=== PATIENT | female | born 1965 | race African-American/Black ===

== ENCOUNTER 2020-03-23 11:25 | Outpatient (REF) | payer OTHER, SELFPAY | END 2020-03-23 11:26 | disposition home or self-care (01) | LOC: HO.LAB 11:25 | PROVIDERS: Visit Provider Internal Medicine | DX: Z20.822 Contact with and (suspected) exposure to COVID-19 (principal) | CPT/HCPCS: 36415; C9803; U0003; U0005 ==

== ENCOUNTER 2020-05-31 09:22 | Outpatient (REF) | payer OTHER, SELFPAY | END 2020-05-31 09:23 | disposition home or self-care (01) | LOC: HO.LAB 09:22 | PROVIDERS: Visit Provider Internal Medicine | DX: Z20.822 Contact with and (suspected) exposure to COVID-19 (principal) | CPT/HCPCS: C9803; U0003; U0005 ==

== ENCOUNTER 2020-07-26 08:12 | Outpatient (REF) | payer OTHER, SELFPAY ==
--- NOTE | ~2020-07-26 | CT_ITS ---
EXAMINATION: CT ABDOMEN AND PELVIS WITHOUT AND WITH CONTRAST CLINICAL INFORMATION: Right lower quadrant pain COMPARISON: Previous abdominal ultrasound most recent July [address] of the abdomen and pelvis February 2014 TECHNIQUE: Multidetector volumetric imaging was performed of the abdomen and pelvis before and after the IV administration of 85 mL of Omnipaque 350 intravenous contrast. Sagittal and coronal reformatted images were obtained on the technologist's workstation. This CT examination was performed using dose optimization techniques as appropriate, variously including the following: *Automated exposure control *Adjustment of mA and/or kV according to patient size (this includes techniques or standardized protocols for targeted exams where dose is matched to indication/reason for exam; i.e. extremities or head) *Use of iterative reconstruction technique DLP: 2290 mGy-cm FINDINGS: LUNG BASES: The visualized lung bases are unremarkable. LIVER, GALLBLADDER, AND BILIARY TREE: The liver is normal in size, shape, and attenuation. No focal hepatic lesion or biliary ductal dilatation is present. The gallbladder is unremarkable with no evidence of radiopaque gallstones, gallbladder wall thickening, or obvious pericholecystic inflammatory changes. PANCREAS: Unremarkable SPLEEN: Unremarkable ADRENAL GLANDS: Unremarkable KIDNEYS AND URETERS: There is a 1 cm low-attenuation lesion in the upper pole of the right kidney. Difficult to visualize precontrast. Hounsfield units postcontrast measure 4 axial image 23 series 4 suggestive of a simple cyst. This is new from 2015 exam. There is a 2 x 2.6 cm low-attenuation lesion in the anterior left kidney. Hounsfield units precontrast 3 and Hounsfield units postcontrast measure 8 axial image 30 series 3 and 31 series 4 also compatible with a simple cyst. This is increased in size from 2015 exam. The kidneys are otherwise unremarkable. BLADDER: Unremarkable GASTROINTESTINAL TRACT: The small and large bowel are unremarkable. The appendix is unremarkable. ABDOMINAL WALL: There is diastasis of the rectus muscles and small umbilical hernia containing fat. LYMPH NODES: Normal VASCULAR: Unremarkable PELVIC VISCERA: The uterus has been removed. No pelvic mass is seen. OSSEOUS STRUCTURES: There are degenerative changes of the spine. CT/CT abdomen pelvis wo/w con IMPRESSION: Bilateral renal simple cysts. Otherwise unremarkable exam.
[2020-07-26] MEDS: iohexoL 350 MG/ML 100 ML INFUS..BTL IV (12:05)
[2020-07-26] MEDS: Barium Sulfate Oral (Vanilla) 450 ML ORAL.SUSP 900 ML PO (12:06)
== END 2020-07-26 08:13 | disposition home or self-care (01) ==
LOC: HO.CT 08:12
PROVIDERS: PCP Internal Medicine; Visit Provider Internal Medicine
DX: R10.31 Right lower quadrant pain (principal)
CPT/HCPCS: 74178; Q9967

== ENCOUNTER 2020-08-15 10:48 | Emergency (ER) | payer OTHER, SELFPAY ==
--- NOTE | ~2020-08-15 | XR_ITS ---
EXAMINATION: XR CHEST CLINICAL INFORMATION: SOB COMPARISON: None TECHNIQUE: 2 views of the chest were obtained. FINDINGS: No significant abnormality is noted involving the heart, lungs, mediastinum, bony thorax or soft tissues. XR/XR chest 2V IMPRESSION: Unremarkable chest examination.
[2020-08-15 10:57] VITALS: BP 173/100; PULSE 92; RESP 20; TEMP 36.7; O2SAT 95; BMI 43.2
--- NOTE | 2020-08-15 11:24 | ECG_ITS ---
Test Reason : DYSPNEA Blood Pressure : / mmHG Vent. Rate : 093 BPM Atrial Rate : 093 BPM P-R Int : 170 ms QRS Dur : 072 ms QT Int : 346 ms P-R-T Axes : 051 046 038 degrees QTc Int : 430 ms Normal sinus rhythm Normal ECG When compared with ECG of 17-SEP-2018 10:25, Vent. rate has increased BY 32 BPM Referred By: Lianne Whyte Electronically Signed By:Ruddy Avila
[2020-08-15 11:27] VITALS: BP 145/100; PULSE 99; RESP 22
--- NOTE | 2020-08-15 11:38 | ED_ITS ---
HPI - General Adult General Chief complaint: Dyspnea Stated complaint: WEAK SOB Time Seen by Provider: 08/15/20 11:23 Source: patient Mode of arrival: ambulatory Limitations: no limitations History of Present Illness HPI narrative: 55 y/o female with history of fibromyalgia, obesity, chronic abdominal pain who presents to the ER with 2-3 days of body aches, fatigue, sore throat, nasal congestion and dry cough. She states her symptoms started with a sore throat and post nasal drip and then evolved into coughing and body aches. It is now settled in my chest. She is tired and achey. She has had some poor PO intake and reports a generalized headache. No fevers or neck stiffness. No photophobia. No vision changes, focal weakness, numbness or tingling. She is fully vaccinated against COVID-19 but would like to be tested because she has young grandchildren. MD complaint: URI symptoms Onset (ago): day(s) (3) Location: head and chest Radiation: non-radiation Severity: moderate Quality: aching Pain Consistency: constant Relieving factors: rest Exacerbating factors: movement Associated symptoms: cough, headaches, loss of appetite, malaise, shortness of breath and weakness Treatments prior to arrival: none Related Data Previous Rx's Medication Instructions Recorded azithromycin [Zithromax Z-Jagjit] See Rx Instructions .ROUTE 08/15/20 .COMPLEX #6 tab benzonatate [Tessalon Perles] 100 mg PO TID PRN #10 cap 08/15/20 prednisone 40 mg PO DAILY #10 tab 08/15/20 Allergies Allergy/AdvReac Type Severity Reaction Status Date / Time fluticasone [From Flonase] Allergy Mild HIVES Unverified 11/06/19 17:41 acetaminophen [Vicodin] Allergy Unknown Verified 12/04/18 00:00 amoxicillin [AMOXICILLIN] Allergy Unknown HIVES, Unverified 11/06/19 17:41 NAUSEA hydrocodone [Vicodin] Allergy Unknown Verified 12/04/18 00:00 Flonase Allergy Unknown Uncoded 12/04/18 00:00 From VICODIN Allergy Unknown HIVES Uncoded 11/06/19 17:41 Review of Systems Review of Systems: Constitutional: No Fever, No Chills ENT/Mouth: + sore throat, + Rhinorrhea, No Swallowing Difficulty Eyes: No Eye Pain, No Swelling, No Redness Cardiovascular: No Chest Pain, + SOB, No Orthopnea, No Edema Respiratory: + Cough, No Sputum, No Wheezing, + dyspnea Gastrointestinal: + Nausea, No Vomiting, No Diarrhea, No abdominal Pain, No Hematochezia, No Melena Genitourinary: No Dysuria, No Urinary Frequency, No Hematuria Musculoskeletal: No joint pain, No Myalgias Skin: No Skin Lesions, No rash Neuro: No Weakness, No Numbness, No Dizziness, + Headache Psych: No Anxiety/Panic, No Depression Heme/Lymph: No Bruising, No Lymphadenopathy Endocrine: No Polyuria, No Polydipsia [facility] Past Medical History Attestation statement: The following information was validated with the patient. Social History Social History Advance Directives: Yes Advance Directives Information Provided: Yes Advance Directives on File: No Patient : No Physical Exam Vital Signs: Vital Signs: Last Vital Signs Temp 98.5 F 08/15/20 12:27 Pulse 75 08/15/20 12:27 Resp 17 08/15/20 12:27 BP 146/80 H 08/15/20 12:27 Pulse Ox 96 08/15/20 12:27 Body Mass Index 43.2 Appearance: Alert. Oriented X3. No acute distress. Eyes: Pupils equal, round and reactive to light. ENT: Pharynx with mild generalized ertythema. Neck: Normal inspection. Neck supple. CVS: Normal heart rate and rhythm. Pulses normal. Respiratory: No respiratory distress. Breath sounds normal. Abdomen: Soft and nontender. +BS x4 Skin: Skin warm and dry. Normal skin color. Normal skin turgor. No rashes. Extremities: No lower extremity edema. Neuro: Oriented X 3. No motor deficit. No sensory deficit. Course Course Course Narrative: 55 y/o female presenting with URI type symptoms of dry cough, sore throat, body aches x3 days. VS are stable and exam is benign. No hypoxia or tachycardia. Will get CXR, EKG and lab workup. Antitussive and IVF ordered. COVID and Strep swabs sent. Reevaluation(s) Reevaluation #1: Workup is unremarkable. Viral PCR and Strep are negative. Her symptoms are most likely due to viral etiology. SpO2 96% no respiratory distress. Will treat for acute bronchtitis and have her f/u with her PCP this week. Stable for d/c home. Medical Decision Making Lab Data Result diagrams: 08/15/20 12:08 08/15/20 12:08 Labs: Lab Results 08/15/20 08/15/20 08/15/20 Range/Units 12:08 12:08 12:08 WBC 8.5 (4.8-10.8) X10*3/uL RBC 4.86 (4.20-5.50) X10*6/uL Hgb 13.6 (12.0-16.0) g/dl Hct 41.4 (37-47) % MCV 85.2 (80-98) fL MCH 28.0 (27.0-33.0) pg MCHC 32.9 (31.0-35.0) g/dl RDW 13.0 (11.0-16.0) % Plt Count 320 (160-400) X10*3/uL MPV 8.6 L (9.4-12.3) fL Immature Gran % (Auto) 0.2 (0.0-0.4) % Neut % (Auto) 62.7 (45-73) % Lymph % (Auto) 23.1 (20-40) % [place] % (Auto) 10.3 (2-11) % Eos % (Auto) 3.5 (0-4) % Baso % (Auto) 0.2 (0-2) % Lymph # (Auto) 2.0 (1.2-4.9) X10*3/uL [place] # (Auto) 0.9 (0.1-1.2) X10*3/uL Eos # (Auto) 0.3 (0.0-0.4) X10*3/uL Baso # (Auto) 0.0 (0.0-0.2) X10*3/uL Abs Immat Gran (auto) 0.02 (0.00-0.03) X10*3/uL Absolute Neuts (auto) 5.3 (2.0-8.3) X10*3/uL Absolute Nucleated RBC 0.000 (0.0-0.012) X10*3/uL Nucleated RBC % (auto) 0.0 (0.0-0.2) /100WBC Sodium 139 (135-145) mmol/L Potassium 3.8 (3.3-5.1) mmol/L Chloride 106 (96-108) mmol/L Carbon Dioxide 27 (22-29) mmol/L Anion Gap 10 L (12-20) BUN 10 (9-16) mg/dL Creatinine 0.74 (0.5-1.4) mg/dL Estim Creat Clear Calc 109.0 Estimated GFR > 60 Random Glucose 94 (60-115) mg/dL Calcium 9.2 (8.4-10.2) mg/dL Magnesium 2.1 (1.6-2.6) mg/dL Total Bilirubin 0.4 (0.0-1.0) mg/dL Direct Bilirubin < 0.2 (0.0-0.5) mg/dL AST 16 (5-31) U/L ALT 21 (0-31) U/L Alkaline Phosphatase 128 H (39-117) U/L B-Natriuretic Peptide (<100) pg/mL Total Protein 7.8 (6.5-8.0) g/dL Albumin 4.1 (3.5-5.0) g/dL Urine Color Urine Appearance Urine pH (5.0-8.0) Ur Specific [place] (1.005-1.025) Urine Protein (NEG-TRACE) MG/DL Urine Glucose (UA) (NEG) MG/DL Urine Ketones (NEG) MG/DL Urine Blood (NEG) Urine Nitrite (NEG) Ur Leukocyte Esterase (NEG) S. pyogenes GrpA PRINCE (Negative) 08/15/20 08/15/20 08/15/20 Range/Units 12:08 12:08 12:32 WBC (4.8-10.8) X10*3/uL RBC (4.20-5.50) X10*6/uL Hgb (12.0-16.0) g/dl Hct (37-47) % MCV (80-98) fL MCH (27.0-33.0) pg MCHC (31.0-35.0) g/dl RDW (11.0-16.0) % Plt Count (160-400) X10*3/uL MPV (9.4-12.3) fL Immature Gran % (Auto) (0.0-0.4) % Neut % (Auto) (45-73) % Lymph % (Auto) (20-40) % [place] % (Auto) (2-11) % Eos % (Auto) (0-4) % Baso % (Auto) (0-2) % Lymph # (Auto) (1.2-4.9) X10*3/uL [place] # (Auto) (0.1-1.2) X10*3/uL Eos # (Auto) (0.0-0.4) X10*3/uL Baso # (Auto) (0.0-0.2) X10*3/uL Abs Immat Gran (auto) (0.00-0.03) X10*3/uL Absolute Neuts (auto) (2.0-8.3) X10*3/uL Absolute Nucleated RBC (0.0-0.012) X10*3/uL Nucleated RBC % (auto) (0.0-0.2) /100WBC Sodium (135-145) mmol/L Potassium (3.3-5.1) mmol/L Chloride (96-108) mmol/L Carbon Dioxide (22-29) mmol/L Anion Gap (12-20) BUN (9-16) mg/dL Creatinine (0.5-1.4) mg/dL Estim Creat Clear Calc Estimated GFR Random Glucose (60-115) mg/dL Calcium (8.4-10.2) mg/dL Magnesium (1.6-2.6) mg/dL Total Bilirubin (0.0-1.0) mg/dL Direct Bilirubin (0.0-0.5) mg/dL AST (5-31) U/L ALT (0-31) U/L Alkaline Phosphatase (39-117) U/L B-Natriuretic Peptide < 10 (<100) pg/mL Total Protein (6.5-8.0) g/dL Albumin (3.5-5.0) g/dL Urine Color YELLOW Urine Appearance CLEAR Urine pH 6.0 (5.0-8.0) Ur Specific [place] <= 1.005 (1.005-1.025) Urine Protein NEG (NEG-TRACE) MG/DL Urine Glucose (UA) NEG (NEG) MG/DL Urine Ketones NEG (NEG) MG/DL Urine Blood NEG (NEG) Urine Nitrite NEG (NEG) Ur Leukocyte Esterase NEG (NEG) S. pyogenes GrpA PRINCE Negative (Negative) 08/15/20 Range/Units 12:32 WBC (4.8-10.8) X10*3/uL RBC (4.20-5.50) X10*6/uL Hgb (12.0-16.0) g/dl Hct (37-47) % MCV (80-98) fL MCH (27.0-33.0) pg MCHC (31.0-35.0) g/dl RDW (11.0-16.0) % Plt Count (160-400) X10*3/uL MPV (9.4-12.3) fL Immature Gran % (Auto) (0.0-0.4) % Neut % (Auto) (45-73) % Lymph % (Auto) (20-40) % [place] % (Auto) (2-11) % Eos % (Auto) (0-4) % Baso % (Auto) (0-2) % Lymph # (Auto) (1.2-4.9) X10*3/uL [place] # (Auto) (0.1-1.2) X10*3/uL Eos # (Auto) (0.0-0.4) X10*3/uL Baso # (Auto) (0.0-0.2) X10*3/uL Abs Immat Gran (auto) (0.00-0.03) X10*3/uL Absolute Neuts (auto) (2.0-8.3) X10*3/uL Absolute Nucleated RBC (0.0-0.012) X10*3/uL Nucleated RBC % (auto) (0.0-0.2) /100WBC Sodium (135-145) mmol/L Potassium (3.3-5.1) mmol/L Chloride (96-108) mmol/L Carbon Dioxide (22-29) mmol/L Anion Gap (12-20) BUN (9-16) mg/dL Creatinine (0.5-1.4) mg/dL Estim Creat Clear Calc Estimated GFR Random Glucose (60-115) mg/dL Calcium (8.4-10.2) mg/dL Magnesium (1.6-2.6) mg/dL Total Bilirubin (0.0-1.0) mg/dL Direct Bilirubin (0.0-0.5) mg/dL AST (5-31) U/L ALT (0-31) U/L Alkaline Phosphatase (39-117) U/L B-Natriuretic Peptide (<100) pg/mL Total Protein (6.5-8.0) g/dL Albumin (3.5-5.0) g/dL Urine Color Urine Appearance Urine pH (5.0-8.0) Ur Specific [place] (1.005-1.025) Urine Protein (NEG-TRACE) MG/DL Urine Glucose (UA) (NEG) MG/DL Urine Ketones (NEG) MG/DL Urine Blood (NEG) Urine Nitrite (NEG) Ur Leukocyte Esterase (NEG) S. pyogenes GrpA PRINCE Cancelled (Negative) ECG Data Attestation: I personally reviewed and interpreted this ECG as follows: Interpretation: normal sinus rhythm, HR 93 bpm, normal GA interval, normal QTc, no ST segment elevations or depressions. Critical Care Time Critical Care Time Critical Care Time: No Discharge Plan Discharge Clinical Impression: Acute viral syndrome Patient Disposition: Home, Self-Care Instructions: Viral Syndrome (ED) Additional Instructions: You are negative for COVID, Flu and RSV. Your lab workup was unremarkable. Your EKG were normal. Your chest x-ray and oxygen levels were normal. Rest. Drink plenty of fluids. Take over the counter cold/flu medications as needed for your symptoms. Take Tylenol and/or Motrin as needed for fevers and body aches. Follow up with your doctor this week. If you shortness of breath worsens, if you develop difficulty breathing or any other concerning symptom come back to the ER for further evaluation. Prescriptions: New azithromycin [Zithromax Z-Jagjit] 250 mg tablet See Rx Instructions .ROUTE .COMPLEX Qty: 6 RF: 0 prednisone 20 mg tablet 40 mg PO DAILY Qty: 10 RF: 0 benzonatate [Tessalon Perles] 100 mg capsule 100 mg PO TID PRN (Reason: cough) Qty: 10 RF: 0
[2020-08-15] MEDS: 0.9 % Sodium Chloride 1,000 ML 999 ML IVCONT (11:59)
[2020-08-15] MEDS: Ketorolac Tromethamine 30 MG/ML VIAL IVPUSH (11:59)
[2020-08-15 12:15] LABS: Basophils Percent Auto 0.2 % (0-2); Eosinophils Absolute Auto 0.3 X10*3/uL (0.0-0.4); Eosinophils Percent Auto 3.5 % (0-4); Hematocrit 41.4 % (37-47); Hemoglobin 13.6 g/dl (12.0-16.0); Imm Gran Abs Auto 0.02 X10*3/uL (0.00-0.03); Imm Gran Pct Auto 0.2 % (0.0-0.4); Lymphocytes Percent Auto 23.1 % (20-40); MANUAL DIFF FLAG NO; Mean Corpuscular HGB Conc 32.9 g/dl (31.0-35.0); Mean Corpuscular Volume 85.2 fL (80-98); Mean Platelet Volume 8.6 fL (9.4-12.3); Monocytes Absolute Auto 0.9 X10*3/uL (0.1-1.2); Monocytes Percent Auto 10.3 % (2-11); Neutrophils Absolute Auto 5.3 X10*3/uL (2.0-8.3); Neutrophils Percent Auto 62.7 % (45-73); Platelet Count 320 X10*3/uL (160-400); Red Blood Count 4.86 X10*6/uL (4.20-5.50); White Blood Count 8.5 X10*3/uL (4.8-10.8)
[2020-08-15] MEDS: guaiFENesin DM 200/20/10 ML 10 ML SYRUP PO (12:15)
[2020-08-15 12:19] LABS: Glucose Urine UA NEG (NEG); Leukocyte Esterase Urine NEG (NEG); Nitrite Urine NEG (NEG); Specific Gravity - Urine <= 1.005 (1.005-1.025); Urine Blood NEG (NEG); Urine Ketones NEG (NEG); Urine Protein NEG (NEG-TRACE)
[2020-08-15 12:20] LABS: Appearance Urine CLEAR; Color Urine YELLOW
[2020-08-15 12:27] VITALS: BP 146/80; PULSE 75; RESP 17; TEMP 36.9; O2SAT 96
[2020-08-15 12:44] LABS: Magnesium 2.1 mg/dL (1.6-2.6)
[2020-08-15 12:46] LABS: Alanine Aminotransferase 21 U/L (0-31); Albumin Level 4.1 g/dL (3.5-5.0); Alkaline Phosphatase 128 U/L (39-117); Anion Gap 10 (12-20); Aspartate Amino Transferase 16 U/L (5-31); Bilirubin Direct < 0.2 mg/dL (0.0-0.5); Bilirubin Total 0.4 mg/dL (0.0-1.0); Blood Urea Nitrogen 10 mg/dL (9-16); Calcium 9.2 mg/dL (8.4-10.2); Carbon Dioxide 27 mmol/L (22-29); Chloride 106 mmol/L (96-108); Estimated Glomerular Filt Rate > 60; Glucose Random 94 mg/dL (60-115); Potassium 3.8 mmol/L (3.3-5.1); Sodium 139 mmol/L (135-145); Total Protein 7.8 g/dL (6.5-8.0)
[2020-08-15 12:46] LABS: IDNOW Serial# 9DD0AD1C; Strep A Nucleic Acid Negative (Negative)
[2020-08-15 12:48] LABS: B Type Natriuretic Peptide < 10 pg/mL (<100)
[2020-08-15 12:54] LABS: Influenza A PCR NEGATIVE (Negative); Influenza B PCR NEGATIVE (Negative); Resp Syncy Virus RNA Qual PCR NEGATIVE (Negative); SARS COV2 PCR INHOUSE NEGATIVE (Negative)
== END 2020-08-15 15:19 | disposition home or self-care (01) ==
PROVIDERS: Physician Assistant; Emergency Provider Emergency Medicine; PCP Internal Medicine
DX: B34.9 Viral infection, unspecified (principal); R06.02 Shortness of breath; Z20.822 Contact with and (suspected) exposure to COVID-19
CPT/HCPCS: 0241U; 36415; 71046; 80048; 80076; 81003; 83735; 83880; 85025; 87651; 93005; 96361; 96374; 99284; J1885

== ENCOUNTER 2020-09-22 07:58 | Outpatient (REF) | payer OTHER, SELFPAY | END 2020-09-22 07:59 | disposition home or self-care (01) | LOC: HO.LAB 07:58 | PROVIDERS: Visit Provider Internal Medicine | DX: Z20.822 Contact with and (suspected) exposure to COVID-19 (principal) | CPT/HCPCS: C9803; U0003; U0005 ==

== ENCOUNTER 2022-04-27 14:22 | Emergency (ER) | payer OTHER, SELFPAY ==
--- NOTE | ~2022-04-27 | CT_ITS ---
EXAMINATION: CT INNER EAR TEMPORAL BONES CLINICAL INFORMATION: Bilateral acute otitis media. Postauricular pain/tenderness. COMPARISON: Brain MRI from 09/01/2016. TECHNIQUE: Multidetector helical imaging was performed in the axial plane with generation of oblique axial and coronal reformatted projections. This CT examination was performed using dose optimization techniques as appropriate, variously including the following: *Automated exposure control. *Adjustment of mA and/or kV according to patient size (this includes techniques or standardized protocols for targeted exams where dose is matched to indication/reason for exam; i.e. extremities or head). *Use of iterative reconstruction technique. DLP: 255 mGy-cm FINDINGS: Right Temporal Bone: No suspicious periauricular soft tissue edema or collection. The external auditory canal is normal in appearance. The tympanic membrane is normal. The ossicular chain is intact. No soft tissue abnormality within the middle ear. Trace mastoid effusion. Otherwise, the mastoid antrum and remaining mastoid air cells are well aerated. The sigmoid plate is intact. Normal ossification of the bony labyrinth. Normal appearance of the cochlea, vestibule, and semicircular canals. The vestibular aqueduct is normal. Normal appearance of the labyrinthine, geniculate, tympanic, and mastoid segments of the facial nerve. Normal appearance of the internal auditory canal. The cochlear aperture is normal. Normal appearance of the carotid canal and jugular foramen. Left Temporal Bone: No suspicious periauricular soft tissue edema or collection. The external auditory canal is normal in appearance. The tympanic membrane is normal. The ossicular chain is intact. No soft tissue abnormality within the middle ear. The mastoid antrum and additional mastoid air cells remain well aerated. The sigmoid plate is intact. Normal ossification of the bony labyrinth. Normal appearance of the cochlea, vestibule, and semicircular canals. The vestibular aqueduct is normal. Normal appearance of the labyrinthine, geniculate, tympanic, and mastoid segments of the facial nerve. Normal appearance of the internal auditory canal. The cochlear aperture is normal. Normal appearance of the carotid canal and jugular foramen. Other: The temporomandibular joints are normal in appearance bilaterally. No demonstrated intracranial abnormalities of the visualized skull base. No significant abnormalities of the visualized orbits. Mild mucosal thickening of the visualized paranasal sinuses. No abnormal contours of the visualized pharynx. CT/CT mastoid IMPRESSION: Unremarkable examination.
--- NOTE | 2022-04-27 14:56 | ED.EAR ---
HPI - Ear Problem General Chief complaint: Ear Problems <Kelsy Doran CNP - Last Filed: 04/27/22 14:59> Stated complaint: Ear pain sent form walkin <Kelsy Doran CNP - Last Filed: 04/27/22 14:59> Time Seen by Provider: 04/27/22 18:16 <Kelsy Doran CNP - Last Filed: 04/27/22 14:59> Source: patient <REE Hwang - Last Filed: 04/27/22 18:51> Mode of arrival: ambulatory <REE Hwagn - Last Filed: 04/27/22 18:51> Limitations: no limitations <REE Hwang Last Filed: 04/27/22 18:51> History of Present Illness HPI Narrative: This is a 57-year-old female presenting to the emergency department for evaluation of bilateral ear discomfort times a week. Patient tells me she was seen at urgent care today and was told to come in to get a CT scan to make sure she did not have mastoiditis. Patient tells me she is having severe ear pain bilaterally she tells me touching her ears makes it worse. Patient reports that the pain radiates to behind her urine down into her neck. Patient also having a sore throat, body aches, subjective fevers and chills. Denies chest pain, shortness of breath, nausea, vomiting, abdominal pain, headache, vision changes, difficulty swelling, changes in voice, recent dental procedures. 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 <REE Hwang Last Filed: 04/27/22 18:51> Related Data Home medications: Home Medications Medication Instructions Recorded Confirmed bupropion HCl 300 mg 24 hr tablet, 300 mg PO QAM 04/27/22 extended release cholecalciferol (vitamin D3) 50 50 mcg PO DAILY 04/27/22 mcg (2,000 unit) capsule citalopram 20 mg tablet 20 mg PO QAM 04/27/22 divalproex 500 mg tablet,extended 1,000 mg PO 04/27/22 release 24 hr hydrochlorothiazide 25 mg tablet 25 mg PO QAM 04/27/22 losartan 50 mg tablet 50 mg PO DAILY 04/27/22 prazosin 5 mg capsule 5 mg PO BEDTIME 04/27/22 quetiapine 50 mg tablet 50 - 100 mg PO BEDTIME 04/27/22 spironolactone 50 mg tablet 50 mg PO QAM 04/27/22 Previous Rx's Medication Instructions Recorded azithromycin 250 mg tablet See Rx Instructions PO .COMPLEX #6 08/15/20 (Zithromax Z-Jagjit) tabs benzonatate 100 mg capsule 100 mg PO TID PRN cough #10 caps 08/15/20 (Tessalon Perles) prednisone 20 mg tablet 40 mg PO DAILY #10 tabs 08/15/20 Magic Mouthwash 5 ml PO TID #240 mL 04/27/22 Diphen/Lido/Antacid 1:1:1 240 mL suspension ciprofloxacin 0.3 %-dexamethasone 4 drp otic (ears) BID 7 days #7.5 04/27/22 0.1 % ear drops,suspension mL (Ciprodex) doxycycline hyclate 100 mg capsule 100 mg PO BID 10 days #20 caps 04/27/22 prednisone 20 mg tablet 40 mg PO DAILY 5 days #10 tabs 04/27/22 <Kelsy Doran CNP - Last Filed: 04/27/22 14:59> Allergies/adverse reactions: Allergies Allergy/AdvReac Type Severity Reaction Status Date / Time fluticasone [From Flonase] Allergy Mild HIVES Unverified 11/06/19 17:41 amoxicillin [AMOXICILLIN] Allergy Unknown HIVES, Unverified 11/06/19 17:41 NAUSEA hydrocodone [Vicodin] Allergy Unknown Rash Verified 04/27/22 12:58 Flonase Allergy Unknown Hives Uncoded 04/27/22 12:58 From VICODIN Allergy Unknown HIVES Uncoded 11/06/19 17:41 <Kelsy Doran CNP - Last Filed: 04/27/22 14:59> Review of Systems Review of Systems: Constitutional : No Weight loss, + Fever, + Chills, + Fatigue, + Malaise ENT/Mouth : + sore throat, No Rhinorrhea, + ear pain Eyes: No Eye Pain, No Swelling, No Redness Cardiovascular : No Chest Pain, No SOB, No Dyspnea on Exertion, No Orthopnea, No Edema, No Palpitations Respiratory : No Cough, No Sputum, No Wheezing Gastrointestinal : No Nausea, No Vomiting, No Diarrhea, No Constipation, No abdominal Pain, No Hematochezia, No Melena Genitourinary : No Dysuria, No Urinary Frequency, No Hematuria, Musculoskeletal : No joint pain, + Myalgias, No Joint Swelling Skin : No Skin Lesions, No rash Neuro : No Weakness, No Numbness, No Dizziness, No Headache Psych : No Anxiety/Panic, No Depression Heme/Lymph: No Bruising, No Bleeding,No Lymphadenopathy Endocrine : No Polyuria, No Polydipsia All other systems reviewed and are negative <REE Hwang - Last Filed: 04/27/22 18:51> Yes all other systems are reviewed and are negative <REE Hwang - Last Filed: 04/27/22 18:51> [facility]LY [facility] Past Medical History Attestation statement: The following information was validated with the patient. <REE Hwang - Last Filed: 04/27/22 18:51> Source: old records reviewed and nursing notes reviewed <REE Hwang - Last Filed: 04/27/22 18:51> Medical History: Medical History Anxiety Arthralgia De Quervain's tenosynovitis HTN (hypertension) Right calf pain Right upper quadrant abdominal pain Vitamin D deficiency <Kelsy oDran CNP - Last Filed: 04/27/22 14:59> Social History Social History: Social History Smoked in Last 30 Days: No Use of substances other than those prescribed or required for medical reasons: No Advance Directives: No <Kelsy Doran CNP - Last Filed: 04/27/22 14:59> Physical Exam Vital Signs: Vital Signs: Last Vital Signs Temp 97.5 F 04/27/22 14:58 Pulse 75 04/27/22 14:58 Resp 18 04/27/22 14:58 BP 191/93 H 04/27/22 14:58 Pulse Ox 98 04/27/22 14:58 O2 Del Method 04/27/22 14:58 BMI result Body Mass Index 43.7 <Kelsy Doran CNP - Last Filed: 04/27/22 14:59> Vital Signs: Last Vital Signs Temp 97.5 F 04/27/22 14:58 Pulse 75 04/27/22 14:58 Resp 18 04/27/22 14:58 BP 191/93 H 04/27/22 14:58 Pulse Ox 98 04/27/22 14:58 O2 Del Method 04/27/22 14:58 BMI result Body Mass Index 43.7 Vital signs stable, hypertension noted however likely secondary to pain. <REE Hwang - Last Filed: 04/27/22 18:51> Appearance: Alert.? Oriented X3.? No acute distress.? Head: Normocephalic, atraumatic, no step-offs or deformities Eyes: Pupils equal, round and reactive to light.? ENT: Pharynx normal. No signs of abscess. Uvula midline. Controlling secretions well and speaking full sentences. Bilateral tympanic membranes erythematous, ear canal erythematous with edema bilaterally. Pain with manipulation of bilateral external ears. No mastoid tenderness. No signs of ear effusion or hemotympanum ? Neck: Normal inspection.? Neck supple.? CVS: Normal heart rate and rhythm.? Pulses normal.? Respiratory: No respiratory distress.? Breath sounds normal.? Abdomen: Soft and nontender.? Skin: Skin warm and dry.? Normal skin color.? Normal skin turgor.? Extremities: No lower extremity edema.? No calf ttp. 5/5 strength to bilateral upper and lower extremities Neuro: Oriented X 3.? No motor deficit.? No sensory deficit. CN 2-12 intact <REE Hwang - Last Filed: 04/27/22 18:51> Course Course Course Narrative: This is an RME: Additional HPI, ROS, PE not included below will be deferred to primary provider. Patient is a 57-year-old female who presents to emergency department with referral from [facility] walk-in. She was evaluated there today, diagnosed with bilateral acute otitis media and pharyngitis. Upon physical examination had reports of postauricular pain/tenderness bilaterally. Sent to ED to evaluate for mastoiditis. Plan: labs, CT <Kelsy Doran CNP - Last Filed: 04/27/22 14:59> Reevaluation(s) Reevaluation #1: CBC with slight leukocytosis likely secondary to otitis media/externa, chemistry with no acute findings requiring intervention. CT of mastoid region unremarkable. No signs of mastoiditis. Will treat for otitis media, otitis externa. Educated patient on diagnosis and treatment plan, answered all question, patient verbalizes understanding. At this time patient will be discharged home, advised to return with new or worsening symptoms. Educated on worrisome signs and symptoms and when to return. At this time I feel comfortable discharge home. <REE Hwang - Last Filed: 04/27/22 18:51> Time: 18:51 <REE Hwang - Last Filed: 04/27/22 18:51> Medical Decision Making Medical Decision Making [facility] Narrative: 1843 57-year-old female presents for evaluation of bilateral ear pain times a week. Also reporting sore throat, fatigue, malaise, subjective fevers and chills. Multiple sick contacts. Physical exam significant for Pharynx normal. No signs of abscess. Uvula midline. Controlling secretions well and speaking full sentences. Bilateral tympanic membranes erythematous, ear canal erythematous with edema bilaterally. Pain with manipulation of bilateral external ears. No mastoid tenderness. No signs of ear effusion or hemotympanum ? Likely bilateral otitis media and otitis externa. No signs of mastoiditis. No signs of malignant otitis. Sore throat likely viral, I do not suspect strep pharyngitis, epiglottitis, peritonsillar abscess. No signs of airway compromise. Plan at this time basic labs, CT scan ordered from triage. <REE Hwang - Last Filed: 04/27/22 18:51> Differential Diagnosis Differential Diagnoses: The differential diagnosis associated with the presentation includes <REE Hwang Last Filed: 04/27/22 18:51> Likely bilateral otitis media and otitis externa. No signs of mastoiditis. No signs of malignant otitis. Sore throat likely viral, I do not suspect strep pharyngitis, epiglottitis, peritonsillar abscess. No signs of airway compromise. <REE Hwang Last Filed: 04/27/22 18:51> Admission/Observation Consideration of admission/observation: Escalation of care including admission/observation considered <REE Hwang - Last Filed: 04/27/22 18:51> Unlikely <REE Hwang - Last Filed: 04/27/22 18:51> Lab Data MDM Lab Attestation statement: I reviewed the patient's lab results. <REE Hwang - Last Filed: 04/27/22 18:51> Result Diagrams: 04/27/22 16:43 04/27/22 16:43 <Kelsy Doran CNP - Last Filed: 04/27/22 14:59> Labs: Lab Results 04/27/22 04/27/22 Range/Units 16:43 16:43 WBC 11.3 H (4.8-10.8) X10*3/uL RBC 5.01 (4.20-5.50) X10*6/uL Hgb 14.1 (12.0-16.0) g/dl Hct 42.9 (37.0-47.0) % MCV 85.6 (80.0-98.0) fL MCH 28.1 (27.0-33.0) pg MCHC 32.9 (31.0-35.0) g/dl RDW 13.0 (11.0-16.0) % Plt Count 332 (160-400) X10*3/uL MPV 8.7 L (9.4-12.3) fL Immature Gran % (Auto) 0.4 (0.0-0.4) % Neut % (Auto) 76.2 H (45-73) % Lymph % (Auto) 16.3 L (20-40) % Ripley % (Auto) 4.7 (2-11) % Eos % (Auto) 2.1 (0-4) % Baso % (Auto) 0.3 (0-2) % Lymph # (Auto) 1.9 (1.2-4.9) X10*3/uL Ripley # (Auto) 0.5 (0.1-1.2) X10*3/uL Eos # (Auto) 0.2 (0.0-0.4) X10*3/uL Baso # (Auto) 0.0 (0.0-0.2) X10*3/uL Abs Immat Gran (auto) 0.04 H (0.00-0.03) X10*3/uL Absolute Neuts (auto) 8.7 H (2.0-8.3) x10*3/uL Absolute Nucleated RBC 0.000 (0.0-0.012) X10*3/uL Nucleated RBC % (auto) 0.0 (0.0-0.2) /100WBC Sodium 142 (135-145) mmol/L Potassium 4.2 (3.3-5.1) mmol/L Chloride 103 (96-108) mmol/L Carbon Dioxide 29 (22-29) mmol/L Anion Gap 14 (12-20) BUN 9 (9-16) mg/dL Creatinine 0.72 (0.5-1.4) mg/dL Estim Creat Clear Calc 110.2 Estimated GFR > 60 Random Glucose 95 (60-115) mg/dL Calcium 9.6 (8.4-10.2) mg/dL Total Bilirubin 0.4 (0.0-1.0) mg/dL AST 14 (5-31) U/L ALT 15 (0-31) U/L Alkaline Phosphatase 132 H (39-117) U/L Total Protein 7.9 (6.5-8.0) g/dL Albumin 4.1 (3.5-5.0) g/dL <Kelsy Doran, WORK DISTRIBUTOR - Last Filed: 04/27/22 14:59> Lab Results 04/27/22 04/27/22 Range/Units 16:43 16:43 WBC 11.3 H (4.8-10.8) X10*3/uL RBC 5.01 (4.20-5.50) X10*6/uL Hgb 14.1 (12.0-16.0) g/dl Hct 42.9 (37.0-47.0) % MCV 85.6 (80.0-98.0) fL MCH 28.1 (27.0-33.0) pg MCHC 32.9 (31.0-35.0) g/dl RDW 13.0 (11.0-16.0) % Plt Count 332 (160-400) X10*3/uL MPV 8.7 L (9.4-12.3) fL Immature Gran % (Auto) 0.4 (0.0-0.4) % Neut % (Auto) 76.2 H (45-73) % Lymph % (Auto) 16.3 L (20-40) % Ripley % (Auto) 4.7 (2-11) % Eos % (Auto) 2.1 (0-4) % Baso % (Auto) 0.3 (0-2) % Lymph # (Auto) 1.9 (1.2-4.9) X10*3/uL Ripley # (Auto) 0.5 (0.1-1.2) X10*3/uL Eos # (Auto) 0.2 (0.0-0.4) X10*3/uL Baso # (Auto) 0.0 (0.0-0.2) X10*3/uL Abs Immat Gran (auto) 0.04 H (0.00-0.03) X10*3/uL Absolute Neuts (auto) 8.7 H (2.0-8.3) x10*3/uL Absolute Nucleated RBC 0.000 (0.0-0.012) X10*3/uL Nucleated RBC % (auto) 0.0 (0.0-0.2) /100WBC Sodium 142 (135-145) mmol/L Potassium 4.2 (3.3-5.1) mmol/L Chloride 103 (96-108) mmol/L Carbon Dioxide 29 (22-29) mmol/L Anion Gap 14 (12-20) BUN 9 (9-16) mg/dL Creatinine 0.72 (0.5-1.4) mg/dL Estim Creat Clear Calc 110.2 Estimated GFR > 60 Random Glucose 95 (60-115) mg/dL Calcium 9.6 (8.4-10.2) mg/dL Total Bilirubin 0.4 (0.0-1.0) mg/dL AST 14 (5-31) U/L ALT 15 (0-31) U/L Alkaline Phosphatase 132 H (39-117) U/L Total Protein 7.9 (6.5-8.0) g/dL Albumin 4.1 (3.5-5.0) g/dL <Susanita Gutierrez, PA - Last Filed: 04/27/22 18:51> External Record Review External record reviewed: Inpatient record, Office record, Outpatient record, Prior outpatient labs, Prior outpatient radiology, Primary care record and Outside ED record <REE Hwang - Last Filed: 04/27/22 18:51> Core Measures AMI core measures followed: Yes <REE Hwang - Last Filed: 04/27/22 18:51> Measure exclusions: not indicated <REE Hwang - Last Filed: 04/27/22 18:51> Critical Care Time Critical Care Time Critical Care Time: No <REE Hwang - Last Filed: 04/27/22 18:51> Discharge Plan Discharge Clinical Impression: Otitis media, Otitis externa <Kelsy Doran CNP - Last Filed: 04/27/22 14:59> Patient Disposition: Home, Self-Care <Kelsy Doran CNP - Last Filed: 04/27/22 14:59> Instructions: Ear Infection (ED) <Kelsy Doran CNP - Last Filed: 04/27/22 14:59> Additional Instructions: Take your medications as prescribed. If you were prescribed antibiotics today, it is important that you take your medication to their entirety, do not skip any doses, do not finish them early. Follow-up with your primary care provider this week. Return to the emergency department with new or worsening symptoms. Such as fevers, chills, chest pain, shortness of breath, nausea, vomiting, dizziness, headache, vision changes, lethargy In case of emergency call 911 <Kelsy Doran CNP - Last Filed: 04/27/22 14:59> Prescriptions: New doxycycline hyclate 100 mg capsule 100 mg PO BID 10 Days Qty: 20 0RF prednisone 20 mg tablet 40 mg PO DAILY 5 Days Qty: 10 0RF ciprofloxacin-dexamethasone [Ciprodex] 0.3-0.1 % drops,suspension 4 drp otic (ears) BID 7 Days Qty: 7.5 0RF Magic Mouthwash Diphen/Lido/Antacid 1:1:1 240 mL suspension 5 ml PO TID Qty: 240 0RF Rx Instructions: Lidocaine Viscous 2 % 80mL; diphenhydramine 12.5 mg/5 mL 80mL; aluminum-mag hydrox-simeth [id number]/5mL 80mL Swish and spit, do not swallow No Action azithromycin [Zithromax Z-Jagjit] 250 mg tablet See Rx Instructions .ROUTE .COMPLEX Qty: 6 0RF Rx Instructions: take 500 mg today (day 1), then 250 mg for 4 days (days 2-5) prednisone 20 mg tablet 40 mg PO DAILY Qty: 10 0RF benzonatate [Tessalon Perles] 100 mg capsule 100 mg PO TID PRN (Reason: cough) Qty: 10 0RF cholecalciferol (vitamin D3) 50 mcg (2,000 unit) capsule 50 mcg PO DAILY bupropion HCl 300 mg tablet extended release 24 hr 300 mg PO QAM spironolactone 50 mg tablet 50 mg PO QAM hydrochlorothiazide 25 mg tablet 25 mg PO QAM divalproex 500 mg tablet extended release 24 hr 1,000 mg PO citalopram 20 mg tablet 20 mg PO QAM prazosin 5 mg capsule 5 mg PO BEDTIME losartan 50 mg tablet 50 mg PO DAILY quetiapine 50 mg tablet 50 - 100 mg PO BEDTIME <Kelsy Doran CNP - Last Filed: 04/27/22 14:59> Referrals: Fred Lowery MD [Primary Care Provider] - 2 days Heber Chavez [Physician] - 3 days <Kelsy Doran CNP - Last Filed: 04/27/22 14:59>
[2022-04-27 14:58] VITALS: BP 191/93; PULSE 75; RESP 18; TEMP 36.4; O2SAT 98; BMI 43.7
[2022-04-27 16:49] LABS: MANUAL DIFF FLAG NO
[2022-04-27 16:51] LABS: Basophils Percent Auto 0.3 % (0-2); Eosinophils Absolute Auto 0.2 X10*3/uL (0.0-0.4); Eosinophils Percent Auto 2.1 % (0-4); Hematocrit 42.9 % (37.0-47.0); Hemoglobin 14.1 g/dl (12.0-16.0); Imm Gran Abs Auto 0.04 X10*3/uL (0.00-0.03); Imm Gran Pct Auto 0.4 % (0.0-0.4); Lymphocytes Absolute Auto 1.9 X10*3/uL (1.2-4.9); Lymphocytes Percent Auto 16.3 % (20-40); Mean Corpuscular HGB Conc 32.9 g/dl (31.0-35.0); Mean Corpuscular Hemoglobin 28.1 pg (27.0-33.0); Mean Corpuscular Volume 85.6 fL (80.0-98.0); Mean Platelet Volume 8.7 fL (9.4-12.3); Monocytes Absolute Auto 0.5 X10*3/uL (0.1-1.2); Monocytes Percent Auto 4.7 % (2-11); Neutrophils Absolute Auto 8.7 x10*3/uL (2.0-8.3); Neutrophils Percent Auto 76.2 % (45-73); Platelet Count 332 X10*3/uL (160-400); Red Blood Count 5.01 X10*6/uL (4.20-5.50); White Blood Count 11.3 X10*3/uL (4.8-10.8)
[2022-04-27 17:05] LABS: Alanine Aminotransferase 15 U/L (0-31); Albumin Level 4.1 g/dL (3.5-5.0); Alkaline Phosphatase 132 U/L (39-117); Anion Gap 14 (12-20); Aspartate Amino Transferase 14 U/L (5-31); Bilirubin Total 0.4 mg/dL (0.0-1.0); Blood Urea Nitrogen 9 mg/dL (9-16); Calcium 9.6 mg/dL (8.4-10.2); Carbon Dioxide 29 mmol/L (22-29); Chloride 103 mmol/L (96-108); Creatinine Clr Calc Pharmacy 110.2; Estimated Glomerular Filt Rate > 60; Glucose Random 95 mg/dL (60-115); Potassium 4.2 mmol/L (3.3-5.1); Sodium 142 mmol/L (135-145); Total Protein 7.9 g/dL (6.5-8.0)
[2022-04-27] MEDS: Doxycycline Monohydrate 100 MG CAPSULE PO (18:55)
[2022-04-27] MEDS: Lidocaine HCl Viscous 2 % 15 ML SOLUTION MUCOUS MEM (18:55)
== END 2022-04-27 19:00 | disposition home or self-care (01) ==
PROVIDERS: Nurse Practitioner Family; Emergency Provider Internal Medicine; PCP Internal Medicine
DX: H66.93 Otitis media, unspecified, bilateral (principal); H60.93 Unspecified otitis externa, bilateral; M54.2 Cervicalgia; Z79.899 Other long term (current) drug therapy
CPT/HCPCS: 36415; 70481; 80053; 85025; 99284

== ENCOUNTER 2022-05-09 11:00 | Outpatient (REF) | payer OTHER, SELFPAY ==
--- NOTE | ~2022-05-09 | XR_ITS ---
EXAMINATION: XR CHEST CLINICAL INFORMATION: Cough, shortness of breath with exertion. COMPARISON: Chest radiographs 08/15/2020, 09/13/2015 TECHNIQUE: 2 views of the chest were obtained. FINDINGS: The lungs are clear and there is no airspace consolidation or groundglass opacity. The costophrenic sulci are well-defined. No effusion. Heart size normal. Vascularity normal. The hilar and mediastinal contours and bony structures are similar to prior exams. XR/XR chest 2V IMPRESSION: Lungs clear. No acute intrathoracic disease.
== END 2022-05-09 11:01 | disposition home or self-care (01) ==
LOC: HO.XRAY 11:00
PROVIDERS: PCP Internal Medicine; Visit Provider Nurse Practitioner Family
DX: R05.9 Cough, unspecified (principal)
CPT/HCPCS: 71046

== ENCOUNTER 2023-11-20 10:43 | Outpatient (REF) | payer OTHER, SELFPAY ==
[2023-11-20 14:23] LABS: MANUAL DIFF FLAG NO
[2023-11-20 14:30] LABS: Basophils Percent Auto 0.4 % (0-2); Eosinophils Absolute Auto 0.1 X10*3/uL (0.0-0.4); Eosinophils Percent Auto 2.4 % (0-4); Hematocrit 42.4 % (37.0-47.0); Hemoglobin 13.9 g/dl (12.0-16.0); Imm Gran Abs Auto 0.02 X10*3/uL (0.00-0.03); Imm Gran Pct Auto 0.4 % (0.0-0.4); Lymphocytes Absolute Auto 1.4 X10*3/uL (1.2-4.9); Lymphocytes Percent Auto 24.9 % (20-40); Mean Corpuscular HGB Conc 32.8 g/dl (31.0-35.0); Mean Corpuscular Hemoglobin 28.5 pg (27.0-33.0); Mean Corpuscular Volume 87.1 fL (80.0-98.0); Mean Platelet Volume 9.6 fL (9.4-12.3); Monocytes Absolute Auto 0.3 X10*3/uL (0.1-1.2); Monocytes Percent Auto 5.8 % (2-11); Neutrophils Absolute Auto 3.7 x10*3/uL (2.0-8.3); Neutrophils Percent Auto 66.1 % (45-73); Platelet Count 321 X10*3/uL (160-400); Red Blood Count 4.87 X10*6/uL (4.20-5.50); Red Cell Distribution Width 13.6 % (11.0-16.0); White Blood Count 5.5 X10*3/uL (4.8-10.8)
[2023-11-20 14:51] LABS: Alanine Aminotransferase 18 U/L (0-31); Alkaline Phosphatase 123 U/L (39-117); Anion Gap 10 (12-20); Aspartate Amino Transferase 19 U/L (5-31); Bilirubin Total 0.4 mg/dL (0.0-1.0); Blood Urea Nitrogen 10 mg/dL (9-16); Calcium 9.7 mg/dL (8.4-10.2); Carbon Dioxide 27 mmol/L (22-29); Chloride 107 mmol/L (96-108); Estimated Glomerular Filt Rate > 60; Glucose Random 92 mg/dL (60-115); Potassium 4.3 mmol/L (3.3-5.1); Sodium 140 mmol/L (135-145); Total Protein 8.2 g/dL (6.5-8.0)
[2023-11-20 15:06] LABS: Appearance Urine Clear; Color Urine Yellow; Glucose Urine UA Negative (Negative); Leukocyte Esterase Urine Negative (Negative); Nitrite Urine Negative (Negative); PH 7.5 (5.0-9.0); Urine Blood Negative (Negative); Urine Ketones Negative (Negative); Urine Protein Negative (Neg-Trace)
[2023-11-20 15:08] LABS: TSH reflex Free T4 0.76 uIU/mL (0.32-4.0)
[2023-11-20 15:12] LABS: Bacteria Urine Trace (None Seen); Hyaline Casts Urine 0-2 /LPF (0-2); RBC Urine 0-2 /HPF (0-2); Squamous Epithelial Cell Urine 0-2 /HPF (0-2); WBC Urine 0-5 /HPF (0-5)
[2023-11-21 08:34] LABS: HIV Num 1 1.89 S/CO (0.00-0.99); ~HepC Num1 0.21 S/CO (0.00-0.79); ~Hepatitis C Antibody Nonreactive (Nonreactive)
[2023-11-21 10:58] LABS: HIV AB/AG Nonreactive (Nonreactive); HIV Num 2 0.05 S/CO; HIV Num 3 0.05 S/CO
== END 2023-11-20 10:44 | disposition home or self-care (01) ==
LOC: HO.CHCLDS 10:43
PROVIDERS: Visit Provider Internal Medicine
DX: I10 Essential (primary) hypertension (principal); F41.9 Anxiety disorder, unspecified; L65.9 Nonscarring hair loss, unspecified; Z11.3 Encounter for screening for infections with a predominantly sexual mode of transmission
CPT/HCPCS: 36415; 80053; 81001; 84443; 85025; 86803; 87389

== ENCOUNTER 2023-11-30 07:57 | Outpatient (REF) | payer OTHER, SELFPAY ==
--- NOTE | ~2023-11-30 | US_ITS ---
EXAMINATION: US ABDOMEN COMPLETE CLINICAL INFORMATION: Elevated alkaline phosphatase. COMPARISON: CT abdomen 07/26/2020. Ultrasound abdomen 08/18/2017 11/16/2016. TECHNIQUE: Real-time imaging of the abdominal viscera. FINDINGS: PANCREAS: The visualized pancreas appears unremarkable but the pancreatic tail is obscured by bowel gas. ABDOMINAL AORTA: The proximal, mid, and distal segments are normal in caliber. INFERIOR VENA CAVA: Visualized portions are normal. LIVER: The liver is normal in size. The liver contour is normal. There is diffuse increased liver parenchymal echogenicity, consistent with hepatic steatosis. No focal hepatic lesion. There is no intrahepatic biliary duct dilatation seen. GALLBLADDER: The gallbladder is physiologically distended without evidence of stones, sludge, polyps, wall thickening or pericholecystic fluid. Comet tail artifact is seen arising from the gallbladder wall consistent with adenomyomatosis. COMMON BILE DUCT: Normal in caliber measuring 0.2 cm in diameter. RIGHT KIDNEY: No hydronephrosis or renal calculi. The kidney measures 9.6 cm in maximum dimension. A benign right mid renal 1.0 cm Bosniak class I renal cyst is noted which requires no additional imaging or follow up. No solid renal masses are seen. LEFT KIDNEY: No hydronephrosis or renal calculi. The kidney measures 11.1 cm in maximum dimension. A benign left lower pole 3.0 cm Bosniak class I renal cyst is noted which requires no additional imaging or follow up. No solid renal masses are seen. SPLEEN: Normal. The spleen measures 10.4 cm in maximum dimension. FREE FLUID: None. US/US abdomen complete IMPRESSION: 1. Hepatic steatosis. 2. Adenomyomatosis of the gallbladder. Electronically signed by: Kirby Duque MD 12/09/2023 09:35 AM EDT
== END 2023-11-30 07:58 | disposition home or self-care (01) ==
LOC: HO.US 07:57
PROVIDERS: PCP Internal Medicine; Visit Provider Internal Medicine
DX: K76.0 Fatty (change of) liver, not elsewhere classified (principal); D13.5 Benign neoplasm of extrahepatic bile ducts; R74.8 Abnormal levels of other serum enzymes
CPT/HCPCS: 76700

== ENCOUNTER 2023-12-28 11:45 | Outpatient (REF) | payer OTHER, SELFPAY ==
[2023-12-28 15:42] LABS: Cholesterol 180 mg/dL (<200); HDL Cholesterol 49 mg/dL (>40); LDL Cholesterol Calculated 115 mg/dL (<100); Triglycerides 80 mg/dL (<150)
[2023-12-29 03:59] LABS: Hepatitis A Antibody IgM 0.15 Index (0-0.79); ~Hepatitis A Antibody IgM Nonreactive (Nonreactive)
[2023-12-29 04:12] LABS: HBS Num1 82.84 mIU/mL (0-7.99); ~Hepatitis B Surface Antibody REACTIVE (Nonreactive)
== END 2023-12-28 11:46 | disposition home or self-care (01) ==
LOC: HO.CHCLDS 11:45
PROVIDERS: Visit Provider Internal Medicine
DX: K76.0 Fatty (change of) liver, not elsewhere classified (principal)
CPT/HCPCS: 36415; 80061; 86706; 86709

== ENCOUNTER 2024-01-22 11:44 | Outpatient (REF) | payer OTHER, SELFPAY ==
--- NOTE | ~2024-01-22 | XR_ITS ---
EXAMINATION: XR CHEST CLINICAL INFORMATION: Cough. COMPARISON: Chest x-ray 05/09/2022 and multiple prior. TECHNIQUE: 2 views of the chest were obtained. FINDINGS: There is no gross pneumothorax. Heart size within normal limits. Dextroscoliosis of the thoracolumbar spine with multilevel degenerative changes. No significant pleural effusion. No new focal consolidation. XR/XR chest 2V IMPRESSION: No new focal consolidation to suggest pneumonia. This study was presented today January 23, 2024 for interpretation. Stat results provided at this time as requested by referring provider. Electronically signed by: Merna Vogel MD 01/23/2024 08:48 AM [facility]
== END 2024-01-22 11:45 | disposition home or self-care (01) ==
LOC: HO.XRAY 11:44
PROVIDERS: PCP Internal Medicine; Visit Provider Internal Medicine
DX: R05.1 Acute cough (principal)
CPT/HCPCS: 71046

== ENCOUNTER 2024-03-26 11:36 | Emergency (ER) | payer OTHER, SELFPAY ==
--- NOTE | ~2024-03-26 | XR_ITS ---
EXAMINATION: XR LUMBOSACRAL SPINE CLINICAL INFORMATION: right lower back pain COMPARISON: None available. TECHNIQUE: Three views of the lumbosacral spine. FINDINGS: Grade 1 anterolisthesis L3-4. Multilevel marginal osteophyte formation and endplate sclerosis and decreased intervertebral disc height involving the lower thoracic spine and lower lumbar spine. No acute cortical disruption. No lytic or blastic lesions. Metallic coils in a circumferential fashion overlapping the L5-S1 region likely in the umbilical area. XR/XR lumbar spine 2-3V IMPRESSION: Multilevel thoracolumbar spondylosis resulting in grade 1 anterolisthesis L3-4. Electronically signed by: Sd Stephen MD 03/26/2024 12:51 PM JOHN BOWIE
[2024-03-26 11:41] VITALS: BP 186/82; PULSE 71; RESP 20; TEMP 36.2; O2SAT 98; BMI 44.3
--- NOTE | 2024-03-26 11:45 | ED_ITS ---
HPI - Back Pain/Injury General Chief Complaint: Back Pain/Injury Stated Complaint: back sprain Time Seen by Provider: 03/26/24 16:57 Source: patient Mode of arrival: ambulatory Limitations: no limitations History of Present Illness ED Provider: MARY ARAIZA PA-C HPI Narrative: 59 year old female with pmhx significant for HTN presents to the ED today for evaluation of right lower back pain x5 days. She states the pain began after she lost her footing on her back porch and reached out to grab on to something, straining her back. Pain is worse with movement and does not radiate. No abdominal pain. She has been taking OTC pain meds without much improvement. Deneis blunr injuty or trauma. She ambulates with a cane at baseline. Denies IV drug use. Denies fever, chills, neck pain, saddle anesthesia, bowel or bladder incontinence or retention, numbness/tingling/weakness in the lower extremities, dysuria, hematuria. Related Data Home Medications ?Medication ?Instructions ?Recorded ?Confirmed bupropion HCl 300 mg 24 hr tablet, 300 mg PO QAM 04/27/22 extended release cholecalciferol (vitamin D3) 50 50 mcg PO DAILY 04/27/22 mcg (2,000 unit) capsule citalopram 20 mg tablet 20 mg PO QAM 04/27/22 divalproex 500 mg tablet,extended 1,000 mg PO 04/27/22 release 24 hr hydrochlorothiazide 25 mg tablet 25 mg PO QAM 04/27/22 losartan 50 mg tablet 50 mg PO DAILY 04/27/22 prazosin 5 mg capsule 5 mg PO BEDTIME 04/27/22 quetiapine 50 mg tablet 50 - 100 mg PO BEDTIME 04/27/22 spironolactone 50 mg tablet 50 mg PO QAM 04/27/22 Previous Rx's ?Medication ?Instructions ?Recorded azithromycin 250 mg tablet See Rx Instructions PO .COMPLEX #6 08/15/20 (Zithromax Z-Jagjit) tabs benzonatate 100 mg capsule 100 mg PO TID PRN cough #10 caps 08/15/20 (Tessalon Perles) prednisone 20 mg tablet 40 mg (2 x 20 mg) PO DAILY #10 tabs 08/15/20 Magic Mouthwash 5 ml PO TID #240 mL 04/27/22 Diphen/Lido/Antacid 1:1:1 240 mL suspension ciprofloxacin 0.3 %-dexamethasone 4 drp otic (ears) BID 7 days #7.5 04/27/22 0.1 % ear drops,suspension mL (Ciprodex) doxycycline hyclate 100 mg capsule 100 mg PO BID 10 days #20 caps 04/27/22 prednisone 20 mg tablet 40 mg (2 x 20 mg) PO DAILY 5 days 04/27/22 #10 tabs chlorhexidine gluconate 0.12 % 15 ml buccal BID #118 mL 04/28/22 mouthwash (Peridex) cyclobenzaprine 5 mg tablet 5 mg PO Q8H PRN muscle spasm #7 03/26/24 tabs lidocaine 5 % topical patch 1 patch topical DAILY #15 ea 03/26/24 (Lidoderm) Allergies Allergy/AdvReac Type Severity Reaction Status Date / Time fluticasone [From Flonase] Allergy Mild HIVES Verified 03/26/24 11:45 amoxicillin [AMOXICILLIN] Allergy Unknown HIVES, Verified 03/26/24 11:45 NAUSEA hydrocodone [Vicodin] Allergy Unknown Rash Verified 03/26/24 11:45 Flonase Allergy Unknown Hives Uncoded 04/27/22 12:58 From VICODIN Allergy Unknown HIVES Uncoded 11/06/19 17:41 Review of Systems 2 Review of Systems: Constitutional: No fever, chills, fatigue, night sweats, weight changes ENT/Mouth: No ear pain, hearing loss, nasal congestion, sinus pain, rhinorrhea, sore throat Eyes: No eye pain, swelling, redness, vision changes, discharge Cardio: No chest pain, palpitations, PORTER, orthopnea, peripheral edema Pulm: No SOB, cough, sputum, wheezing, dyspnea, hemoptysis GI: No nausea, vomiting, hematemesis, abdominal pain, diarrhea, constipation, hematochezia, melena : No irregular bleeding, dysuria, frequency, urgency, hesitancy, hematuria, flank pain, urinary flow changes, urinary incontinence or retention MSK: +back pain, No neck pain, joint pain, myalgias Skin: No lesions, rashes Neuro: No weakness, numbness, paresthesias, LOC, dizziness, headache All other systems reviewed and are negative. [facility] Past Medical History Attestation statement: The following information was validated with the patient. Source: old records reviewed and nursing notes reviewed Medical History De Quervain's tenosynovitis Arthralgia Right calf pain Right upper quadrant abdominal pain Vitamin D deficiency HTN (hypertension) Anxiety Social History Social History Do you have a plan to hurt others: No Plan Physical Exam 2 Vital Signs: Vital Signs: Last Vital Signs Temp 97.5 F 03/26/24 17:15 Pulse 71 03/26/24 17:15 Resp 20 03/26/24 17:15 BP 153/70 H 03/26/24 17:15 Pulse Ox 96 03/26/24 17:15 O2 Del Method Room Air 03/26/24 17:15 BMI result Body Mass Index 44.3 hypertensive, afebrile General: Well appearing, in no acute distress. Skin: Warm, dry, intact. No rashes or lesions. Head: Normocephalic, atraumatic. EENT: Hearing is intact b/l. Conjunctiva clear. PERRLA. EOM intact. Moist mucous membranes.? Cardiac: Chest wall symmetric. RRR. Lungs: Normal respiratory effort without accessory muscle use. CTA bilaterally. Abdomen: Soft, non-tender, non-distended. No rebound tenderness or guarding. Positive BS x4. no CVAT. Back: No midline spinous or paraspinal tenderness. No step off deformity. Ext: Upper and lower extremities atraumatic, without tenderness, deformity, swelling or erythema Neuro: AOx3. Normal speech. Strength 5/5 intact throughout. No saddle anesthesia. Sensation intact to light touch. NV intact distally. Ambulating with steady gait assisted by cane. Course Course Course Narrative: This is a Rapid Medical Examination (RME) performed by Zhen Araiza PA-C in triage. Full HPI, ROS, assessment and treatment plan per primary provider in the Main ED. 59 yo female here for eval of severe right lower back pain xdays. worse w/ movement, sitting too long. states this may have began after she stepped wrong and attempted to catch herself ?back strain. no red flag sx. Plan: labs, UA, lumbar xr Reevaluation(s) Reevaluation #1: 1700 -- CBC without leukocytosis or left shift. No anemia. H&H stable. Chemistry without acute electrolyte abnormality requiring intervention. No LADONNA. Liver function around baseline. Urine does not demonstrate blood or infection. Lumbar x-ray showing multilevel thoracolumbar spondylosis resulting in grade 1 anterolisthesis at L3-L4. Essentially degenerative changes within the spine. No acute findings. > I discussed all workup results with patient. her physical exam is consistent with lumbar muscle pain. She was treated with Flexeril, Tylenol and lidocaine patch in the ED. These have also been sent to her pharmacy. Patient has remained stable throughout ED visit today. Discussed worrisome signs and symptoms and when to return to the ED. All questions answered at this time. Patient is agreeable with disposition and stable for discharge. Medications Administered Discontinued Medications Generic Name Dose Route Start Last Admin Trade Name Freq PRN Reason Stop Dose Admin Acetaminophen 975 mg 03/26/24 17:00 03/26/24 17:06 Acetaminophen 325 Mg Tablet PO 03/26/24 17:01 975 mg ONCE ONE Administration Cyclobenzaprine HCl 10 mg 03/26/24 17:00 03/26/24 17:07 Cyclobenzaprine Hcl 10 Mg Tablet PO 03/26/24 17:01 10 mg ONCE ONE Administration Lidocaine 1 patch 03/26/24 17:00 03/26/24 17:07 Lidocaine 4 % Patch Adh..Patch TRANSDERMA 03/26/24 17:01 1 patch ONCE ONE Administration Protocol Medical Decision Making Medical Decision Making MDM Narrative: 59 year old female with pmhx significant for HTN presents to the ED today for evaluation of right lower back pain x5 days. Patient is hypertensive, likely secondary to discomfort. Vitals are otherwise WNL. She is nontoxic-appearing and in no acute distress. Ambulating with steady gait assisted by cane. On exam, there is no midline spinous tenderness or step-off deformity. There is reproducible tenderness over right lumbar musculature without palpable mass or fluctuance. No overlying skin changes/warmth. No CVAT bilaterally. Differential diagnosis includes MSK sprain/strain, muscle spasm, fracture, subluxation, disc herniation, sciatica, UTI, renal colic, nephrolithiasis. Unlikely cord compression, cauda equina, Guillain-[place], epidural abscess, pyelonephritis, hydronephrosis. Plan for basic labs, UA, imaging, pain control and re-evaluation. Differential Diagnosis Differential Diagnoses: The differential diagnosis associated with the presentation includes as above Admission/Observation Not indicated. Lab Data MDM Lab Attestation statement: I reviewed the patient's lab results. As above 03/26/24 12:36 03/26/24 12:36 Labs: Lab Results 03/26/24 Range/Units 12:36 WBC 7.5 (4.8-10.8) X10*3/uL RBC 4.79 (4.20-5.50) X10*6/uL Hgb 13.7 (12.0-16.0) g/dl Hct 40.9 (37.0-47.0) % MCV 85.4 (80.0-98.0) fL MCH 28.6 (27.0-33.0) pg MCHC 33.5 (31.0-35.0) g/dl RDW 13.2 (11.0-16.0) % Plt Count 332 (160-400) X10*3/uL MPV 8.9 L (9.4-12.3) fL Immature Gran % (Auto) 0.3 (0.0-0.4) % Neut % (Auto) 72.2 (45-73) % Lymph % (Auto) 21.3 (20-40) % [place] % (Auto) 5.0 (2-11) % Eos % (Auto) 0.9 (0-4) % Baso % (Auto) 0.3 (0-2) % Lymph # (Auto) 1.6 (1.2-4.9) X10*3/uL [place] # (Auto) 0.4 (0.1-1.2) X10*3/uL Eos # (Auto) 0.1 (0.0-0.4) X10*3/uL Baso # (Auto) 0.0 (0.0-0.2) X10*3/uL Abs Immat Gran (auto) 0.02 (0.00-0.03) X10*3/uL Absolute Neuts (auto) 5.4 (2.0-8.3) x10*3/uL Absolute Nucleated RBC 0.000 (0.0-0.012) X10*3/uL Nucleated RBC % (auto) 0.0 (0.0-0.2) /100WBC Sodium 138 (135-145) mmol/L Potassium 4.3 (3.3-5.1) mmol/L Chloride 106 (96-108) mmol/L Carbon Dioxide 27 (22-29) mmol/L Anion Gap 9 L (12-20) BUN 11 (9-16) mg/dL Creatinine 0.77 (0.5-1.4) mg/dL Estim Creat Clear Calc 101.3 Estimated GFR > 60 Random Glucose 98 (60-115) mg/dL Calcium 9.2 (8.4-10.2) mg/dL Total Bilirubin 0.2 (0.0-1.0) mg/dL AST 18 (5-31) U/L ALT 15 (0-31) U/L Alkaline Phosphatase 139 H (39-117) U/L Total Protein 8.7 H (6.5-8.0) g/dL Albumin 4.1 (3.5-5.0) g/dL Urine Color Yellow Urine Appearance Clear Urine pH 7.5 (5.0-9.0) Ur Specific [place] 1.010 (1.005-1.025) Urine Protein Negative (Neg-Trace) mg/dL Urine Glucose (UA) Negative (Negative) mg/dL Urine Ketones Negative (Negative) mg/dL Urine Blood Negative (Negative) Urine Nitrite Negative (Negative) Ur Leukocyte Esterase Negative (Negative) Independent Interpretation I performed an independent interpretation of an: Plain X-Ray Interpretation: Lumbar x-ray without acute fracture Radiology Impression Discussion of test interpretation with radiology: I have reviewed the radiologist's reading. Radiologist Impression: Procedure(s): XR lumbar spine 2-3V Accession Number(s): [id number] cc: Physician,Unknown ; Mary Araiza~ EXAMINATION: XR LUMBOSACRAL SPINE CLINICAL INFORMATION: right lower back pain COMPARISON: None available. TECHNIQUE: Three views of the lumbosacral spine. FINDINGS: Grade 1 anterolisthesis L3-4. Multilevel marginal osteophyte formation and endplate sclerosis and decreased intervertebral disc height involving the lower thoracic spine and lower lumbar spine. No acute cortical disruption. No lytic or blastic lesions. Metallic coils in a circumferential fashion overlapping the L5-S1 region likely in the umbilical area. XR/XR lumbar spine 2-3V IMPRESSION: Multilevel thoracolumbar spondylosis resulting in grade 1 anterolisthesis L3-4. Electronically signed by: Sd Stephen MD 03/26/2024 12:51 PM JOHN BOWIE External Record Review External record reviewed: Inpatient record Prescription Management I considered prescription management with: Other (Flexeril, lidocaine patch, Tylenol) Social Determinants Patient?s care significantly limited by Social Determinants of Health including: Other Social Determinant of Health Critical Care Time Critical Care Time Critical Care Time: No Discharge Plan Discharge Clinical Impression: Strain of lumbar region Patient Disposition: Home, Self-Care Instructions: Low Back Strain (ED), Lower Back Exercises (ED) Additional Instructions: Your blood work today is reassuring. Your urine is negative for infection/ blood. The xray of your lower back shows degenerative changes without acute fracture. I have suspicion that you strained your lumbar muscles. Avoid bending, lifting, or twisting. Use ice several times per day for 20 minutes at a time for the next 48 hours and then change to heat. I recommend you take 600mg ibuprofen every 6 hours or Tylenol 650mg every 6 hours as needed for pain. If needed, you can alternate these medications so that you take one medication every 3 hours. For example, at noon take ibuprofen, then at 3pm take Tylenol, then at 6pm take ibuprofen. Flexeril is a muscle relaxer. Take this at night as it makes you drowsy. Do not drive, drink alcohol, or operate machinery while taking it. Lidoderm patches are numbing patches. Apply to painful areas. Please schedule an appointment for follow-up with your primary care provider this week for further evaluation of your symptoms. Return to the Emergency Department if you experience worsening back pain, difficulty walking, fevers, numbness, tingling, incontinence, or any other concerning symptoms. In the case of an emergency call 911. Prescriptions: New cyclobenzaprine 5 mg tablet 5 mg PO Q8H PRN (Reason: muscle spasm) Qty: 7 0RF lidocaine [Lidoderm] 5 % adhesive patch,medicated 1 patch topical DAILY Qty: 15 0RF Rx Instructions: leave on most painful area for up to 12 hrs No Action azithromycin [Zithromax Z-Jagjit] 250 mg tablet See Rx Instructions .ROUTE .COMPLEX Qty: 6 0RF Rx Instructions: take 500 mg today (day 1), then 250 mg for 4 days (days 2-5) prednisone 20 mg tablet 40 mg PO DAILY Qty: 10 0RF benzonatate [Tessalon Perles] 100 mg capsule 100 mg PO TID PRN (Reason: cough) Qty: 10 0RF doxycycline hyclate 100 mg capsule 100 mg PO BID 10 Days Qty: 20 0RF prednisone 20 mg tablet 40 mg PO DAILY 5 Days Qty: 10 0RF ciprofloxacin-dexamethasone [Ciprodex] 0.3-0.1 % drops,suspension 4 drp otic (ears) BID 7 Days Qty: 7.5 0RF Magic Mouthwash Diphen/Lido/Antacid 1:1:1 240 mL suspension 5 ml PO TID Qty: 240 0RF Rx Instructions: Lidocaine Viscous 2 % 80mL; diphenhydramine 12.5 mg/5 mL 80mL; aluminum-mag hydrox-simeth [id number]/5mL 80mL Swish and spit, do not swallow chlorhexidine gluconate [Peridex] 0.12 % mouthwash 15 ml buccal BID Qty: 118 0RF cholecalciferol (vitamin D3) 50 mcg (2,000 unit) capsule 50 mcg PO DAILY bupropion HCl 300 mg tablet extended release 24 hr 300 mg PO QAM spironolactone 50 mg tablet 50 mg PO QAM hydrochlorothiazide 25 mg tablet 25 mg PO QAM divalproex 500 mg tablet extended release 24 hr 1,000 mg PO citalopram 20 mg tablet 20 mg PO QAM prazosin 5 mg capsule 5 mg PO BEDTIME losartan 50 mg tablet 50 mg PO DAILY quetiapine 50 mg tablet 50 - 100 mg PO BEDTIME Interventions: ED Discharge Assessment Last Done: 03/26/24 17:15 Discharge Date/Time: 03/26/24 17:21 Print Language: Citizen Of [place]
[2024-03-26 12:50] LABS: MANUAL DIFF FLAG NO
[2024-03-26 12:52] LABS: Basophils Percent Auto 0.3 % (0-2); Eosinophils Absolute Auto 0.1 X10*3/uL (0.0-0.4); Eosinophils Percent Auto 0.9 % (0-4); Hematocrit 40.9 % (37.0-47.0); Hemoglobin 13.7 g/dl (12.0-16.0); Imm Gran Abs Auto 0.02 X10*3/uL (0.00-0.03); Imm Gran Pct Auto 0.3 % (0.0-0.4); Lymphocytes Absolute Auto 1.6 X10*3/uL (1.2-4.9); Lymphocytes Percent Auto 21.3 % (20-40); Mean Corpuscular HGB Conc 33.5 g/dl (31.0-35.0); Mean Corpuscular Hemoglobin 28.6 pg (27.0-33.0); Mean Corpuscular Volume 85.4 fL (80.0-98.0); Mean Platelet Volume 8.9 fL (9.4-12.3); Monocytes Absolute Auto 0.4 X10*3/uL (0.1-1.2); Neutrophils Absolute Auto 5.4 x10*3/uL (2.0-8.3); Neutrophils Percent Auto 72.2 % (45-73); Platelet Count 332 X10*3/uL (160-400); Red Blood Count 4.79 X10*6/uL (4.20-5.50); Red Cell Distribution Width 13.2 % (11.0-16.0); White Blood Count 7.5 X10*3/uL (4.8-10.8)
[2024-03-26 12:53] LABS: Appearance Urine Clear; Color Urine Yellow; Glucose Urine UA Negative (Negative); Leukocyte Esterase Urine Negative (Negative); Nitrite Urine Negative (Negative); PH 7.5 (5.0-9.0); Urine Blood Negative (Negative); Urine Ketones Negative (Negative); Urine Protein Negative (Neg-Trace)
[2024-03-26 13:09] LABS: Alanine Aminotransferase 15 U/L (0-31); Albumin Level 4.1 g/dL (3.5-5.0); Alkaline Phosphatase 139 U/L (39-117); Anion Gap 9 (12-20); Aspartate Amino Transferase 18 U/L (5-31); Bilirubin Total 0.2 mg/dL (0.0-1.0); Blood Urea Nitrogen 11 mg/dL (9-16); Calcium 9.2 mg/dL (8.4-10.2); Carbon Dioxide 27 mmol/L (22-29); Chloride 106 mmol/L (96-108); Creatinine Clr Calc Pharmacy 101.3; Estimated Glomerular Filt Rate > 60; Glucose Random 98 mg/dL (60-115); Potassium 4.3 mmol/L (3.3-5.1); Sodium 138 mmol/L (135-145); Total Protein 8.7 g/dL (6.5-8.0)
[2024-03-26 16:58] VITALS: BP 153/70; PULSE 71; RESP 20; TEMP 36.4; O2SAT 96
[2024-03-26] MEDS: Acetaminophen 325 MG TABLET 975 MG PO (17:06)
[2024-03-26] MEDS: Cyclobenzaprine HCl 10 MG TABLET PO (17:07)
[2024-03-26] MEDS: Lidocaine 4 % Patch ADH..PATCH 1 PATCH TRANSDERMA (17:07)
[2024-03-26 17:15] VITALS: BP 153/70; PULSE 71; RESP 20; TEMP 36.4; O2SAT 96
--- OUTSIDE RECORDS SUMMARY | 2024-03-26 17:19 | XMS_ITS | Clinical Summary ---
Author Organization [facility], Address [address] [place] [address] [place] [address] Phone Care Team Providers Care Aquatic Performer Name Role Phone Fred Lowery MD Primary Care Provider Allergies Active Allergy Reactions Criticality Noted Date Comments Acetaminophen 01/01/2020 Amoxicillin Nausea 03/25/2019 Fluticasone Other (see comments),Hives 03/25/19 20 Hydrocodone Hives 07/27/2021 Hydrocodone-Acetaminophen Other (see comments) 03/25/2019 Penicillins Other (see comments),Hives 03/25/19 20 Medications citalopram (CeleXA) 20 MG tablet Take 20 mg by mouth 1 (one) time each day Active divalproex (DEPAKOTE) 500 MG 24 hr tablet Take 1,000 mg by mouth twice a day Active lidocaine (LIDODERM) 5 % patch Apply 1 patch topically 1 (one) time each day Remove & discard patch within 12 hours or as directed by MD. Active prazosin (MINIPRESS) 2 MG capsule Take 5 mg by mouth every night Active OXcarbazepine (TRILEPTAL) 150 MG tablet Take by mouth 2 (two) times a day Active diclofenac (VOLTAREN) 1 % gel Apply 1 application topically 4 times a day Active LORazepam (ATIVAN) 0.5 MG tablet Take 0.5 mg by mouth 2 (two) times a day if needed 0 Active cholecalciferol (VITAMIN D-3) 50 MCG (1999) tablet Take 2,000 Units by mouth daily 0 Active buPROPion XL (WELLBUTRIN XL) 300 MG 24 hr tablet Take 300 mg by mouth every morning 0 Active hydrOXYzine (ATARAX) 50 MG tablet Take 50 mg by mouth in the morning and 50 mg at noon and 50 mg in the evening. 0 Active acetaminophen (TYLENOL) 500 MG tablet Take 1,000 mg by mouth 1 (one) time each day if needed for mild pain Active cyclobenzaprine (FLEXERIL) 10 MG tablet Take 10 mg by mouth 2 (two) times a day if needed for muscle spasms Active loratadine (CLARITIN) 10 MG tablet Take 10 mg by mouth 1 (one) time each day Active propranolol LA (INDERAL LA) 160 MG 24 hr capsule Take 1 capsule (160 mg total) by mouth 1 (one) time each day Do not crush, chew, or split. 30 capsule 11 4 Active Semaglutide,0.2 5 or 0.5MG/DOS, 2 MG/1.5ML solution pen-injector Inject 0.25 mg under the skin every 7 (seven) days 1.5 mL 1 4 08/16/19 25 Active NIFEdipine XL (PROCARDIA XL) 60 MG 24 hr tablet Take 1 tablet (60 mg total) by mouth in the morning and 1 tablet (60 mg total) before bedtime. Do not crush, chew, or split.. 60 tablet 11 4 Active losartan (COZAAR) 50 MG tablet Take 1 tablet (50 mg total) by mouth every morning 90 tablet 3 4 Active spironolactone (ALDACTONE) 50 MG tablet Take 1 tablet (50 mg total) by mouth every morning 60 tablet 3 4 Active hydroCHLOROthia zide 25 MG tablet Take 1 tablet (25 mg total) by mouth every morning 30 tablet 11 5 Active Active Problems Problem Noted Date Diagnosed Date Essential hypertension Cyst of kidney Resolved Problems Problem Noted Date Diagnosed Date Resolved Date Dysuria 03/27/2019 12/14/2020 Vitamin D deficiency 021 Encounters Date Type Department Care Team Description 2024 Refill [facility] [address] [place] [address] Suma Torrez [place] from Last 3 Months Immunizations Name Administration Dates Next Due Hepatitis B 08/21/2006,03/21/2006,02/16/2006 Influenza TIV (IM) 11/09/2009 Moderna SARS-COV-2 08/03/2020,07/06/2020 Family History Medical History Relation Comments Diabetes Mother Heart disease Mother Hypertension Mother Kidney disease Mother Relation Status Comments Mother Social History Tobacco Use Types Packs/Day Years Used Date Smoking Tobacco: Former Cigarettes Comments Unknown Sex and Gender Information Value Date Recorded Sex Assigned at Not on file Legal Sex Female 4:31 PM EST Gender Identity Not on file Sexual Orientation Not on file Last Filed Vital Signs Vital Sign Reading Time Taken Comments Blood Pressure 135/99 03/09/2022 2:16 PM EST Pulse 79 03/09/2022 2:16 PM EST Temperature - - Respiratory Rate - - Oxygen Saturation - - Inhaled Oxygen Concentration - - Weight 119 kg (263 lb) 12/14/2020 3:05 PM EDT Height 162.6 cm (5' 4 ) 03/27/2019 8:43 AM EST Body Mass Index 45.14 03/27/2019 8:43 AM EST Plan of Treatment Upcoming Encounters Date Type Department Care Team (Late st Contact Info) Description 04/08/2024 3:20 PM EST Office Visit [facility], [address] [place] [address] Tucker Jensen MD [address] [place] [id number] Health Maintenance Due Date Last Done Comments Breast Cancer Screening 1965 Pneumococcal Vaccine: Pediat rics (0 to 5 Years) and At-Risk Patients (6 to 64 Years) (1 of 2 - PCV) 1973 Hepatitis B Vaccine (1 of 3 - 19+ 3-dose series) 1986 08/21/2006, 03/21/2006, 02/16/2006 Colorectal Cancer Screening: Annual FOBT 02/26/2016 Colorectal Cancer Screening: Colonoscopy 02/26/2016 Colorectal Cancer Screening: Sigmoidoscopy 02/26/2016 Influenza Vaccine (#1) 2023 11/09/2009 Insurance [employer] DUAL SNP ([id number]) [place] [id number] Care Teams Aquatic Performer Relationship Specialty Start Date End Date Fred Lowery MD [address], [place] [id number] PCP - General Internal Medicine 10/16/23
--- OUTSIDE RECORDS SUMMARY | 2024-03-26 17:19 | XMS_ITS | Encounter Summary ---
Author Organization [employer] Address [address] [place] [address] Care Team Providers Care Trimmer Buffing Wheel Name Role Phone Fred Lowery MD Primary Care Provider [phone] Reason for Visit * Reason Onset Date Comments Med Refill 02/05/2024 Encounter Details Date Type Department Care Team ([facility] st Contact Info) Description 02/05/2024 Refill [facility] [address] [place] [address] Fred Lowery MD [address] [place] [address] Social History Tobacco Use Types Packs/Day Years Used Date Smoking Tobacco: Never Passive Smoke Exposure: Never Smokeless Tobacco: Never Depression Answer Date Recorded Patient Health Questionnaire-9 Score 14 11/20/2023 Patient Health Questionnaire-9 Score 14 11/20/2023 Last PHQ-9: Questionnaire Data Not on file 1 Housing Stability Answer Date Recorded What is your housing situati on today? I have housing 06/20/[address] you li ve. Do you have problems with any of the following? Mold;No or not working smoke detectors 06/20/2023 Food Insecurity Answer Date Recorded Within the past 12 months, y ou worried that your food would run out before you got money to buy more: Never True 06/20/2023 Within the past 12 months,th e food you bought just didn't last and you didn't have enough money to get more: Never True 02/2023 Transportation Answer Date Recorded In the past 12 months, has l ack of transportation kept you from medical appts, meetings, work or from getting things needed for daily living? No 06/20/2023 Utilities Answer Date Recorded In the past 12 months, has t he electric, gas, oil or water company threatened to shut off services in your home? No 06/20/2023 Depression Answer Date Recorded Patient Health Questionnaire-2 Score 2 11/20/2023 Comments Unknown Sex and Gender Information Value Date Recorded Sex Assigned at Female 12/19/2021 10:14 AM EDT Legal Sex Female 10:14 AM EDT Gender Identity Female 12/19/2021 10:14 AM EDT Sexual Orientation Straight 12/19/2021 10 :14 AM EDT documented as of this encounter Plan of Treatment Not on file documented as of this encounter Visit Diagnoses Not on filedocumented in this encounter Additional Health Concerns Assessment Noted Time PHQ-9 Depression Total Score: 14 024 9:41 AM EDT documented as of this encounter Care Teams Trimmer Buffing Wheel Relationship Specialty Start Date End Date Fred Lowery MD [address] [place] [id number] PCP - General Internal Medicine 03/20/13 documented as of this encounter
--- OUTSIDE RECORDS SUMMARY | 2024-03-26 17:19 | XMS_ITS | Encounter Summary ---
Author Organization [employer] Address [address] [facility] 7t [place] [address] Care Team Providers Care Solid Waste Facility Supervisor Name Role Phone Fred Lowery MD Primary Care Provider [phone]- [phone] Reason for Visit * Reason Onset Date Comments Medication Question 11/29/2023 Encounter Details Date Type Department Care Team ([facility] st Contact Info) Description 11/29/2023 Telephone [facility] [address] [place] [address] Fred Lowery MD [address] [place], [place] [phone] Medication Question Social History Tobacco Use Types Packs/Day Years [...] AM EDT documented as of this encounter Miscellaneous Notes * Telephone Encounter - Fred Lowery MD - 11/29/2023 4:51 PM EDT Ms Ambika Sweeney was started on 0.25 mg once a week. Here is the recommended scheduled : Week 1 through week 4 : 0.25 mg once weekly. Week 5 through week 8: 0.5 mg once weekly. Week 9 through week 12: 1 mg once weekly. Week 13 through week 16: 1.7 mg once weekly. Week 17 and thereafter (maintenance dosage): 2.4 mg once weekly (preferred regimen); if not tolerated, may use an alternative maintenance dosage of 1.7 mg once weekly. Ms Ambika Sweeney should be on 0.5 mg once a week for the next 4 weeks. * Telephone Encounter - Yumiko Brambila LPN - 11/29/2023 4:01 PM EDT Please review and advise. * Telephone Encounter - Arvind Polk - 11/29/2023 3:54 PM EDT Tc from pt requesting status on increase for ozempic, pt stated it should have been increased to 2mg however per pharmacy pt was on 0.25 should be increase to 1 mg. Please contact for clarification at [phone] documented in this encounter Plan of Treatment Not on file documented as of this encounter Visit Diagnoses Not on filedocumented in this encounter Additional Health Concerns Assessment Noted Time PHQ-9 Depression Total Score: 14 024 9:41 AM EDT documented as of this encounter Care Teams Solid Waste Facility Supervisor Relationship Specialty Start Date End Date Fred Lowery MD [address] [place] [address] PCP - General Internal Medicine 03/20/13 documented as of this encounter
--- OUTSIDE RECORDS SUMMARY | 2024-03-26 17:19 | XMS_ITS | Encounter Summary ---
Author Organization [facility] Address [address] [place] [address] Phone Care Team Providers Care Shot Polisher And Inspector Name Role Phone Fred Lowery MD Primary Care Provider [phone]- [phone] Reason for Visit * Reason Onset Date Comments Med Refill 2024 Encounter Details Date Type Department Care Team (Late st Contact Info) Description 2024 Refill [facility] [address] [place] [address] [place] [address] [place] [phone] Social History Tobacco Use Types Packs/Day Years Used Date Smoking Tobacco: Former Cigarettes Comments Unknown Sex and Gender Information Value Date Recorded Sex Assigned at Not on file Legal Sex Female 4:31 PM EST Gender Identity Not on file Sexual Orientation Not on file documented as of this encounter Plan of Treatment Upcoming Encounters Date Type Department Care Team (Late st Contact Info) Description 04/08/2024 3:20 PM EST Office Visit [facility] [address] [place] [address] Tucker Jensen MD [address] [place] [address] [place] [address] documented as of this encounter Visit Diagnoses Not on filedocumented in this encounter Care Teams Shot Polisher And Inspector Relationship Specialty Start Date End Date Fred Lowery MD [address] [place] [address] PCP - General Internal Medicine 10/16/23 documented as of this encounter
--- OUTSIDE RECORDS SUMMARY | 2024-03-26 17:19 | XMS_ITS | Encounter Summary ---
Author Organization [employer] Address [address] [place] [address] [address] [place] [address] Care Team Providers Care Home Care Liaison Name Role Phone Fred Lowery MD Primary Care Provider [phone]- [phone] Reason for Visit * Reason Onset Date Comments Referral 08/30/2022 Encounter Details Date Type Department Care Team ([facility] st Contact Info) Description 08/30/2022 Telephone [facility] MED & PEDS [address] [place] [address] Fred Lowery MD [address] [place] [address] Referral Social History Tobacco Use Types Packs/Day Years Used Date Smoking Tobacco: Never Passive Smoke Exposure: Never Smokeless Tobacco: Never Comments Unknown Sex and Gender Information Value Date Recorded Sex Assigned at Female 12/19/2021 10:14 AM EDT Legal Sex Female 10:14 AM EDT Gender Identity Female 12/19/2021 10:14 AM EDT Sexual Orientation Straight 12/19/2021 10 :14 AM EDT documented as of this encounter Miscellaneous Notes * Telephone Encounter - Jacinda Clements - 08/30/2022 11:35 AM EDT Tc from pt requesting a referral to [facility] neurology on with Dr. Aburto. States the audiology evaluation advised her that her left ear is declining and not symmetrical to the right. They recommended her to go see a neurologist. documented in this encounter Plan of Treatment Not on file documented as of this encounter Visit Diagnoses Diagnosis Decreased hearing, left- Primary documented in this encounter Care Teams Home Care Liaison Relationship Specialty Start Date End Date Fred Lowery MD [address] [place] [address] PCP - General Internal Medicine 03/20/13 documented as of this encounter
--- OUTSIDE RECORDS SUMMARY | 2024-03-26 17:19 | XMS_ITS | Encounter Summary ---
Author Organization [employer] Address [address] [facility] 7t [place] [address] Care Team Providers Care Aircraft Inspector Name Role Phone Fred Lowery MD Primary Care Provider [phone]- [phone] Reason for Visit * Reason Onset Date Comments recall appt 03/07/2024 Encounter Details Date Type Department Care Team ([facility] st Contact Info) Description 03/07/2024 Telephone [facility] CHC MED & PEDS [address] [place], [place] [phone] Fred Lowery MD [address] [place] [address] recall appt Social History Tobacco Use Types Packs/Day Years [...] encounter Miscellaneous Notes * Telephone Encounter - Edyta Clemente MA - 03/07/2024 11:05 AM EST Called pt to schedule apptwith madeleine f/u documented in this encounter Plan of Treatment Not on file documented as of this encounter Visit Diagnoses Not on filedocumented in this encounter Additional Health Concerns Assessment Noted Time PHQ-9 Depression Total Score: 14 024 9:41 AM EDT documented as of this encounter Care Teams Aircraft Inspector Relationship Specialty Start Date End Date Fred Lowery MD [address] [place] [address] PCP - General Internal Medicine 03/20/13 documented as of this encounter
--- OUTSIDE RECORDS SUMMARY | 2024-03-26 17:19 | XMS_ITS | Encounter Summary ---
Author Organization [employer] Address [address] [facility] 7t [place] [address] Care Team Providers Care Sales Professional Name Role Phone Fred Lowery MD Primary Care Provider [phone] Encounter Details Date Type Department Care Team ([facility] st Contact Info) Description 02/06/2024 Orders Only [facility] MED & PEDS [address] [place], [place] [phone] Fred Lowery MD [address] [place], [place] [phone] Severe obesity (CMS/HCC) (Primary Dx) Social History Tobacco Use Types Packs/Day Years [...] as of this encounter Visit Diagnoses Diagnosis Severe obesity (CMS/HCC)- Primary Morbid obesity documented in this encounter Additional Health Concerns Assessment Noted Time PHQ-9 Depression Total Score: 14 024 9:41 AM EDT documented as of this encounter Care Teams Sales Professional Relationship Specialty Start Date End Date Fred Lowery MD [address] [place] [address] PCP - General Internal Medicine 03/20/13 documented as of this encounter
--- OUTSIDE RECORDS SUMMARY | 2024-03-26 17:19 | XMS_ITS | Encounter Summary ---
Author Organization [facility] Address [address] [place] [address] Phone Care Team Providers Care Video Tape Editor Name Role Phone Fred Lowery MD Primary Care Provider [phone]- [phone] Encounter Details Date Type Department Care Team (Late st Contact Info) Description 01/03/2022 Documentation Only [facility] [address] [place] [phone] Yumiko Daniels PA Social History Tobacco Use Types Packs/Day Years [...] Visit [facility] [address] [place] [address] Tucker Jensen MD [address] [place] [address] [place] [phone] documented as of this encounter Visit Diagnoses Not on filedocumented in this encounter Care Teams Video Tape Editor Relationship Specialty Start Date End Date Fred Lowery MD [address] [place] [address] PCP - General Internal Medicine 10/16/23 documented as of this encounter
--- OUTSIDE RECORDS SUMMARY | 2024-03-26 17:19 | XMS_ITS | Encounter Summary ---
Author Organization [facility] Address [address] [place] [address] Phone Care Team Providers Care Human Services Worker Name Role Phone Fred Lowery MD Primary Care Provider [phone]- [phone] Encounter Details Date Type Department Care Team (Late st Contact Info) Description 07/21/2021 Documentation Only [facility] [address] [place] [phone] Yumiko Daniels PA Social History Tobacco Use [...] Visit [facility] [address] [place] [address] Tucker Jensen MD [address] [place] [address] [place] [phone] documented as of this encounter Visit Diagnoses Not on filedocumented in this encounter Care Teams Human Services Worker Relationship Specialty Start Date End Date Fred Lowery MD [address] [place] [address] PCP - General Internal Medicine 10/16/23 documented as of this encounter
--- OUTSIDE RECORDS SUMMARY | 2024-03-26 17:19 | XMS_ITS | Encounter Summary ---
Author Organization [facility] Address [address] [place] [address] Care Team Providers Care Plumber'S Helper Name Role Phone Fred Lowery MD Primary Care Provider [phone] Reason for Referral * Consultation (Routine) - Canceled Specialty Diagnoses / Procedures Referred By Alonso burdick Referred To Contact General Surgery Diagnoses Abdominal wall pain Fred Lowery MD [address] [place] [address] Phone: tel: fax: Referral ID Status Reason Start Date Expiration Date Visits Requested Visits Authorized [id number] Canceled Specialty Services Required 11/22/2023 11/21/2024 1 1 * Imaging (Routine) - Closed Specialty Diagnoses / Procedures Referred By Alonso burdick Referred To Contact Radiology Diagnoses Elevated alkaline phosphatase level Procedures US Abdomen Complete Fred Lowery MD [address] [place] [address] Phone: tel: fax: [address] Phone: tel: fax: Referral ID Status Reason Start Date Expiration Date Visits Re quested Visits Authorized [id number] Closed 11/21/2023 11/20/2024 1 1 Encounter Details Date Type Department Care Team (Late st Contact Info) Description 11/21/2023 Orders Only [facility] MED & [facility]S [address] [facility] [place] [address] Fred Lowery MD [address] [facility] [place] [address] Elevated alkaline phosphatase level (Primary Dx); Abdominal wall pain Social History Tobacco Use Types Packs/Day Years [...] as of this encounter Miscellaneous Notes * Result Encounter Note - Fred Lowery MD - 11/21/2023 8:39 AM EDT Please call. The US was reviewed and shows fatty liver w/ adenomyomatosis of the gall bladder ( abnormality of the wall ) which is benign in general. Please advise pt to continue w/ her efforts to loose weight. We will repeat the US in 6 to 8 months. documented in this encounter Plan of Treatment Not on file documented as of this encounter Procedures Procedure Name Priority Date/Time Associated Diagnosis Comments AMB REFERRAL TO GENERAL SURGERY Routine 01/24/2024 Abdominal wall pain US ABDOMEN COMPLETE Routine 11/30/2023 8 :12 AM EDT Elevated alkaline phosphatase level documented in this encounter Results * Referral to General Surgery (01/24/2024) us Fred Lowery MD OUTPATIENT REFERRAL ORDERAB LES Final Result * US Abdomen Complete (11/30/2023 8:12 AM EDT) Anatomical Region Laterality Modality Abdomen Ultrasound 11/30/2023 8:12 AM EDT Narrative 12/09/2023 9:38 AM EDT ? [facility] ?[address] ?[place] [address] ? Ultrasound Report ? Signed ? Patient: Ambika Sweeney ?MR#: [id number] ? : 1965 ?Acct:[id number] ? Age/Sex: 58 / F ?ADM Date: 11/30/23 ? Loc: HO.US ? Attending Dr: Fred Lowery MD ? Ordering Physician: Fred Lowery MD ?? Date of Service: 11/30/23 ?? Procedure(s): US abdomen complete ?? Accession Number(s): [id number] ? cc: Fred Loweyr MD ? EXAMINATION: ?? US ABDOMEN COMPLETE ? CLINICAL INFORMATION: ?? Elevated alkaline phosphatase. ? COMPARISON: ?? CT abdomen 07/26/2020. Ultrasound abdomen 08/18/2017 11/16/2016. ? TECHNIQUE: ?? Real-time imaging of the abdominal viscera. ? FINDINGS: ? PANCREAS: The visualized pancreas appears unremarkable but the ?? pancreatic tail is obscured by bowel gas. ? ABDOMINAL AORTA: The proximal, mid, and distal segments are normal in ?? caliber. ? INFERIOR VENA CAVA: Visualized portions are normal. ? LIVER: The liver is normal in size. The liver contour is normal. There ?? is diffuse increased liver parenchymal echogenicity, consistent with ?? hepatic steatosis. ??No focal hepatic lesion. There is no intrahepatic ?? biliary duct dilatation seen. ? GALLBLADDER: The gallbladder is physiologically distended without ?? evidence of stones, sludge, polyps, wall thickening or pericholecystic ?? fluid. Comet tail artifact is seen arising from the gallbladder wall ?? consistent with adenomyomatosis. ? COMMON BILE DUCT: Normal in caliber measuring 0.2 cm in diameter. ? RIGHT KIDNEY: No hydronephrosis or renal calculi. The kidney measures ?? 9.6 cm in maximum dimension. A benign right mid renal 1.0 cm Bosniak ?? class I renal cyst is noted which requires no additional imaging or ?? follow up. No solid renal masses are seen. ? LEFT KIDNEY: No hydronephrosis or renal calculi. The kidney measures ?? 11.1 cm in maximum dimension. A benign left lower pole 3.0 cm Bosniak ?? class I renal cyst is noted which requires no additional imaging or ?? follow up. No solid renal masses are seen. ? SPLEEN: Normal. The spleen measures 10.4 cm in maximum dimension. ? FREE FLUID: None. ? US/US abdomen complete ?? IMPRESSION: ?? 1. ??Hepatic steatosis. ?? 2. ??Adenomyomatosis of the gallbladder. ? Electronically signed by: ??Kirby Duque MD ??12/09/2023 09:35 AM EDT ?? RP ? Dictated By: ?Kirby Duque MD ? Signed By: ?<Electronically signed by Kirby Duque MD in OV> ? 12/09/23 0935 ? DD/ 0812 ? TD/TT: 11/30/23 0859 ? Central Sterilization Technician: SS ? Procedure Note Eliane, Evan - 12/09/[address] [address] Ultrasound Report Signed Patient: Nicci Sweeney#: [id number] : 1965Acct:[id number] Age/Sex: 58 / FADM Date: 11/30/23 Loc: .US Attending Dr: Fred Lowery MD Ordering Physician: Fred Lowery MD Date of Service: 11/30/23 Procedure(s): US abdomen complete Accession Number(s): [id number] cc: Fred Lowery MD EXAMINATION: US ABDOMEN COMPLETE CLINICAL INFORMATION: Elevated alkaline phosphatase. COMPARISON: CT abdomen 07/26/2020. Ultrasound abdomen 08/18/2017 11/16/2016. TECHNIQUE: Real-time imaging of the abdominal viscera. FINDINGS: PANCREAS: The visualized pancreas appears unremarkable but the pancreatic tail is obscured by bowel gas. ABDOMINAL AORTA: The proximal, mid, and distal segments are normal in caliber. INFERIOR VENA CAVA: Visualized portions are normal. LIVER: The liver is normal in size. The liver contour is normal. There is diffuse increased liver parenchymal echogenicity, consistent with hepatic steatosis. No focal hepatic lesion. There is no intrahepatic biliary duct dilatation seen. GALLBLADDER: The gallbladder is physiologically distended without evidence of stones, sludge, polyps, wall thickening or pericholecystic fluid. Comet tail artifact is seen arising from the gallbladder wall consistent with adenomyomatosis. COMMON BILE DUCT: Normal in caliber measuring 0.2 cm in diameter. RIGHT KIDNEY: No hydronephrosis or renal calculi. The kidney measures 9.6 cm in maximum dimension. A benign right mid renal 1.0 cm Bosniak class I renal cyst is noted which requires no additional imaging or follow up. No solid renal masses are seen. LEFT KIDNEY: No hydronephrosis or renal calculi. The kidney measures 11.1 cm in maximum dimension. A benign left lower pole 3.0 cm Bosniak class I renal cyst is noted which requires no additional imaging or follow up. No solid renal masses are seen. SPLEEN: Normal. The spleen measures 10.4 cm in maximum dimension. FREE FLUID: None. US/US abdomen complete IMPRESSION: 1. Hepatic steatosis. 2. Adenomyomatosis of the gallbladder. Electronically signed by: Kirby Duque MD 12/09/2023 09:35 AM EDT RP Dictated By: Kirby Duque MD Signed By: <Electronically signed by Kirby Duque MD in OV> 12/09/2335 DD/ 1 TD/TT: 11/30/2359 Central Sterilization Technician: SS us Fred Lowery MD IMG US PROCEDURES Final Res ult documented in this encounter Visit Diagnoses Diagnosis Elevated alkaline phosphatase level- Primary Abdominal wall pain Abdominal pain, unspecified site documented in this encounter Additional Health Concerns Assessment Noted Time PHQ-9 Depression Total Score: 14 024 9:41 AM EDT documented as of this encounter Care Teams Plumber'S Helper Relationship Specialty Start Date End Date Fred Lowery MD [address] [place] [address] PCP - General Internal Medicine 03/20/13 documented as of this encounter
--- OUTSIDE RECORDS SUMMARY | 2024-03-26 17:20 | XMS_ITS | Encounter Summary ---
Author Organization [employer] Address [address] [facility] 7t [place] [address] Care Team Providers Care Casing Blower Name Role Phone Fred Lowery MD Primary Care Provider [phone]- [phone] Reason for Visit * Reason Onset Date Comments Results 01/02/2024 Encounter Details Date Type Department Care Team ([facility] st Contact Info) Description 01/02/2024 Telephone [facility] MEDICINE [address] [place] [address] Fred Lowery MD [address] [place], [place] [phone] Results Social History Tobacco Use Types Packs/Day Years [...] encounter Miscellaneous Notes * Telephone Encounter - Alvaro Bobby RN - 01/02/2024 4:41 PM EST Pt report that the vaishali needs a PA. * Telephone Encounter - Alvaro Bobby RN - 01/02/2024 4:[address] Lowery: Please call. Labs reviewed: 1) Mild elevation of pt's LDL. The 10-year ASCVD risk score (Lauren DK, et al., 2019) is: 4.5% Values used to calculate the score: Age: 58 years Sex: Female Is Non- : No Diabetic: No Tobacco smoker: No Systolic Blood Pressure: 158 mmHg Is BP treated: Yes HDL Cholesterol: 49 mg/dL Total Cholesterol: 180 mg/dL Ms Ambika Sweeney needs to continue w/ a low chol diet. 2) Hep B surface antibody reactive meaning that pt is protected. TC placed, spoke with pt, inform of message above from PCP. Pt verbalized understanding and agreed to plan. * Telephone Encounter - Alvaro Bobby RN - 01/02/2024 11:00 AM EST Patient requesting lab results. Please review lab results from 12/28/23 and advise nurse's of result/plan. Thanks. * Telephone Encounter - Arvind Polk - 01/02/2024 9:56 AM EST Tc from pt requesting lab results. Please contact at [phone] documented in this encounter Plan of Treatment Not on file documented as of this encounter Visit Diagnoses Not on filedocumented in this encounter Additional Health Concerns Assessment Noted Time PHQ-9 Depression Total Score: 14 024 9:41 AM EDT documented as of this encounter Care Teams Casing Blower Relationship Specialty Start Date End Date Fred Lowery MD [address] [place] [address] PCP - General Internal Medicine 03/20/13 documented as of this encounter
--- OUTSIDE RECORDS SUMMARY | 2024-03-26 17:20 | XMS_ITS | Encounter Summary ---
Author Organization [employer] Address [address] [facility] 7[address] [place] [address] Care Team Providers Care Information Systems Professor Name Role Phone Fred Lowery MD Primary Care Provider [phone] Encounter Details Date Type Department Care Team ([facility] st Contact Info) Description 11/14/2022 Orders Only [facility] MED & PEDS [address] [place], [place] [phone] Fred Lowery MD [address] [place], [place] [phone] Encounter for screening colonoscopy Social History Tobacco Use Types Packs/Day Years [...] Procedure Name Priority Date/Time Associated Diagnosis Comments LAB COLOGUARD?? COLON CANCER SCREEN Routine 02/09/2023 8:34 AM EST Encounter for screening colonoscopy documented in this encounter Results * Cologuard?? colon cancer screening (02/09/2023 8:34 AM EST) Cologuard Result Negative Negative 02/17/20 12:58 AM EST [facility] (CLIA #:[id number]) Comment: NEGATIVE TEST RESULT. A negative Cologuard result indicates a low likelihood that a colorectal cancer (CRC) or advanced adenoma (adenomatous polyps with more advanced pre-malignant features) ??is present. The chance that a person with a negative Cologuard test has a colorectal cancer is less than 1 in 1500 (negative predictive value >99.9%) or has an ??advanced adenoma is less than ??5.3% (negative predictive value 94.7%). These data are based on a prospective cross-sectional study of 10,000 individuals at average risk for colorectal cancer who were screened with both Cologuard and colonoscopy. (Aki Oviedo et al, N Engl J Med 2014;370(14):1286- 1297) The normal value (reference range) for this assay is negative. COLOGUARD RE-SCREENING RECOMMENDATION: Periodic colorectal cancer screening is an important part of preventive healthcare for asymptomatic individuals at average risk for colorectal cancer. ??Following a negative Cologuard result, the [place] [employer] Society and U.S. Multi-Society Task Force screening guidelines recommend a Cologuard re-screening interval of 3 years. References: [employer] Guideline for Colorectal Cancer Screening: https://www.cancer.org/cancer/uvfya-yrmeki-worrrn/bmavrqouu-dbavfzshj-btprjdb/ac s-rec ommendations.html.; Zoltan SAVAGE, Katharine HARRIS, Tuyet GrayK, Colorectal Cancer Screening: Recommendations for Physicians and Patients from the U.S. Multi-Society Task Force on Colorectal Cancer Screening , Am J Gastroenterology 2017; 112:9376-4824. TEST DESCRIPTION: Composite algorithmic analysis of stool DNA-biomarkers with hemoglobin immunoassay. ?? Quantitative values of individual biomarkers are not reportable and are not associated with individual biomarker result reference ranges. Cologuard is intended for colorectal cancer screening of adults of either sex, 45 years or older, who are at average-risk for colorectal cancer (CRC). Cologuard has been approved for use by the U.S. FDA. The performance of Cologuard was established in a cross sectional study of average-risk adults aged 50-84. Cologuard performance in patients ages 45 to 49 years was estimated by sub-group analysis of near-age groups. Colonoscopies performed for a positive result may find as the most clinically significant lesion: colorectal cancer [4.0%], advanced adenoma (including sessile serrated polyps greater than or equal to 1cm diameter) [20%] or non- advanced adenoma [31%]; or no colorectal neoplasia [45%]. These estimates are derived from a prospective cross-sectional screening study of 10,000 individuals at average risk for colorectal cancer who were screened with both Cologuard and colonoscopy. (Aki Oviedo et al, N Engl J Med 2014;370(14):8174-9497.) Cologuard may produce a false negative or false positive result (no colorectal cancer or precancerous polyp present at colonoscopy follow up). A negative Cologuard test result does not guarantee the absence of CRC or advanced adenoma (pre-cancer). The current Cologuard screening interval is every 3 years. ([employer] [employer] and U.S. Multi-Society Task Force). Cologuard performance data in a 10,000 patient pivotal study using colonoscopy as the reference method can be accessed at the following location: www.[employer]/results. Additional description of the Cologuard test process, warnings and precautions can be found at www.[employer].com. Stool specimen (specimen) 02/09/2023 8:34 AM EST 02/10/2023 12:38 PM EST Fred Lowery MD LAB MOLECULAR DIAGNOSTICS O RDERABLES Final Result [facility] (CLIA #:[id number]) [address] [place] [address], documented in this encounter Visit Diagnoses Diagnosis Encounter for screening colonoscopy documented in this encounter Care Teams Information Systems Professor Relationship Specialty Start Date End Date Fred Lowery MD [address] [place] [id number] PCP - General Internal Medicine 03/20/13 documented as of this encounter
--- OUTSIDE RECORDS SUMMARY | 2024-03-26 17:20 | XMS_ITS | Encounter Summary ---
Author Organization [employer] Address [address] [facility] 7 [place] [address] Care Team Providers Care Retail Field Merchandiser Name Role Phone Fred Lowery MD Primary Care Provider [phone]- [phone] Reason for Visit * Reason Onset Date Comments Med Refill 03/16/2024 Encounter Details Date Type Department Care Team ([facility] st Contact Info) Description 03/16/2024 Refill [facility] MED & PEDS [address] [place] [address] Fred Lowery MD [address] [place] [address] Pain of left calf; Androgenetic alopecia; Severe obesity (CMS/HCC) Social History Tobacco Use Types Packs/Day Years [...] as of this encounter Visit Diagnoses Diagnosis Pain of left calf Androgenetic alopecia Severe obesity (CMS/HCC) Morbid obesity documented in this encounter Additional Health Concerns Assessment Noted Time PHQ-9 Depression Total Score: 14 024 9:41 AM EDT documented as of this encounter Care Teams Retail Field Merchandiser Relationship Specialty Start Date End Date Fred Lowery MD [address] [place] [id number] PCP - General Internal Medicine 03/20/13 documented as of this encounter
--- OUTSIDE RECORDS SUMMARY | 2024-03-26 17:20 | XMS_ITS | Encounter Summary ---
Author Organization [employer] Address [address] [facility] [address] [place] [address] Care Team Providers Care Cover Inspector Name Role Phone Fred Lowery MD Primary Care Provider [phone] Reason for Visit * Reason Onset Date Comments triage 06/07/2022 Encounter Details Date Type Department Care Team ([facility] st Contact Info) Description 06/07/2022 Telephone [facility] [address] [place] [address] Fred Lowery MD [address] [place], [place] [phone] triage Social History Tobacco Use Types Packs/Day Years Used Date Smoking Tobacco: Never Passive Smoke Exposure: Never Smokeless Tobacco: Never Comments Unknown Sex and Gender Information Value Date Recorded Sex Assigned at Female 12/19/2021 10:14 AM EDT Legal Sex Female 10:14 AM EDT Gender Identity Female 12/19/2021 10:14 AM EDT Sexual Orientation Straight 12/19/2021 10 :14 AM EDT COVID-19 Exposure Response Date Recorded In the last 10 days, have yo u been in contact with someone who was confirmed or suspected to have Coronavirus/COVID-19? No / Unsure 06/07/2022 3:41 PM EDT documented as of this encounter Miscellaneous Notes * Telephone Encounter - Cathie Mcmillan RN - 06/07/2022 2:49 PM EDT Triage call Pt reports a month now of sinusitis, Pt has taken antibiotics as prescribed. Pt will get better for a few days and then has difficulty breathing again. Pt gets SOB with climbing [address] to apartment. Pt reports some mildew and mold in closet near where Pt sits. Pt is using inhaler 3x/day and has a continual cough which feels like there is something in there . Pt reports feels like has some wheezing at times. Neg for fever but, gets chills on occasion. apt at [facility] [place] [facility] @ 340pm Protocol Used: Breathing Difficulty (Adult) Protocol-Based Disposition: Go to Office or Video Visit Now Video visit offer not recorded Positive Triage Questions: * Mild difficulty breathing (e.g., minimal/no SOB at rest, SOB with walking, pulse < 100) of new-onset or worse than normal * Continuous (nonstop) coughing * Patient wants to be seen * All higher-acuity triage questions were negative Care Advice Discussed: * General Care Advice for Breathing Difficulty * Fever Medicines * Reasons To Call Back - Severe difficulty breathing occurs - Fever more than 100.4 F (38.0 C) - You become worse * Telephone Encounter - Tomi Yap - 06/07/2022 2:33 PM EDT Symptoms: Wheezing, Breathing Trouble Outcome: Schedule an urgent appointment (within 1 hour) or talk to a nurse or provider soon Reason: No high acuity concerns reported by caller The caller accepted this outcome documented in this encounter Plan of Treatment Not on file documented as of this encounter Visit Diagnoses Not on filedocumented in this encounter Care Teams Cover Inspector Relationship Specialty Start Date End Date Fred Lowery MD [address] [place] [phone] PCP - General Internal Medicine 03/20/13 documented as of this encounter
--- OUTSIDE RECORDS SUMMARY | 2024-03-26 17:20 | XMS_ITS | Encounter Summary ---
Author Organization [employer] Address [address] [facility] 7t [place] [address] Care Team Providers Care Stenotypist Name Role Phone Fred Lowery MD Primary Care Provider [phone] Reason for Visit * Reason Comments Med Refill Encounter Details Date Type Department Care Team ([facility] st Contact Info) Description 03/17/2024 Refill [facility] MED & PEDS [address] [place], [place] [phone] Fred Lowery MD [address] [place] [address] Social History Tobacco Use Types Packs/Day Years [...] documented as of this encounter Care Teams Stenotypist Relationship Specialty Start Date End Date Fred Lowery MD [address] [place] [phone] PCP - General Internal Medicine 03/20/13 documented as of this encounter
--- OUTSIDE RECORDS SUMMARY | 2024-03-26 17:20 | XMS_ITS | Encounter Summary ---
Author Organization [employer] Address [address] [place] [address] [address] [place] [address] Care Team Providers Care Java Application Engineer Name Role Phone Fred Lowery MD Primary Care Provider [phone] Encounter Details Date Type Department Care Team ([facility] st Contact Info) Description 06/15/2022 Orders Only [facility] CHC MED & PEDS [address] [place], [place] [phone] Alla Monroe LPN Social History Tobacco Use Types Packs/Day Years [...] PM EDT documented as of this encounter Plan of Treatment Not on file documented as of this encounter Visit Diagnoses Not on filedocumented in this encounter Care Teams Java Application Engineer Relationship Specialty Start Date End Date Fred Lowery MD [address] [place] [address] PCP - General Internal Medicine 03/20/13 documented as of this encounter
--- OUTSIDE RECORDS SUMMARY | 2024-03-26 17:20 | XMS_ITS | Clinical Summary ---
Author Organization [employer] Address [address] [place] [address] [address] [place] [address] Care Team Providers Care Fibreglass Gun Hand Name Role Phone Fred Lowery MD Primary Care Provider [phone] Allergies Active Allergy Reactions Criticality Noted Date Comments Fluticasone Hives,Rash Low 04/13/2010 Hydrocodone Hallucinations,Hives 04/13/2010 Hydrocodone-Acetaminophen Rash Low 03/25/2019 Penicillins Hives,Nausea Only,Rash Low 12/22/2011 Medications * This document contains information received from the source organization and may not represent a complete record from that organization. buPROPion XL (Wellbutrin XL) 300 MG 24 hr tablet Take 1 tablet by mouth. 12/14/19 18 Active citalopram (CeleXA) 20 MG tablet Take 20 mg by mouth. 12/14/19 18 Active cyclobenzaprin e (Flexeril) 10 MG tablet Take 10 mg by mouth if needed in the morning and at bedtime. Active docusate sodium (Colace) 100 MG capsule Take 1 capsule by mouth at bed time. 09/11/19 21 Active hydroCHLOROthi azide (HYDRODiuril) 25 MG tablet Take 25 mg by mouth in the morning. 03/24/19 23 Active lidocaine (Lidoderm) 5 % patch Apply 1 patch topically. Active loratadine (Claritin) 10 MG tablet Take 10 mg by mouth in the morning. 07/15/19 22 Active LORazepam (Ativan) 0.5 MG tablet take 1 tablet by oral route twice daily PRN 11/06/19 20 Active losartan (Cozaar) 50 MG tablet Take 50 mg by mouth in the morning. 12/14/19 22 Active NIFEdipine CC (Adalat CC) 60 MG 24 hr tablet Take 1 tablet by mouth every 12 (twelve) hours. Active OXcarbazepine (Trileptal) 150 MG tablet TAKE ONE TABLET TWICE DAILY IN THE MORNING AND AT BEDTIME WITH 300mg TABLET 03/21/19 23 Active prazosin (Minipress) 2 MG capsule Take 5 mg by mouth. Active propranolol LA (Inderal LA) 160 MG 24 hr capsule Take 160 mg by mouth. 11/20/19 18 Active spironolactone (Aldactone) 50 MG tablet Take 50 mg by mouth in the morning. 12/07/19 19 Active Spacer/Aero-Ho lding Chambers (AeroChamber MV) inhalerIndicat ions:Cough, unspecified type Use as instructed 1 each 05/09/19 23 Active sodium chloride (Somervell) 0.65 % nasal spray Administer 2 sprays into each nostril 3 times daily. 60 mL 1 06/08/19 23 Active lidocaine-pril ocaine (Emla) 2.5-2.5 % cream APPLY TO THE AFFECTED AREA(S) TWICE DAILY NEEDED 05/05/19 23 Active fluticasone (Flonase) 50 MCG/ACT nasal spray INHALE 1 - 2 SPRAYS IN EACH NOSTRIL ONCE DAILY NEEDED 16 g 5 11/25/19 23 Active Ventolin HFA 108 (90 Base) MCG/ACT inhalerIndicat ions:Cough, unspecified type INHALE TWO PUFFS EVERY 4 HOURS NEEDED FOR WHEEZING 18 g 2 12/30/19 23 Active cholecalcifero l 50 MCG (2000 UT) capsule TAKE ONE CAPSULE EVERY MORNING 30 capsule 5 05/07/19 24 Active Semaglutide-We ight Management (Wegovy) 0.25 MG/0.5ML solution auto-injector 0.25 mg once a day 2 mL 1 12/27/19 24 Active azithromycin (Zithromax) 250 MG tabletIndicati ons:Acute cough 500 mg on day 1, 250 mg day 2 through 5 6 tablet 01/21/20 24 Active Minoxidil 5 % foamIndication s:Androgenetic alopecia To apply to the scalp once a day. 60 g 11 02/05/20 24 Active acetaminophen (Arthritis Pain Relief) 650 MG ER tabletIndicati ons:Pain of left calf Take 1 tablet (650 mg) by mouth every 8 (eight) hours if needed for mild pain. Do not crush, chew, or split. 90 tablet 3 03/17/19 25 Active ketoconazole (NIZOral) 2 % shampooIndicat ions:Androgene tic alopecia Apply topically 2 (two) times a week. 120 mL 3 03/17/19 25 Active Tirzepatide-We ight Management (Zepbound) 2.5 MG/0.5ML solution auto-injectorI ndications:Sev ere obesity (CMS/HCC) Inject 0.5 mL (2.5 mg) under the skin 1 (one) time per week. 2 mL 1 03/17/19 25 Active lidocaine-pril ocaine (Emla) 2.5-2.5 % cream APPLY TO THE AFFECTED AREA(S) TWICE DAILY NEEDED 30 g 03/17/19 25 Active lidocaine-pril ocaine (Emla) 2.5-2.5 % cream APPLY TO THE AFFECTED AREA(S) TWICE DAILY NEEDED 30 g 3 11/14/19 23 025 Discontinued Arthritis Pain Relief 650 MG ER tabletIndicati ons:Pain of left calf TAKE ONE TABLET BY MOUTH EVERY EIGHT HOURS NEEDED FOR PAIN FOR UP TO 10 DAYS, DO NOT BREAK, CRUSH, DISSOLVE OR CHEW 30 tablet 3 06/29/19 025 Discontinued(Re order (will not trigger notification to Pharmacy)) ketoconazole (NIZOral) 2 % shampooIndicat ions:Androgene tic alopecia Apply topically 2 (two) times a week. 120 mL 3 02/07/20 24 025 Discontinued(Re order (will not trigger notification to Pharmacy)) Tirzepatide-We ight Management (Zepbound) 2.5 MG/0.5ML solution auto-injectorI ndications:Sev ere obesity (CMS/HCC) Inject 0.5 mL (2.5 mg) under the skin 1 (one) time per week. 2 mL 1 02/06/20 24 025 Discontinued(Re order (will not trigger notification to Pharmacy)) lidocaine-pril ocaine (Emla) 2.5-2.5 % cream Apply topically 1 (one) time if needed for mild pain for up to 1 dose. 30 g 3 03/17/19 25 025 Active Problems Problem Noted Date Diagnosed Date Cyst of kidney, acquired 11/20/2023 Family history of breast cancer 11/20/2023 Essential hypertension 11/20/2023 Hypertension 11/20/2023 Depression 11/20/2023 Obesity 11/20/2023 Mild intermittent asthma without complication Depressive disorder 04/03/2022 Headache 04/03/2022 Severe obesity 04/03/2022 Sleep apnea 01/03/2022 Radial styloid tenosynovitis 08/01/2018 Joint pain 08/03/2017 Right upper quadrant pain 07/19/2017 Right calf pain 02/11/2016 Allergic rhinitis 12/22/2011 Anxiety 12/22/2011 Benign hypertension 12/22/2011 Vitamin D deficiency 12/22/2011 Encounters Date Type Department Care Team Description 03/17/2024 Refill [facility] P[facility]S [address] [place] [address] Fred Joseph MD 03/16/2024 Refill [facility] MED & PEDS [address] [place] [address] Fred Galdamez MD Pain of left calf; Androgenetic alopecia; Severe obesity (CMS/HCC) 03/07/2024 Telephone [facility] MED & PEDS [address] [place] [address] Fred Galdamez MD 03/07/2024 Telephone [facility] MED & PEDS [address] [place] [address] Fred Galdamez MD recall appt 02/08/2024 Telephone [facility] MED & PEDS [address] [place] [address] Fred Galdamez MD Prior Authorization 02/06/2024 Orders Only [facility] [address] [place] [address] Fred Galdamez MD Severe obesity (CMS/HCC) (Primary Dx) 02/05/2024 11:15 AM EST Office Visit [facility] [address] [place] [address] Fred Lowery MD Androgenetic alopecia (Primary Dx) 02/05/2024 Refill [facility] MED [facility] PED[facility] [address] [place] [address] Fred Lowery MD 02/05/2024 Travel 01/29/2024 Travel 01/21/2024 2:40 PM EST Office Visit [facility] P[facility] [address] [place] [address] Fred Lowery MD Acute cough (Primary Dx); Benign hypertension 01/21/2024 Travel 01/21/2024 Telephone [facility] MED [facility] PEDS [address] [place] [address] Fred Lowery MD Nurse Triage 01/03/2024 Telephone [facility] P[facility] [address] [place] [address] Fred Lowery MD appt 01/02/2024 Telephone [facility] MEDICINE [address] [place] [phone] Fred Lowery MD Results 01/02/2024 Telephone [facility] MEDICINE [address] [place] [address] Fred Lowery MD Prior Authorization 12/27/2023 9:00 AM EST Telemedicine [facility] MED & PEDS [address] [place] [address] Fred Lowery MD Hepatic steatosis (Primary Dx); Severe obesity (CMS/HCC) 12/27/2023 Travel 12/26/2023 Travel from Last 3 Months Immunizations Name Administration Dates Next Due Hep B, Unspecified 08/14/2016,03/21/2006 Hep B, adult 08/21/2006,03/21/2006,02/16/2006 Influenza injectable quadriv alent IIV4 with preservative 12/18/2017 Influenza injectable quadriv alent preservative free 11/14/2018 Influenza, IIV3, injectable 02/02/2014, 0,03/03/2009 Influenza, intradermal, quad rivalent, preservative free 11/09/2009 MMR 08/14/2016 Pneumococcal Polysaccharide PPSV23 03/03/2009 TD (adult), 2 Lf tetanus tox oid, preservative free, adsorbed 11/02/2004 Td (adult), unspecified 11/02/2004 Tdap 12/18/2017 Social History Tobacco Use Types Packs/Day Years Used Date Smoking Tobacco: Never Passive Smoke Exposure: Never Smokeless Tobacco: Never Tobacco Cessation:Counseling Given: Not Answered Depression Answer Date Recorded Patient Health Questionnaire-9 [...] Orientation Straight 12/19/2021 10 :14 AM EDT Last Filed Vital Signs Vital Sign Reading Time Taken Comments Blood Pressure 152/108 02/05/2024 11:20 AM EST Pulse 78 02/05/2024 11:15 AM EST Temperature 37 ??C (98.6 ??F) 02/05/2024 11:15 AM EST Respiratory Rate 20 02/05/2024 11:15 AM EST Oxygen Saturation 97% 02/05/2024 11:15 AM EST Inhaled Oxygen Concentration - - Weight 114 kg (252 lb) 02/05/2024 11:15 AM EST Height 160 cm (5' 3 ) 02/05/2024 11:15 AM EST Body Mass Index 44.64 02/05/2024 11:15 AM EST Plan of Treatment Health Maintenance Due Date Last Done Comments CT Colonography 1967 Colonoscopy 1967 FIT 1967 FOBT 1965 Sigmoidoscopy 1967 Alcohol/Substance Use Screening 1979 Hepatitis A Vaccines (1 of 2 - Risk 2-dose series) 1986 Pap Smear 02/26/1988 Cervical Cancer Screening 1997 HPV/Cotest 1997 Pneumococcal Vaccine: 50+ Years (2 of 2 - PCV) 03/03/2010 03/03/2009 COVID-19 Vaccine ( season) 2023 12/24/2021, 08/03/2020, 07/06/2020 Depression Monitoring (PHQ-9) 05/20/2024 11/20/2023, 11/20/2023 SDOH Screening 06/19/2024 06/20/2023 Influenza Vaccine (#1) 2024 9, 12/18/2017, 02/02/2014, Additional history exists Postponed from 10/21/2023 (Patient Refused) Depression Screening 11/19/2024 11/20/2023, 11/20/19 24 Pneumococcal Vaccine: Pediatrics (0 to 5 Years) and At-Risk Patients (6 to 49) Years) (2 of 2 - PCV) 11/19/2024 03/03/2009 Postponed from 03/03/2010 (Patient Refused) Zoster Vaccines (1 of 2) 11/19/2024 Pos tponed from 2017 (Patient Refused) Tobacco Screening 02/04/2025 02/05/2024 Mammogram 05/09/2025 05/10/2023 Colorectal Cancer Screening 02/09/2026 FIT DNA/Cologuard 02/09/2026 02/09/2023 DTaP/Tdap/Td Vaccines (2 - Td or Tdap) 12/19/2027 12/18/2017, 11/02/2004, 11/02/2004 Lipid Panel 12/27/2028 12/28/2023, 04/0 06/2021, 01/14/2020 RSV Patients and Patients Aged 60 years or older (1 - 1-dose 75+ series) 2042 Hepatitis B Vaccines Completed 08/14/2016, 08/21/2006, 03/21/2006, Additional history exists HIV Screening Completed 11/20/2023 Hepatitis C Screening Completed 11/20/2023 HIB Vaccines Aged Out No longer eligi ble based on patient's age to complete this topic HPV Vaccines Aged Out No longer eligi ble based on patient's age to complete this topic IPV Vaccines Aged Out No longer eligi ble based on patient's age to complete this topic Meningococcal Vaccine Aged Out No harini roxanne eligible based on patient's age to complete this topic RSV under 20 months Aged Out No longe r eligible based on patient's age to complete this topic Rotavirus Vaccines Aged Out No longer eligible based on patient's age to complete this topic Procedures Procedure Name Priority Date/Time Associated Diagnosis Comments AMB REFERRAL TO GENERAL SURGERY Routine 01/24/2024 Abdominal wall pain XR CHEST 2 VIEWS Routine 01/22/2024 11:4 9 AM EST Acute cough POCT RAPID COVID ANTIGEN Routine 01/21/2024 3:09 PM EST Acute cough POCT INFLUENZA B (ID NOW RAPID MOLECULAR) Routine 01/21/2024 3:08 PM EST Acute cough POCT INFLUENZA A (ID NOW RAPID MOLECULAR) Routine 01/21/2024 3:07 PM EST Acute cough LIPID PANEL, STANDARD Routine 12/28/2023 11:47 AM EST Hepatic steatosis HEPATITIS A IGM ANTIBODY Routine 12/28/2023 11:47 AM EST Hepatic steatosis HEPATITIS B SURFACE ANTIBODY, QUALITATIVE Routine 12/28/2023 11:47 AM EST Hepatic steatosis HEPATITIS C AB W/REFL TO HCV RNA, QN, PCR Routine 11/20/2023 10:43 AM EDT Benign hypertension Anxiety Screen for STD (sexually transmitted disease) HIV 1/2 ANTIGEN/ANTIBODY, FOURTH GENERATION W/RFL Routine 11/20/2023 10:43 AM EDT Benign hypertension Anxiety Screen for STD (sexually transmitted disease) LAB COLOGUARD?? COLON CANCER SCREEN Routine 02/09/2023 8:34 AM EST Encounter for screening colonoscopy from Last 3 Months or Most Recently Relevant to Health Maintenance Results * Referral to General Surgery (01/24/2024) us Fred Lowery MD OUTPATIENT REFERRAL ORDERAB LES Final Result * XR Chest 2 Views (01/22/2024 11:49 AM EST) Anatomical Region Laterality Modality Chest Radiographic Bibiana ging 01/22/2024 11:4 9 AM EST Narrative 01/23/2024 8:51 AM EST ? [facility] ?[address] ?[place] [address] ?XRay Report ? Signed ? Patient: Ambika Sweeney ?MR#: [id number] ? : 1965 ?Acct:[id number] ? Age/Sex: 58 / F ?ADM Date: 01/22/24 ? Loc: HO.XRAY ? Attending Dr: Fred Lowery MD ? Ordering Physician: Fred Lowery MD ?? Date of Service: 01/22/24 ?? Procedure(s): XR chest 2V ?? Accession Number(s): [id number] ? cc: Fred Lowery MD ? EXAMINATION: ?? XR CHEST ? CLINICAL INFORMATION: ?? Cough. ? COMPARISON: ?? Chest x-ray 05/09/2022 and multiple prior. ? TECHNIQUE: ?? 2 views of the chest were obtained. ? FINDINGS: ?? There is no gross pneumothorax. Heart size within normal limits. ? Dextroscoliosis of the thoracolumbar spine with multilevel degenerative ?? changes. ? No significant pleural effusion. No new focal consolidation. ? XR/XR chest 2V ?? IMPRESSION: ?? No new focal consolidation to suggest pneumonia. ? This study was presented today January 23, 2024 for interpretation. ?? Stat results provided at this time as requested by referring provider. ? Electronically signed by: ??Merna Vogel MD ??01/23/2024 08:48 AM EST ?? RP ? Dictated By: ?Merna Vogel MD ? Signed By: ?<Electronically signed by Merna Vogel MD in OV> ? 01/23/24 0848 ? DD/ 1149 ? TD/TT: 01/22/24 1214 ? Passenger Locomotive Engineer: ? Procedure Note [place], Image - 01/23/2024 [place] [address] XRay Report Signed Patient: Nicci Sweeney#: [id number] : 1965Acct:[id number] Age/Sex: 58 / FADM Date: 01/22/24 Loc: HO.XRAY Attending Dr: Fred Lowery MD Ordering Physician: Fred Lowery MD Date of Service: 01/22/24 Procedure(s): XR chest 2V Accession Number(s): [id number] cc: Fred Lowery MD EXAMINATION: XR CHEST CLINICAL INFORMATION: Cough. COMPARISON: Chest x-ray 05/09/2022 and multiple prior. TECHNIQUE: 2 views of the chest were obtained. FINDINGS: There is no gross pneumothorax. Heart size within normal limits. Dextroscoliosis of the thoracolumbar spine with multilevel degenerative changes. No significant pleural effusion. No new focal consolidation. XR/XR chest 2V IMPRESSION: No new focal consolidation to suggest pneumonia. This study was presented today January 23, 2024 for interpretation. Stat results provided at this time as requested by referring provider. Electronically signed by: Merna Vogel MD 01/23/2024 08:48 AM EST Dictated By: Merna Vogel MD Signed By: <Electronically signed by Merna Vogel MD in OV> 01/23/24 0848 DD/ 1149 TD/TT: 01/22/24 1214 Passenger Locomotive Engineer: us Fred Lowery MD IMG XR PROCEDURES Edited Re sult - Final * POCT Rapid COVID Ag (01/21/2024 3:09 PM EST) Rapid COVID Ag Negative QC Media Lot # Comment:[id number] Lot# Expiration Date Comment:05/06/2025 Swab 01/21/2024 3:09 PM EST us Fred Lowery MD POINT OF CARE TEST ENTER/ED IT ORDERABLES Final Result * Influenza B (ID NOW Rapid Molecular) (01/21/2024 3:08 PM EST) Influenza B Negative Negative, Indeterminate [facility] QC Media Lot # [facility] Comment:[id number] Lot# Expiration Date [facility] Comment:06/18/2024 Swab 01/21/2024 3:08 PM EST us Fred Lowery MD POINT OF CARE TEST ENTER/ED IT ORDERABLES Final Result Performing Organization Address [facility] Co de Phone Number [facility] [address] [place] [address] [phone] * Influenza A (ID NOW Rapid Molecular) (01/21/2024 3:07 PM EST) Influenza A Negative Negative, Indeterminate [facility] QC Media Lot # [facility] Comment:[id number] Lot# Expiration Date [facility] Comment:06/18/2024 Swab 01/21/2024 3:07 PM EST us Fred Lowery MD POINT OF CARE TEST ENTER/ED IT ORDERABLES Edited Result - Final [facility] [address] [place] [address] [phone] * Hepatitis A IgM (12/28/2023 11:47 AM EST) [facility] Hepatitis A IgM Nonreactive Nonreactive [facility] Comment:IgM antibodies to AVALOS V not detected; does not exclude earlyacute or recovered HAV infection. Blood Venous blood specimen / Unknown 12/28/2023 11:47 AM EST 12/28/2023 2:05 PM EST us Fred Lowery MD LAB BLOOD ORDERABLES Final Result Performing Organization Address [facility] Co de Phone Number [facility] [address] [place] [phone] * Hepatitis B Surface Antibody, Qualitative (12/28/2023 11:47 AM EST) [facility] ~Hepatitis B Surface Antibody REACTIVE Nonreactive [facility] Comment:REACTIVE: > 11.99 mI U/mL Blood Venous blood specimen / Unknown 12/28/2023 11:47 AM EST 12/28/2023 2:05 PM EST us Fred Lowery MD LAB BLOOD ORDERABLES Final Result Performing Organization Address [facility] Co de Phone Number [facility] [address] [place] [phone] * (ABNORMAL) Lipid Panel, Standard (12/28/2023 11:47 AM EST) [facility] Triglycerides 80 <150 mg/dL [facility] Comment:Desirable Triglyceri de: less than 150 mg/dLBorderline High Triglyceride 150-199 mg/dLHigh Triglyceride: 200-499 mg/dLVery High Triglyceride: greater than or equal to 5OO mg/dL Cholesterol 180 <200 mg/dL [facility] Comment:Desirable Cholestero l: less than 200 mg/dLBorderline High Cholesterol: 200-239 mg/dLHigh Cholesterol: greater than 239 mg/dL LDL Cholesterol Calculated 115(H) <100 mg/dL [facility] Comment:Desirable LDL: less than 100 mg/dLNear Optimal/Above Optimal LDL: 110- 129 mg/dLBorderline High LDL: 130-159 mg/dLHigh LDL: 160-189 mg/dLVery High LDL: greater than or equal to 190 mg/dL HDL Cholesterol 49 >40 mg/dL [facility] Comment:Desirable HDL: great er than 40 mg/dL Note: This HDL assay may give artificially low results in patients with liver disease. Blood Venous blood specimen / Unknown 12/28/2023 11:47 AM EST 12/28/2023 2:05 PM EST Fred Lowery MD LAB BLOOD ORDERABLES Final Result Performing Organization Address [facility] Co de Phone Number [facility] [address] [place] [phone] * Hepatitis C Antibody with Reflex to HCV, RNA, Quantitative, Real-Time PCR (11/20/2023 10:43 AM EDT) Hepatitis C Antibody Nonreactive Nonreactive [facility] Comment:Antibodies to HCV no t detected; does not exclude early acuteHCV infection. Blood Venous blood specimen / Unknown 11/20/2023 10:43 AM EDT 11/20/2023 2:13 PM EDT us Fred Lowery MD LAB BLOOD ORDERABLES Final Result Performing Organization Address [facility] Co de Phone Number [facility] [address] [place] [phone] * HIV-1/2 Antigen and Antibodies, Fourth Generation, with Reflexes (11/20/2023 10:43 AM EDT) HIV AB/AG Nonreactive Nonreactive [facility] Comment:HIV-1 p24 Ag and/or HIV-1/HIV-2 Ab not detected.A test result that is nonreactive does not exclude thepossibility of exposure to or infection with HIV-1 and/orHIV-2. Nonreactive results in this assay for individualswith prior exposure to HIV-1 and/or HIV-2 may be due toantigen and antibody levels that are below the limit ofdetection of this assay.The [employer] HIV Ag/Ab Combo assay result andsupplemental assay results should be interpreted inconjunction with the patient's clinical presentation,history and other laboratory results. If the results areinconsistent with clinical evidence, additional testing issuggested to confirm the result. Blood Venous blood specimen / Unknown 11/20/2023 10:43 AM EDT 11/20/2023 2:13 PM EDT us Fred Lowery MD LAB BLOOD ORDERABLES Final Result [facility] [address] [place] [address] [phone] * Cologuard?? colon cancer screening (02/09/2023 8:34 AM EST) Pathologist [facility] Cologuard Result Negative Negative 02/17/20 12:58 AM EST [employer] (CLIA #:[id number]) Comment: NEGATIVE TEST RESULT. A negative Cologuard [...] screened with both Cologuard and colonoscopy. (Aki Kuo al, N Engl J Med 2014;370(14):1286- 1297) The normal value (reference range) for this assay is negative. COLOGUARD RE-SCREENING RECOMMENDATION: Periodic colorectal cancer screening is an important part of preventive healthcare for asymptomatic individuals at average risk for colorectal cancer. ??Following a negative Cologuard result, the [place] Cancer Society and U.S. Multi-Society Task Force screening guidelines recommend a Cologuard re-screening interval of 3 years. References: [place] Cancer Society Guideline for Colorectal Cancer Screening: https://www.cancer.org/cancer/ttalj-xvrzfr-jlppry/rabrflweo-dbciaiump-honxgsx/ac s-rec ommendations.html.; Zoltan DK, Katharine HARRIS, Tuyet GrayK, Colorectal Cancer Screening: Recommendations for Physicians and Patients from the U.S. Multi-Society Task Force on Colorectal Cancer Screening , Am J Gastroenterology 2017; 112:4716-9752. TEST DESCRIPTION: Composite algorithmic analysis of stool [...] Oviedo et al, N Engl J Med 2014;370(14):9157-0177.) Cologuard may produce a false negative or false positive result (no colorectal cancer or precancerous polyp present at colonoscopy follow up). A negative Cologuard test result does not guarantee the absence of CRC or advanced adenoma (pre-cancer). The current Cologuard screening interval is every 3 years. ([place] Cancer Society and U.S. Multi-Society Task Force). Cologuard performance data in a 10,000 patient pivotal study using colonoscopy as the reference method can be accessed at the following location: www.[employer]/results. Additional description of the Cologuard test process, warnings and precautions can be found at www.cologuard.com. Stool specimen (specimen) 02/09/2023 8:34 AM EST 02/10/2023 12:38 PM EST us Fred Lowery MD LAB MOLECULAR DIAGNOSTICS O RDERABLES Final Result [facility] (CLIA #:[id number]) [address] [place] [address], from Last 3 Months or Most Recently Relevant to Health Maintenance Insurance [facility] Care Teams Fibreglass Gun Hand Relationship Specialty Start Date End Date Fred Lowery MD [address] [place] [phone] PCP - General Internal Medicine 03/20/13
--- OUTSIDE RECORDS SUMMARY | 2024-03-26 17:20 | XMS_ITS | Encounter Summary ---
Author Organization [email or web address] Address [address] [facility] [address] [place] [address] Care Team Providers Care Skelp Processor Name Role Phone Fred Lowery MD Primary Care Provider [phone] Encounter Details Date Type Department Care Team ([facility] st Contact Info) Description 03/07/2024 Telephone [facility] MED [facility]S [address] [place], [place] [phone] Fred Lowery MD [address] [place], [place] [phone] Social History Tobacco Use Types Packs/Day Years [...] documented as of this encounter Care Teams Skelp Processor Relationship Specialty Start Date End Date Fred Lowery MD [address] [place] [phone] PCP - General Internal Medicine 03/20/13 documented as of this encounter
--- OUTSIDE RECORDS SUMMARY | 2024-03-26 17:20 | XMS_ITS | Encounter Summary ---
Author Organization [employer] Address [address] [facility] 7 [place] [address] Care Team Providers Care Full Stack Engineer Name Role Phone Fred Lowery MD Primary Care Provider [phone] Reason for Visit * Reason Onset Date Comments Nurse Triage 08/30/2022 Encounter Details Date Type Department Care Team ([facility] st Contact Info) Description 08/30/2022 Telephone [facility] CHC MED & PEDS [address] [place] [address] Fred Lowery MD [address] [place] [address] Nurse Triage Social History Tobacco Use Types Packs/Day Years [...] Telephone Encounter - Cathie Mcmillan RN - 08/30/2022 11:57 AM EDT Triage call Pt reports living on third floor. Pt was going down the stairs 08/25/22 and left foot slipped which caused some pain in the left knee area. Pt reports slipped enough to lose balance. Since that time Pt has had pain in the left knee especially in the back of the knee. Pt already has problems with right knee and gets gel injections from [facility] and feels that relys on the strength of the left leg. Pt has tried ice/ heat/rest/tylenol. Pt reports heat was effective and also tried elastic bandage which gave support needed. Pt is requesting provider to look at left knee . apt [facility] 240pm 08/31. Insurance is verified as active prior to booking. Protocol Used: Leg Injury (Adult) Protocol-Based Disposition: See in Office or Video Visit within 3 Days Video visit not offered Positive Triage Question: * Injury and pain has not improved after 3 days * All higher-acuity triage questions were negative Care Advice Discussed: * Reassurance and Education - Bending or Twisting Injury (Strain, Sprain) * Use a Cold Pack for Pain, Swelling, or Bruising * Use Heat on Area After 48 Hours * Wrap With an Elastic Bandage * Elevate the Leg * Rest vs. Movement * Expected Course * Reasons To Call Back - Pain becomes severe - Pain does not improve after 3 days - Pain or swelling lasts more than 2 weeks - You become worse * Pain Medicines * Pain Medicines - Extra Notes and Warnings * Telephone Encounter - Jacinda Clements - 08/30/2022 11:33 AM EDT Symptom: Leg Pain - Not From Injury Outcome: Schedule an urgent appointment (within 1 hour) or talk to a nurse or provider soon Reason: Trouble walking The caller accepted this outcome Please contact pt at [phone] documented in this encounter Plan of Treatment Not on file documented as of this encounter Visit Diagnoses Not on filedocumented in this encounter Care Teams Full Stack Engineer Relationship Specialty Start Date End Date Fred Lowery MD [address] [place] [id number] PCP - General Internal Medicine 03/20/13 documented as of this encounter
--- OUTSIDE RECORDS SUMMARY | 2024-03-26 17:20 | XMS_ITS | Encounter Summary ---
Author Organization [employer] Address [address] [place] [address] 7 [place] [address] Care Team Providers Care Major League Baseball Player Name Role Phone Fred Lowery MD Primary Care Provider [phone] Reason for Visit * Reason Onset Date Comments Nurse Triage 02/21/2023 Encounter Details Date Type Department Care Team ([facility] st Contact Info) Description 02/21/2023 Telephone [facility] CHC MED & PEDS [address] [place], [place] [phone] Fred Lowery MD [address] [place] [address] Nurse Triage Social History Tobacco Use Types [...] Telephone Encounter - Cathie Mcmillan RN - 02/21/2023 2:15 PM EST Triage call Pt reports tested positive for Covid 02/19/23 with home test. Pt symptoms are mild with bodyaches, headaches, cough , fever of 101. Pt is advised if fever of 103 or >, chest pain/pressure with difficulty breathing should go to Ed for evaluation and assist. Other leonard if symptoms are mild treat as if has the flu. Increase liquids 6-8 glasses daily especially warm broth, decaf tea, tylenol/motrin for headaches , bodyaches. Honey 1-2 tsp for cough, sore throat, may use OTC cough suppressant syrups as well. Cough drops, hard candy for sore throat. Humidifier for cough as well. Explained isolation time of 5 days. Pt had questions regarding mp, Apt with Dr. Mcgowan tele visit 02/22/23 @ 100pm obtained and Pt will talk to MD regarding this . Pt agreed with home care disposition and advice. Protocol Used: COVID-19 - Diagnosed or Suspected (Adult) Protocol-Based Disposition: Home Care Positive Triage Question: * COVID-19 diagnosed by positive lab test (e.g., PCR, rapid self-test kit) and mild symptoms (e.g.,cough, fever, others) and no complications or SOB * All higher-acuity triage questions were negative Care Advice Discussed: * Reassurance and Education - Positive COVID-19 Lab Test and Mild Symptoms * General Care Advice for COVID-19 Symptoms * Cough Medicines * Cough Syrup With Dextromethorphan * Humidifier * Coughing Spells * Pain and Fever Medicines * Reasons To Call Back - Fever over 103 F (39.4 C) - Fever lasts over 3 days - Fever returns after being gone for 24 hours - Chest pain or difficulty breathing occurs - You become worse * COVID-19 - How to Protect Others - When You Are Sick With COVID-19 * Clean Your Hands Often * Clean High Touch Surfaces Every Day * Telephone Encounter - Adilene Calderon - 02/21/2023 1:49 PM EST Symptom: COVID-19 Suspected Outcome: Schedule a same-day appointment or talk to a nurse or provider today Reason: Caller denied all higher acuity questions The caller accepted this outcome Please contact Pt @ [phone] documented in this encounter Plan of Treatment Not on file documented as of this encounter Visit Diagnoses Not on filedocumented in this encounter Care Teams Major League Baseball Player Relationship Specialty Start Date End Date Fred Lowery MD [address] [place] [id number] PCP - General Internal Medicine 03/20/13 documented as of this encounter
== END 2024-03-26 17:21 | disposition home or self-care (01) ==
LOC: HO.ED 17:17
PROVIDERS: Physician Assistant Medical; Emergency Provider Emergency Medicine
DX: S39.012A Strain of muscle, fascia and tendon of lower back, initial encounter (principal); X58.XXXA Exposure to other specified factors, initial encounter; Y93.89 Activity, other specified; Y92.89 Other specified places as the place of occurrence of the external cause; Y99.9 Unspecified external cause status; I10 Essential (primary) hypertension
CPT/HCPCS: 36415; 72100; 80053; 81003; 85025; 99283

== ENCOUNTER → 2024-03-26 11:45 | Outpatient (BNV) | payer OTHER, SELFPAY | PROVIDERS: Visit Provider Radiology Diagnostic Radiology | DX: M47.895 Other spondylosis, thoracolumbar region (principal); M43.16 Spondylolisthesis, lumbar region | CPT/HCPCS: 72100 ==

== ENCOUNTER 2024-09-05 10:49 | Outpatient (AMB) | payer OTHER, SELFPAY ==
--- NOTE | 2024-09-05 11:04 | MHC.OFFVIS ---
Vital Signs 09/05/24 11:05 Height 5 ft 4 in Weight 249 lb BMI 42.7 BP 138/82 Blood Pressure Location Lt radial Position Sitting Respiration 16 Pulse 80 Pulse Source Pulse Oximeter Pulse Oximetry (%) 96 Oxygen Delivery Method Room Air Intake Visit Reasons: Low back pain Arc Trimmer Required: No Allergies fluticasone (From Flonase) Allergy (Mild, Verified 09/05/24 11:07) HIVES amoxicillin (AMOXICILLIN) Allergy (Unknown, Verified 09/05/24 11:07) HIVES, NAUSEA hydrocodone (Vicodin) Allergy (Unknown, Verified 09/05/24 11:07) Rash From VICODIN Allergy (Unknown, Uncoded 09/05/24 11:07) HIVES Medication List - Last Reconciled 09/05/24 by Nesha Denton LPN bupropion HCl XL 300 mg PO QAM chlorhexidine gluconate 0.12% (Peridex) 15 mL buccal BID cholecalciferol (vitamin D3) 50 mcg PO DAILY citalopram 20 mg PO QAM divalproex ER 1,000 mg PO hydrochlorothiazide 25 mg PO QAM lidocaine 5% (Lidoderm) 1 patch topical DAILY lorazepam 0.5 mg PO BID PRN losartan 50 mg PO DAILY nifedipine ER 60 mg PO prazosin 5 mg PO BEDTIME quetiapine 50 - 100 mg PO BEDTIME spironolactone 50 mg PO QAM tirzepatide (weight loss) (Zepbound) 7.5 mg subcut QWEEK HPI HPI Low back pain: Details: History of Present Illness The patient is a 59-year-old female presenting with right neck, shoulder blade, and lower back pain. The pain has persisted for six months, primarily affecting the right side, and began after a fall on her front porch. She describes the pain as burning with a pins and needles sensation, worsened by movement, with intensity ranging from 5 to 8 out of 10. Numbness is noted in the hips and legs, more on the right. Current management includes acetaminophen and lidocaine patches, with limited relief. Physical therapy was attended for two months, providing some benefit. Lumbar spine x-ray revealed lumbar spondylosis at L3-L4. An MRI has been ordered for further assessment. Pain Description - Onset: 6 months ago after a fall - Quality: Burning sensation with pins and needles - Location: Right neck, shoulder blade, and lower back - Radiation: Numbness into hips and legs, right more than left - Exacerbating factors: Movement - Relieving factors: Acetaminophen and lidocaine patches (limited relief) - Interference: Affects sleep and daily activities Physical Exam - Appears afebrile. - Alert and oriented. - Mood and affect appropriate. - Follows and participates in conversation appropriately. - Respiratory effort is unlabored. - Able to transition from sit to stand unassisted. - Ambulates with bilaterally normal heel strike and toe off. - Able to stand and walk on toes and heels. - Forward flexion reproduces pain. Results - X-ray: Grade 1 spondylolisthesis at L3-L4 Pain Management - Affect: Pain impacts sleep and daily activities - Analgesia: Current medications include acetaminophen and lidocaine patches; pain levels range from 5 to 8 out of 10 - Adverse Effects: None reported - Activities of Daily Living: Pain interferes with sleep and movement - Aberrant Drug Related Behaviors: None reported [facility] Medical History (Updated 09/05/24 @ 11:27 by Nile Carballo MD) Mild intermittent asthma Severe obesity Headache Depressive disorder Sleep apnea Benign hypertension Allergic rhinitis De Quervain's tenosynovitis Arthralgia Right calf pain Right upper quadrant abdominal pain Vitamin D deficiency HTN (hypertension) Anxiety Physical Exam Vital Signs: Last Vital Signs Pulse 80 09/05/24 11:05 Resp 16 09/05/24 11:05 BP 138/82 09/05/24 11:05 Pulse Ox 96 09/05/24 11:05 Oxygen Delivery Method Room Air 09/05/24 11:05 BMI result Body Mass Index 42.7 Assessment & Plan Assessment & Plan (1) Lumbago with sciatica, left side: Code(s): M54.42 - Lumbago with sciatica, left side Category: Medical Plan Plan - Order MRI of the lumbar spine for further evaluation of LBP not responsive to formal PT for 2 months - Continue home exercises from physical therapy, emphasizing beneficial stretches - Schedule follow-up appointment post-MRI to review findings and plan management Patient was informed and verbally consented to the use of an ambient scribe for clinic note documentation during this visit. Discussion Notes I discussed with the patient the need for an MRI to further assess her lumbar spine condition. We talked about continuing her physical therapy exercises at home, particularly those that have been beneficial. I advised her to follow up after the MRI is completed to review the results and discuss further management options. Patient Instructions - Schedule and complete the MRI as soon as possible. - Continue performing the physical therapy exercises at home, focusing on stretches that help. - Return for a follow-up appointment after the MRI to discuss the results and next steps. Orders: Orders MR lumbar spine wo con 07/03/24 M54.41 - Lumbago with sciatica, right side Coding Level of Care Code New Pt Level 4 (03478) Diagnoses Lumbago with sciatica, left side M54.42
[2024-09-05 11:05] VITALS: BP 138/82; PULSE 80; RESP 16; O2SAT 96; BMI 42.7
--- OUTSIDE RECORDS SUMMARY | 2024-09-05 11:21 | XMS_ITS | Encounter Summary ---
Author Organization [employer] Address [address] [facility] 7t [place] [address] Care Team Providers Care Miller Head Wet Process Name Role Phone Fred Lowery MD Primary Care Provider [phone] Encounter Details Date Type Department Care Team ([facility] Contact Info) Description 02/06/2024 Orders Only [facility] CHC MED & PEDS [address] [place], [place] [phone] Fred Lowery MD [address] [place], [place] [phone] Severe obesity (CMS/HCC) (Primary Dx) Social History [...] Care Team (Late st Contact Info) Description 09/16/2024 2:00 PM EDT Office Visit [facility] MED & PEDS [address] [place] [address] Fred Lowery MD [address] [place] [address] documented as of this encounter Visit Diagnoses Diagnosis Severe obesity (CMS/HCC)- Primary Morbid obesity documented in this encounter Additional Health Concerns Assessment Noted Time PHQ-9 Depression Total Score: 14 024 9:41 AM EDT documented as of this encounter Care Teams Miller Head Wet Process Relationship Specialty Start Date End Date Fred Lowery MD [address] [place] [address] PCP - General Internal Medicine 03/20/13 documented as of this encounter
--- OUTSIDE RECORDS SUMMARY | 2024-09-05 11:21 | XMS_ITS | Encounter Summary ---
Author Organization [facility] [employer] Address [address] [place] [address] Phone Care Team Providers Care Chronic Specialist Name Role Phone Fred Lowery MD Primary Care Provider [phone] Encounter Details Date Type Department Care Team (Late Contact Info) Description 12/13/2023 Documentation Only [facility] [address] [place] [address] Tucker Jensen MD [address] [place] [address] [place] [phone] Social History Tobacco Use Types Packs/Day Years [...] Care Team (Late st Contact Info) Description 10/22/2024 4:10 PM EDT Office Visit [facility] [address] [place] [address] Tucker Jensen MD [address] [place] [address] [place] [address] documented as of this encounter Visit Diagnoses Not on filedocumented in this encounter Care Teams Chronic Specialist Relationship Specialty Start Date End Date Fred Lowery MD [address] [place] [id number] PCP - General Internal Medicine 10/16/23 documented as of this encounter
== END 2024-09-05 11:25 | disposition home or self-care (01) ==
LOC: HO.PMC 10:49
PROVIDERS: PCP Internal Medicine; Visit Provider Internal Medicine
DX: M54.42 Lumbago with sciatica, left side (principal)
CPT/HCPCS: 99204

== ENCOUNTER → 2024-09-05 10:49 | Outpatient (BNVA) | payer OTHER, SELFPAY | PROVIDERS: PCP Internal Medicine; Visit Provider Internal Medicine | DX: M54.41 Lumbago with sciatica, right side (principal) | CPT/HCPCS: 99202 ==

== ENCOUNTER 2024-10-12 10:20 | Outpatient (REF) | payer OTHER, SELFPAY ==
--- NOTE | ~2024-10-12 | MR_ITS ---
CLINICAL HISTORY: Low back pain radiating to the right lower limb MR lumbar spine without gadolinium Comparison: CR/MS/SR - XR LUMBAR SPINE 2-3 VIEWS - 03/26/24 12:18 EST Findings: 5 lumbar type vertebral bodies are present by plain film. 2 mm of retrolisthesis of T11 on T12 and L1 on L2. 8 mm of anterolisthesis of L3 on L4. 3 mm of retrolisthesis of L4 on L5. No acute fracture or pathologic bone lesion. Mild reactive signal throughout the endplates of the lumbar and lower thoracic spine. L2 hemangioma. Cauda equina and conus medullaris within normal limits. Paraspinous musculature intact. No paraspinous masses L1-L2: Mild facet and ligamentum flavum hypertrophy. Mild epidural lipomatosis. Mild canal stenosis. Mild bilateral foraminal stenosis. L2-L3:Mild disc desiccation. Mild facet and ligamentum flavum hypertrophy. Mild epidural lipomatosis. Mild canal stenosis. Mild bilateral foraminal stenosis. L3-L4:Mild disc height loss and desiccation. Mild diffuse disc bulge. Moderate facet and ligamentum flavum hypertrophy. Mild epidural lipomatosis. Moderate canal stenosis. Mild bilateral foraminal stenosis. L4-L5: Mild disc desiccation and diffuse disc bulge. Moderate facet and ligamentum flavum hypertrophy. Mild epidural lipomatosis. Mild canal stenosis. Severe left and moderate right foraminal stenosis. Left L4 nerve root compression. L5-S1:Mild bilateral facet hypertrophy. Moderate epidural lipomatosis. Mild canal stenosis. Mild bilateral foraminal stenosis. IMPRESSION: 1. Multilevel degenerative disc and facet disease, as well as ligamentum flavum hypertrophy. 2. Multilevel canal stenoses, worst at L3-L4 where there is moderate canal stenosis. 3. Multilevel foraminal stenoses, worst at L4-L5 where there is associated intraforaminal nerve root compression. Correlation with clinical symptoms is recommended to assess relevance of this finding. This document has been electronically signed by: Alejandro Ritter MD on 10/13/2024 15:59:53
--- OUTSIDE RECORDS SUMMARY | 2024-10-12 10:28 | XMS_ITS | Encounter Summary ---
Author Organization [employer] Address [address] [facility] 7t [place] [address] Care Team Providers Care Ranch Hand Supervisor Name Role Phone Fred Lowery MD Primary Care Provider [phone] Encounter Details Date Type Department Care Team ([facility] Contact Info) Description 02/06/2024 Orders Only [facility] CHC MED & PEDS [address] [place], [place] [phone] Fred Lowery MD [address] [place], [place] [phone] Severe obesity (CMS/HCC) (Primary Dx) Social History [...] documented as of this encounter Care Teams Ranch Hand Supervisor Relationship Specialty Start Date End Date Fred Lowery MD [address] [place] [id number] PCP - General Internal Medicine 03/20/13 documented as of this encounter
== END 2024-10-12 10:21 | disposition home or self-care (01) ==
LOC: HO.MRI 10:20
PROVIDERS: PCP Internal Medicine; Visit Provider Internal Medicine
DX: M54.41 Lumbago with sciatica, right side (principal)
CPT/HCPCS: 72148

== ENCOUNTER → 2024-10-12 10:20 | Outpatient (BNV) | payer OTHER, SELFPAY | PROVIDERS: PCP Internal Medicine; Visit Provider Radiology Diagnostic Radiology | DX: M54.41 Lumbago with sciatica, right side (principal) | CPT/HCPCS: 72148 ==

== ENCOUNTER 2024-11-21 09:40 | Outpatient (AMB) | payer OTHER, SELFPAY ==
--- NOTE | 2024-11-21 09:44 | MHC.OFFVIS ---
Vital Signs 11/21/24 09:45 Height 5 ft 4 in Weight 241 lb BMI 41.4 BP 130/88 Blood Pressure Location Lt radial Position Sitting Respiration 16 Pulse 66 Pulse Source Pulse Oximeter Pulse Oximetry (%) 98 Oxygen Delivery Method Room Air Intake Visit Reasons: Discuss Injection Dietary Aide Teacher Required: No Allergies fluticasone (From Flonase) Allergy (Mild, Verified 11/21/24 09:47) HIVES amoxicillin (AMOXICILLIN) Allergy (Unknown, Verified 11/21/24 09:47) HIVES, NAUSEA hydrocodone (Vicodin) Allergy (Unknown, Verified 11/21/24 09:47) Rash Medication List - Last Reconciled 11/21/24 by Nesha Denton LPN bupropion HCl XL 300 mg PO QAM cholecalciferol (vitamin D3) 50 mcg PO DAILY citalopram 20 mg PO QAM divalproex ER 1,000 mg PO hydrochlorothiazide 25 mg PO QAM lidocaine 5% (Lidoderm) 1 patch topical DAILY lorazepam 0.5 mg PO BID PRN losartan 50 mg PO DAILY nifedipine ER 60 mg PO oxcarbazepine 300 mg PO BID prazosin 5 mg PO BEDTIME propranolol ER 160 mg PO DAILY quetiapine 50 - 100 mg PO BEDTIME spironolactone 50 mg PO QAM tirzepatide (weight loss) (Zepbound) 7.5 mg subcut QWEEK HPI HPI Discuss Injection: Details: History of Present Illness The patient is a 59-year-old female presenting with low back pain. The pain radiates down both legs, with the right leg being more bothersome. She experiences numbness from her hips down to her legs, and the pain worsens with prolonged standing or sitting. The patient has tried physical therapy, which provided temporary relief but sometimes worsened her symptoms. She continues with a home exercise program to manage her symptoms. The MRI of the lumbar spine showed spondylolisthesis at L3 and L4, causing nerve tugging and numbness. There is no current need for surgery unless dynamic instability develops. The patient has a history of hypertension, which is controlled with medication. Pain Description - Onset: Chronic, with episodes of exacerbation - Quality: Radiating pain with numbness - Location: Low back, radiating to both legs, more severe on the right - Exacerbating factors: Prolonged standing or sitting - Relieving factors: Extension of the back Physical Exam - Musculoskeletal: Pain on forward flexion, relief on extension, pain on lateral bending of the lumbar spine - Neurological: Stretching sensation in the right leg during straight leg raise Results - MRI: Vertebral slippage at L3 and L4 with mild nerve tugging Pain Management - Affect: Pain impacts daily activities and mood - Analgesia: Considering cortisone injections for pain relief - Adverse Effects: Potential side effects of cortisone discussed, including temporary increase in blood pressure and weight gain - Activities of Daily Living: Pain limits prolonged standing or sitting - Aberrant Drug Related Behaviors: None reported [facility] Medical History (Updated 09/05/24 @ 11:27 by Nile Carballo MD) Mild intermittent asthma Severe obesity Headache Depressive disorder Sleep apnea Benign hypertension Allergic rhinitis De Quervain's tenosynovitis Arthralgia Right calf pain Right upper quadrant abdominal pain Vitamin D deficiency HTN (hypertension) Anxiety Physical Exam Vital Signs: Last Vital Signs Pulse 66 11/21/24 09:45 Resp 16 11/21/24 09:45 BP 130/88 11/21/24 09:45 Pulse Ox 98 11/21/24 09:45 Oxygen Delivery Method Room Air 11/21/24 09:45 BMI result Body Mass Index 41.4 Assessment & Plan Assessment & Plan (1) Lumbago with sciatica, left side: Code(s): M54.42 - Lumbago with sciatica, left side Category: Medical Plan Plan Patient was informed and verbally consented to the use of an ambient scribe for clinic note documentation during this visit. 1. Low Back Pain - Plan to administer a right parasagittal interlaminar L3-4 epidural steroid injection (MAYKEL) to manage current pain. - Continue home exercise program and consider future ablation of the basal vertebral nerve if pain persists. 2. Bilateral Lumbar Radiculopathy - MRI findings indicate nerve tugging due to vertebral slippage at L3 and L4. - No immediate surgical intervention required unless dynamic instability develops. 3. Hypertension - Blood pressure is controlled with current medication regimen. - Monitor blood pressure due to potential increase from cortisone injections. Discussion Notes I discussed with the patient the MRI findings, which showed vertebral slippage at L3 and L4 causing nerve tugging and numbness. We talked about the potential benefits and risks of cortisone injections, including temporary increases in blood pressure and weight gain. I provided a brochure on the ablation of the basal vertebral nerve for future consideration if pain persists. Patient Instructions - Continue with home exercise program to manage symptoms. - Monitor blood pressure regularly, especially after receiving cortisone injections. - Review the brochure on basal vertebral nerve ablation and consider it if pain persists. Coding Level of Care Code Est Pt Level 4 (31572) Diagnoses Lumbago with sciatica, left side M54.42
[2024-11-21 09:45] VITALS: BP 130/88; PULSE 66; RESP 16; O2SAT 98; BMI 41.4
--- OUTSIDE RECORDS SUMMARY | 2024-11-21 10:15 | XMS_ITS | Encounter Summary ---
Author Organization [employer] Address [address] [place] [address] [address] [address] Care Team Providers Care Car Trimmer Name Role Phone Fred Lowery MD Primary Care Provider [phone] Reason for Referral * Consultation (Routine) - Closed Specialty Diagnoses / Procedures Referred By Contac t Referred To Contact Pain Medicine Diagnoses Foraminal stenosis of lumbar region Low back pain, unspecified back pain laterality, unspecified chronicity, unspecified whether sciatica present Fred Lowery MD [address] [place] [address] Phone: tel: fax: [facility], [address] [place], [place] Phone: tel: fax: Referral ID Status Reason Start Date Expiration Date V isits Requested Visits Authorized [id number] Closed Specialty Services Required 07/30/2024 07/30/2025 1 1 Encounter Details Date Type Department Care Team (Late st Contact Info) Description 07/30/2024 Orders Only [facility] PEDS [address] [place] [address] Fred Lowery MD [address] [place] [id number] Foraminal stenosis of lumbar region (Primary Dx); Low back pain, unspecified back pain laterality, unspecified chronicity, unspecified whether sciatica present Social History Tobacco Use Types Packs/Day Years Used Date Smoking Tobacco: Never Passive Smoke Exposure: Never Smokeless Tobacco: Never Depression Answer Date Recorded Patient Health Questionnaire-9 Score 14 11/20/2023 Patient Health Questionnaire-9 Score 14 11/20/2023 Last PHQ-9: Questionnaire Data Not on file 1 Housing Stability Answer Date Recorded What is your housing situation today? I have housing today, but I am worried about losing housing in the future 05/30/[address] you li ve. Do you have problems with any of the following? Mold 05/30/2024 Food Insecurity Answer Date Recorded Within the past 12 months, y ou worried that your food would run out before you got money to buy more: Sometimes True 2024 Within the past 12 months,th e food you bought just didn't last and you didn't have enough money to get more: Sometimes True 05/30/2024 Transportation Answer Date Recorded In the past [...] Recorded Patient Health Questionnaire-2 Score 2 11/20/2023 Internet Access Answer Date Recorded Internet Access Q1 Yes 05/30/2024 Internet Access Q2 Not on file 05/30/2024 Comments Unknown Sex and Gender Information Value Date Recorded Sex Assigned at Female 12/19/2021 10:14 AM EDT Legal Sex Female 10:14 AM EDT Gender Identity Female 12/19/2021 10:14 AM EDT Sexual Orientation Straight 12/19/2021 10 :14 AM EDT documented as of this encounter Plan of Treatment Scheduled Referrals Name Type Priority Associated Diagnoses Orde r Schedule Referral to Pain Medicine Outpatient Referral Routine Foraminal stenosis of lumbar region Low back pain, unspecified back pain laterality, unspecified chronicity, unspecified whether sciatica present Expected: 07/30/2024 (Approximate), Expires: 07/30/2025 documented as of this encounter Visit Diagnoses Diagnosis Foraminal stenosis of lumbar region- Primary Low back pain, unspecified back pain laterality, unspecified chronicity, unspecified whether sciatica present documented in this encounter Additional Health Concerns Assessment Noted Time PHQ-9 Depression Total Score: 14 024 9:41 AM EDT documented as of this encounter Care Teams Car Trimmer Relationship Specialty Start Date End Date Fred Lowery MD [address] [place] [id number] PCP - General Internal Medicine 03/20/13 documented as of this encounter
--- OUTSIDE RECORDS SUMMARY | 2024-11-21 10:15 | XMS_ITS | Encounter Summary ---
Author Organization [employer] Address [address] [facility] [address] [place] [address] Care Team Providers Care Heading Machine Operator Name Role Phone Fred Lowery MD Primary Care Provider [phone] Encounter Details Date Type Department Care Team ([facility] Contact Info) Description 06/06/2024 Orders Only [facility] MED & PEDS [address] [place], [place] [phone] Fred Loweyr MD [address] [place], [place] [phone] Social History Tobacco Use Types Packs/Day Years [...] documented as of this encounter Care Teams Heading Machine Operator Relationship Specialty Start Date End Date Fred Lowery MD [address] [place] [phone] PCP - General Internal Medicine 03/20/13 documented as of this encounter
--- OUTSIDE RECORDS SUMMARY | 2024-11-21 10:15 | XMS_ITS | Encounter Summary ---
Author Organization [employer] Address [address] [facility] [address] [place] [address] Care Team Providers Care Audio Operator Name Role Phone Fred Lowery MD Primary Care Provider [phone] Encounter Details Date Type Department Care Team ([facility] Contact Info) Description 02/06/2024 Orders Only [facility] MED & PEDS [address] [place], [place] [phone] Fred Lowery MD [address] [place], [place] [phone] Severe obesity (CMS/HCC) (Primary Dx) Social History [...] this encounter Visit Diagnoses Diagnosis Severe obesity (CMS/HCC) (HCC)- Primary Morbid obesity documented in this encounter Additional Health Concerns Assessment Noted Time PHQ-9 Depression Total Score: 14 024 9:41 AM EDT documented as of this encounter Care Teams Audio Operator Relationship Specialty Start Date End Date Fred Lowery MD [address] [place] [phone] PCP - General Internal Medicine 03/20/13 documented as of this encounter
--- OUTSIDE RECORDS SUMMARY | 2024-11-21 10:15 | XMS_ITS | Encounter Summary ---
Author Organization [employer] Address [address] [facility] [address] [place] [address] Care Team Providers Care Freight Rate Specialist Name Role Phone Fred Lowery MD Primary Care Provider [phone] Reason for Visit * Reason Onset Date Comments Nurse Triage 02/21/2023 Encounter Details Date Type Department Care Team ([facility] st Contact Info) Description 02/21/2023 Telephone [facility] MED & PEDS [address] [place], [place] [phone] Fred Lowery MD [address] [place], [place] [phone] Nurse Triage Social History Tobacco Use Types [...] accepted this outcome Please contact Pt @ [phone] documented in this encounter Plan of Treatment Not on file documented as of this encounter Visit Diagnoses Not on filedocumented in this encounter Care Teams Freight Rate Specialist Relationship Specialty Start Date End Date Fred Lowery MD [address] [place] [id number] PCP - General Internal Medicine 03/20/13 documented as of this encounter
--- OUTSIDE RECORDS SUMMARY | 2024-11-21 10:15 | XMS_ITS | Clinical Summary ---
Author Organization [employer] Address [address] [facility] 7[address] [place] [address] Care Team Providers Care Video Game Animator Name Role Phone Fred Lowery MD Primary Care Provider [phone] Allergies Active Allergy Reactions Criticality Noted Date Comments Fluticasone Hives,Rash Low 04/13/2010 Hydrocodone Hallucinations,Hives 04/13/2010 Hydrocodone-Acetaminophen Rash Low 03/25/2019 Penicillins Hives,Nausea Only,Rash Low 12/22/2011 Medications * This document contains information received from the source organization and may not represent a complete record from that organization. buPROPion XL (Wellbutrin XL) 300 MG 24 hr tablet Take 1 tablet by mouth. Active citalopram (CeleXA) 20 MG tablet Take 20 mg by mouth. Active cyclobenzaprin e (Flexeril) 10 MG tablet Take 10 mg by mouth if needed in the morning and at bedtime. Active docusate sodium (Colace) 100 MG capsule Take 1 capsule by mouth at bed time. Active hydroCHLOROthi azide (HYDRODiuril) 25 MG tablet Take 25 mg by mouth in the morning. Active lidocaine (Lidoderm) 5 % patch Apply 1 patch topically. Active loratadine (Claritin) 10 MG tablet Take 10 mg by mouth in the morning. Active LORazepam (Ativan) 0.5 MG tablet take 1 tablet by oral route twice daily PRN Active losartan (Cozaar) 50 MG tablet Take 50 mg by mouth in the morning. Active NIFEdipine CC (Adalat CC) 60 MG 24 hr tablet Take 1 tablet by mouth every 12 (twelve) hours. Active OXcarbazepine (Trileptal) 150 MG tablet TAKE ONE TABLET TWICE DAILY IN THE MORNING AND AT BEDTIME WITH 300mg TABLET Active prazosin (Minipress) 2 MG capsule Take 5 mg by mouth. Active propranolol LA (Inderal LA) 160 MG 24 hr capsule Take 160 mg by mouth. 018 Active spironolactone (Aldactone) 50 MG tablet Take 50 mg by mouth in the morning. 019 Active Spacer/Aero-Ho lding Chambers (AeroChamber MV) inhalerIndicat ions:Cough, unspecified type Use as instructed 1 each 023 Active sodium chloride (Grayson) 0.65 % nasal spray Administer 2 sprays into each nostril 3 times daily. 60 mL 1 023 Active lidocaine-pril ocaine (Emla) 2.5-2.5 % cream APPLY TO THE AFFECTED AREA(S) TWICE DAILY NEEDED 023 Active fluticasone (Flonase) 50 MCG/ACT nasal spray INHALE 1 - 2 SPRAYS IN EACH NOSTRIL ONCE DAILY NEEDED 16 g 5 023 Active Ventolin HFA 108 (90 Base) MCG/ACT inhalerIndicat ions:Cough, unspecified type INHALE TWO PUFFS EVERY 4 HOURS NEEDED FOR WHEEZING 18 g 2 023 Active cholecalcifero l 50 MCG (2000 UT) capsule TAKE ONE CAPSULE EVERY MORNING 30 capsule 5 024 Active Semaglutide-We ight Management (Wegovy) 0.25 MG/0.5ML solution auto-injector 0.25 mg once a day 2 mL 1 024 Active azithromycin (Zithromax) 250 MG tabletIndicati ons:Acute cough 500 mg on day 1, 250 mg day 2 through 5 6 tablet 024 Active Minoxidil 5 % foamIndication s:Androgenetic alopecia To apply to the scalp once a day. 60 g 11 024 Active ketoconazole (NIZOral) 2 % shampooIndicat ions:Androgene tic alopecia Apply topically 2 (two) times a week. 120 mL 3 025 Active lidocaine-pril ocaine (Emla) 2.5-2.5 % cream APPLY TO THE AFFECTED AREA(S) TWICE DAILY NEEDED 30 g 3 025 Active cyclobenzaprin e (Flexeril) 10 MG tabletIndicati ons:Low back pain, unspecified back pain laterality, unspecified chronicity, unspecified whether sciatica present Take 1 tablet (10 mg) by mouth if needed in the morning, at noon, and at bedtime for muscle spasms. 30 tablet 2 025 Active acetaminophen (Arthritis Pain Relief) 650 MG ER tabletIndicati ons:Low back pain, unspecified back pain laterality, unspecified chronicity, unspecified whether sciatica present Take 1 tablet (650 mg) by mouth every 8 (eight) hours if needed for mild pain. Do not crush, chew, or split. 90 tablet 3 025 Active Zepbound 7.5 MG/0.5ML solution auto-injector INJECT 7.5MG'S (0.5ML'S) SUBCUTANEOUSLY ONCE PER WEEK 2 mL 1 025 Active Tirzepatide-We ight Management (Zepbound) 7.5 MG/0.5ML solution auto-injectorI ndications:Sev ere obesity (CMS/HCC) (HCC),Obstruct tammy sleep apnea syndrome Inject 0.5 mL (7.5 mg) under the skin 1 (one) time per week. 2 mL 2 025 Active lidocaine (LMX 4) 4 % creamIndicatio ns:Low back pain, unspecified back pain laterality, unspecified chronicity, unspecified whether sciatica present Apply topically if needed in the morning, at noon, in the evening, and at bedtime for mild pain. 60 g 025 2025 Active lidocaine (LMX 4) 4 % creamIndicatio ns:Low back pain, unspecified back pain laterality, unspecified chronicity, unspecified whether sciatica present Apply topically if needed in the morning, at noon, in the evening, and at bedtime for mild pain. 60 g 025 2024 Discontinued(R eorder (will not trigger notification to Pharmacy)) Active Problems Problem Noted Date Diagnosed Date Cyst of kidney, acquired 11/20/2023 Family history of breast cancer 11/20/2023 Essential hypertension 11/20/2023 Hypertension 11/20/2023 Depression 11/20/2023 Obesity 11/20/2023 Mild intermittent asthma without complication Depressive disorder 04/03/2022 Headache 04/03/2022 Severe obesity (CMS/HCC) 04/03/2022 Sleep apnea 01/03/2022 Radial styloid tenosynovitis 08/01/2018 Joint pain 08/03/2017 Right upper quadrant pain 07/19/2017 Right calf pain 02/11/2016 Allergic rhinitis 12/22/2011 Anxiety 12/22/2011 Benign hypertension 12/22/2011 Vitamin D deficiency 12/22/2011 Encounters Date Type Department Care Team Description 10/30/2024 Refill [facility] [address] [place] [address] Fred Lowery MD Low back pain, unspecified back pain laterality, unspecified chronicity, unspecified whether sciatica present; Severe obesity (CMS/HCC); Obstructive sleep apnea syndrome 10/14/2024 Results Follow-Up [facility] [address] [place] [address] Elma Portillo RN MR Lumbar Spine w/o Contrast 10/13/2024 Orders Only [facility] [address] [place] [address] Fred Loweyr MD Lumbar nerve root compression (Primary Dx) 10/12/2024 Orders Only [facility] External Provider, [facility] 09/16/2024 2:00 PM EDT Office Visit [facility] [address] [place] [address] Fred Lowery MD Severe obesity (CMS/HCC) (Primary Dx); Obstructive sleep apnea syndrome; Benign hypertension; Low back pain, unspecified back pain laterality, unspecified chronicity, unspecified whether sciatica present 09/16/2024 Travel 09/11/2024 Refill [facility] [address] [place] [address] Fred Lowery MD from Last 3 Months Immunizations Immunization Administration Dates Next Due Hep A, Adult 03/31/2024 Hep B, Unspecified 08/14/2016,03/21/2006 Hep B, adult [...] Sign Reading Time Taken Comments Blood Pressure 147/97 09/16/2024 2:03 PM EDT Pulse 85 09/16/2024 2:03 PM EDT Temperature 36.8 C (98.2 F) 09/16/2024 2:03 PM EDT Respiratory Rate 20 09/16/2024 2:03 PM EDT Oxygen Saturation 97% 09/16/2024 2:03 PM EDT Inhaled Oxygen Concentration - - Weight 113 kg (249 lb) 09/16/2024 2:03 PM EDT Height 160 cm (5' 3 ) 09/16/2024 2:03 PM EDT Body Mass Index 44.11 09/16/2024 2:03 PM EDT Plan of Treatment Health Maintenance Due Date Last Done Comments CT Colonography 1967 Colonoscopy 1967 FIT 1967 Sigmoidoscopy 1965 Disability Screening 1967 Pap Smear 02/26/1988 Cervical Cancer Screening 1997 HPV/Cotest 1997 FOBT 02/10/2024 02/09/2023 Depression Monitoring 05/20/2024 11/20/2023, 024 Hepatitis A Vaccines (2 of 2 - Risk 2-dose series) 09/28/2024 03/31/2024 COVID-19 Vaccine ( season) 2024 12/24/2021, 08/03/2020, 07/06/2020 Influenza Vaccine (#1) 2024 9, 12/18/2017, 02/02/2014, Additional history exists Zoster Vaccines (1 of 2) 11/19/2024 Pos tponed from 2017 (Patient Refused) Alcohol/Substance Use Screening 03/31/2025 03/31/2024 Pneumococcal Vaccine: 50+ Years (2 of 2 - PCV) 03/31/2025 03/03/2009 Postponed from 03/03/2010 (Patient Refused) SDOH Screening 05/30/2025 05/30/2024 Tobacco Screening 09/16/2025 09/16/2024 Colorectal Cancer Screening 02/09/2026 FIT DNA/Cologuard 02/09/2026 02/09/2023 Mammogram 05/13/2026 05/13/2024, 05/10/2023 DTaP/Tdap/Td Vaccines (2 - Td or Tdap) [...] patient's age to complete this topic Meningococcal B Vaccine Aged Out No l onger eligible based on patient's age to complete [...] Procedure Name Priority Date/Time Associated Diagnosis Comments MR LUMBAR SPINE WO CONTRAST Routine 10/13/2024 3:59 PM EDT HM MAMMOGRAPHY Routine 05/13/2024 1:10 PM EDT LIPID PANEL, STANDARD Routine 12/28/2023 11:47 AM EST Hepatic steatosis HEPATITIS C AB W/REFL TO HCV RNA, QN, PCR Routine 11/20/2023 10:43 AM EDT Benign hypertension Anxiety Screen for STD (sexually transmitted disease) HIV 1/2 ANTIGEN/ANTIBODY, FOURTH GENERATION W/RFL Routine 11/20/2023 10:43 AM EDT Benign hypertension Anxiety Screen for STD (sexually transmitted disease) LAB COLOGUARD COLON CANCER SCREEN Routine 02/09/2023 8:34 AM EST Encounter for screening colonoscopy from Last 3 Months or Most Recently Relevant to Health Maintenance Results * MR Lumbar Spine w/o Contrast (10/13/2024 3:59 PM EDT) Anatomical Region Laterality Modality Spine, L-spine Magnetic Resonan ce 10/13/2024 3:59 PM EDT Narrative 10/13/2024 4:00 PM EDT [place] [address] Magnetic Resonance Report Signed Patient: Ambika Sweeney MR#: [id number] : 1965 Acct:[id number] Age/Sex: 59 / F ADM Date: 10/12/24 Loc: HO.MRI Attending Dr: Nile Carballo MD Ordering Physician: Nile Carballo MD Date of Service: 10/12/24 Procedure(s): MR lumbar spine wo con Accession Number(s): [id number] cc: Fred Lowery MD; Nile Carballo MD CLINICAL HISTORY: Low back pain radiating to the right lower limb MR lumbar spine without gadolinium Comparison: CR/MS/SR - XR LUMBAR SPINE 2-3 VIEWS - 03/26/24 12:18 EST Findings: 5 lumbar type vertebral bodies are present by plain film. 2 mm of retrolisthesis of T11 on T12 and L1 on L2. 8 mm of anterolisthesis of L3 on L4. 3 mm of retrolisthesis of L4 on L5. No acute fracture or pathologic bone lesion. Mild reactive signal throughout the endplates of the lumbar and lower thoracic spine. L2 hemangioma. Cauda equina and conus medullaris within normal limits. Paraspinous musculature intact. No paraspinous masses L1-L2: Mild facet and ligamentum flavum hypertrophy. Mild epidural lipomatosis. Mild canal stenosis. Mild bilateral foraminal stenosis. L2-L3:Mild disc desiccation. Mild facet and ligamentum flavum hypertrophy. Mild epidural lipomatosis. Mild canal stenosis. Mild bilateral foraminal stenosis. L3-L4:Mild disc height loss and desiccation. Mild diffuse disc bulge. Moderate facet and ligamentum flavum hypertrophy. Mild epidural lipomatosis. Moderate canal stenosis. Mild bilateral foraminal stenosis. L4-L5: Mild disc desiccation and diffuse disc bulge. Moderate facet and ligamentum flavum hypertrophy. Mild epidural lipomatosis. Mild canal stenosis. Severe left and moderate right foraminal stenosis. Left L4 nerve root compression. L5-S1:Mild bilateral facet hypertrophy. Moderate epidural lipomatosis. Mild canal stenosis. Mild bilateral foraminal stenosis. IMPRESSION: 1. Multilevel degenerative disc and facet disease, as well as ligamentum flavum hypertrophy. 2. Multilevel canal stenoses, worst at L3-L4 where there is moderate canal stenosis. 3. Multilevel foraminal stenoses, worst at L4-L5 where there is associated intraforaminal nerve root compression. Correlation with clinical symptoms is recommended to assess relevance of this finding. This document has been electronically signed by: Alejandro Ritter MD on 10/13/2024 15:59:53 Dictated By: Alejandro Ritter MD Signed By: <Electronically signed by Alejandro Ritter MD in OV> 10/13/24 1600 DD/ 1559 TD/TT: 10/13/24 1559 Transitional Kindergarten Teacher: Procedure Note Donotuseinterpreter, Image - 10/13/[address] [address] Magnetic Resonance Report Signed Patient: Nicci Sweeney#: [id number] : 1965Acct:[id number] Age/Sex: 59 / FADM Date: 10/12/24 Loc: HO.MRI Attending Dr: Nile Carballo MD Ordering Physician: Nile Carballo MD Date of Service: 10/12/24 Procedure(s): MR lumbar spine wo con Accession Number(s): [id number] cc: Fred Lowery MD; Nile Carballo MD CLINICAL HISTORY: Low back pain radiating to the right lower limb MR lumbar spine without gadolinium Comparison: CR/MS/SR - XR LUMBAR SPINE 2-3 VIEWS - 03/26/24 12:18 EST Findings: 5 lumbar type vertebral bodies are present by plain film. 2 mm of retrolisthesis of T11 on T12 and L1 on L2. 8 mm of anterolisthesis of L3 on L4. 3 mm of retrolisthesis of L4 on L5. No acute fracture or pathologic bone lesion. Mild reactive signal throughout the endplates of the lumbar and lower thoracic spine. L2 hemangioma. Cauda equina and conus medullaris within normal limits. Paraspinous musculature intact. No paraspinous masses L1-L2: Mild facet and ligamentum flavum hypertrophy. Mild epidural lipomatosis. Mild canal stenosis. Mild bilateral foraminal stenosis. L2-L3:Mild disc desiccation. Mild facet and ligamentum flavum hypertrophy. Mild epidural lipomatosis. Mild canal stenosis. Mild bilateral foraminal stenosis. L3-L4:Mild disc height loss and desiccation. Mild diffuse disc bulge. Moderate facet and ligamentum flavum hypertrophy. Mild epidural lipomatosis. Moderate canal stenosis. Mild bilateral foraminal stenosis. L4-L5: Mild disc desiccation and diffuse disc bulge. Moderate facet and ligamentum flavum hypertrophy. Mild epidural lipomatosis. Mild canal stenosis. Severe left and moderate right foraminal stenosis. Left L4 nerve root compression. L5-S1:Mild bilateral facet hypertrophy. Moderate epidural lipomatosis. Mild canal stenosis. Mild bilateral foraminal stenosis. IMPRESSION: 1. Multilevel degenerative disc and facet disease, as well as ligamentum flavum hypertrophy. 2. Multilevel canal stenoses, worst at L3-L4 where there is moderate canal stenosis. 3. Multilevel foraminal stenoses, worst at L4-L5 where there is associated intraforaminal nerve root compression. Correlation with clinical symptoms is recommended to assess relevance of this finding. This document has been electronically signed by: Alejandro Ritter MD on 10/13/2024 15:59:53 Dictated By: Alejandro Ritter MD Signed By: <Electronically signed by Alejandro Ritter MD in OV> 10/13/24 1600 DD/ 1559 TD/TT: 10/13/24 155 Transitional Kindergarten Teacher: [facility] External Provider IMG MRI PROCEDURES Final Result * Hm Mammography (05/13/2024 1:10 PM EDT) Anatomical Region Laterality Modality Other Historical Provider HEALTH MAINTENANCE Final Result * (ABNORMAL) Lipid Panel, Standard (12/28/2023 11:47 AM EST) Triglycerides 80 <150 mg/dL [facility] Comment:Desirable Triglyceri de: less than 150 mg/dLBorderline High Triglyceride 150-199 mg/dLHigh Triglyceride: 200-499 mg/dLVery High Triglyceride: greater than or equal to 5OO mg/dL Cholesterol 180 <200 mg/dL [facility] Comment:Desirable Cholestero l: less than 200 mg/dLBorderline High Cholesterol: 200-239 mg/dLHigh Cholesterol: greater than 239 mg/dL LDL Cholesterol Calculated 115(H) <100 mg/dL [facility] Comment:Desirable LDL: less than 100 mg/dLNear Optimal/Above Optimal LDL: 110- 129 mg/dLBorderline High LDL: 130-159 mg/dLHigh LDL: 160-189 mg/dLVery High LDL: greater than or equal to 190 mg/dL HDL Cholesterol 49 >40 mg/dL [facility] Comment:Desirable HDL: great er than 40 mg/dL Note: This HDL assay may give artificially low results in patients with liver disease. Blood Venous blood specimen / Unknown 12/28/2023 11:47 AM EST 12/28/2023 2:05 PM EST Fred Lowery MD LAB BLOOD ORDERABLES Final Result [facility] [address] [place] [address] [phone] * Hepatitis C Antibody with Reflex to HCV, RNA, Quantitative, Real-Time PCR (11/20/2023 10:43 AM EDT) Hepatitis C Antibody Nonreactive Nonreactive [facility] Comment:Antibodies to HCV no t detected; does not exclude early acuteHCV infection. Blood Venous blood specimen / Unknown 11/20/2023 10:43 AM EDT 11/20/2023 2:13 PM EDT us Fred Lowery MD LAB BLOOD ORDERABLES Final Result [facility] [address] [place] [address] [phone] * HIV-1/2 Antigen and Antibodies, Fourth Generation, with Reflexes (11/20/2023 10:43 AM EDT) HIV AB/AG Nonreactive Nonreactive [facility] Comment:HIV-1 p24 Ag and/or HIV-1/HIV-2 Ab not detected.A test result that is nonreactive does not exclude thepossibility of exposure to or infection with HIV-1 and/orHIV-2. Nonreactive results in this assay for individualswith prior exposure to HIV-1 and/or HIV-2 may be due toantigen and antibody levels that are below the limit ofdetection of this assay.The TaykeyniSeahorse HIV Ag/Ab Combo assay result andsupplemental assay results should be interpreted inconjunction with the patient's clinical presentation,history and other laboratory results. If the results areinconsistent with clinical evidence, additional testing issuggested to confirm the result. Blood Venous blood specimen / Unknown 11/20/2023 10:43 AM EDT 11/20/2023 2:13 PM EDT us Fred Lowery MD LAB BLOOD ORDERABLES Final Result Performing Organization Address City/[facility]/ZIP Co de Phone Number [facility] [address] [place] [address] [phone] * Cologuard?? colon cancer screening (02/09/2023 8:34 AM EST) Cologuard Result Negative Negative 02/17/20 12:58 AM EST [facility] (CLIA #:[id number]) Comment: NEGATIVE TEST RESULT. A negative Cologuard result indicates a low likelihood that a colorectal cancer (CRC) or advanced adenoma (adenomatous polyps with more advanced pre-malignant features) is present. The chance that a person with a negative Cologuard test has a colorectal cancer is less than 1 in 1500 (negative predictive value >99.9%) or has an advanced adenoma is less than 5.3% (negative predictive value 94.7%). These data are based on a prospective cross-sectional study of 10,000 individuals at average risk for colorectal cancer who were screened with both Cologuard and colonoscopy. (Aki Kuo al, N Engl J Med 2014;370(14):3563-4735) The normal value (reference range) for this assay is negative. COLOGUARD RE-SCREENING RECOMMENDATION: Periodic colorectal cancer screening is an important part of preventive healthcare for asymptomatic individuals at average risk for colorectal cancer. Following a negative Cologuard result, the [place] [employer] and U.S. Multi-Society Task Force screening guidelines recommend a Cologuard re-screening interval of 3 years. References: [place] [employer] Guideline for Colorectal Cancer Screening: https://www.cancer.org/cancer/ppwdi-dwkvoc-eayubi/rbqrhsuom-jyjlfdllw-zkddaql/ac s-rec ommendations.html.; Zoltan DK, Katharine CR, Tuyet GrayK, Colorectal Cancer Screening: Recommendations for Physicians and Patients from the U.S. Multi-Society Task Force on Colorectal Cancer Screening , Am J Gastroenterology 2017; 112:8483-0379. TEST DESCRIPTION: Composite algorithmic analysis of stool DNA-biomarkers with hemoglobin immunoassay. Quantitative values of individual biomarkers are not [...] Oviedo et al, N Engl J Med 2014;370(14):2383-8287.) Cologuard may produce a false negative or false positive result (no colorectal cancer or precancerous polyp present at colonoscopy follow up). A negative Cologuard test result does not guarantee the absence of CRC or advanced adenoma (pre-cancer). The current Cologuard screening interval is every 3 years. ([place] [employer] and U.S. Multi-Society Task Force). Cologuard performance data in a 10,000 patient pivotal study using colonoscopy as the reference method can be accessed at the following location: www.[employer]/results. Additional description of the Cologuard test process, warnings and precautions can be found at www.[employer] I.D.rd.com. Stool specimen (specimen) 02/09/2023 8:34 AM EST 02/10/2023 12:38 PM EST Fred Lowery MD LAB MOLECULAR DIAGNOSTICS O RDERABLES Final Result [facility] (CLIA #:[id number]) [address] [place] [address], from Last 3 Months or Most Recently Relevant to Health Maintenance Insurance [facility] < [address] [id number] [place] [address] IZAIAH MCNAMARA [id number] [place] [address] Care Teams Video Game Animator Relationship Specialty Start Date End Date Fred Lowery MD [address] [place] [address] IZAIAH Mcnamara13 PCP - General Internal Medicine 03/20/13
--- OUTSIDE RECORDS SUMMARY | 2024-11-21 10:15 | XMS_ITS | Encounter Summary ---
Author Organization [employer] Address [address] [place] [address] [address] [place] [address] Care Team Providers Care Slitting And Shipping Supervisor Name Role Phone Fred Lowery MD Primary Care Provider [phone] Encounter Details Date Type Department Care Team ([facility] st Contact Info) Description 06/15/2022 Orders Only [facility] [address] [place], [place] [phone] Alla Monroe LPN Social History Tobacco Use [...] on filedocumented in this encounter Care Teams Slitting And Shipping Supervisor Relationship Specialty Start Date End Date Fred Lowery MD [address] [place] [address] PCP - General Internal Medicine 03/20/13 documented as of this encounter
--- OUTSIDE RECORDS SUMMARY | 2024-11-21 10:15 | XMS_ITS | Encounter Summary ---
Author Organization [employer] Address [address] [facility] 7t [place] [address] Care Team Providers Care Counseling Department Chair Name Role Phone Fred Lowery MD Primary Care Provider [phone] Reason for Visit * Reason Onset Date Comments Med Refill 02/05/2024 Encounter Details Date Type Department Care Team ([facility] st Contact Info) Description 02/05/2024 Refill [facility] [address] [place], [place] [phone] Fred Lowery MD [address] [place] [address] Social History Tobacco Use Types Packs/Day Years [...] documented as of this encounter Care Teams Counseling Department Chair Relationship Specialty Start Date End Date Fred Lowery MD [address] [place] [phone] PCP - General Internal Medicine 03/20/13 documented as of this encounter
--- OUTSIDE RECORDS SUMMARY | 2024-11-21 10:15 | XMS_ITS | Encounter Summary ---
Author Organization [employer] Address [address] [facility] 7 [place] [address] Care Team Providers Care Well Cleaner Name Role Phone Fred Lowery MD Primary Care Provider [phone] Reason for Visit * Reason Onset Date Comments Nurse Triage 08/30/2022 Encounter Details Date Type Department Care Team ([facility] st Contact Info) Description 08/30/2022 Telephone [facility] [address] [place] [address] Fred Lowery MD [address] [place] [address] Nurse Triage Social History Tobacco Use Types [...] to look at left knee . apt [facility] 240pm 08/31. Insurance is verified as active [...] accepted this outcome Please contact pt at [phone] documented in this encounter Plan of Treatment Not on file documented as of this encounter Visit Diagnoses Not on filedocumented in this encounter Care Teams Well Cleaner Relationship Specialty Start Date End Date Fred Lowery MD [address] [place] [phone] PCP - General Internal Medicine 03/20/13 documented as of this encounter
--- OUTSIDE RECORDS SUMMARY | 2024-11-21 10:15 | XMS_ITS | Encounter Summary ---
Author Organization [employer] [facility] Address [address] [place] [address] [address] [address] Care Team Providers Care Terminal Gauger Name Role Phone Fred Lowery MD Primary Care Provider [phone] Reason for Referral * Consultation (Routine) - Canceled Specialty Diagnoses / Procedures Referred By Alonso burdick Referred To Contact General Surgery Diagnoses Abdominal wall pain Fred Lowery MD [address] [place] [address] Phone: tel: fax: Referral ID Status Reason Start Date Expiration Date Visits Requested Visits Authorized [id number] Canceled Specialty Services Required 11/22/2023 11/21/2024 1 1 * Imaging (Routine) - Closed Specialty Diagnoses / Procedures Referred By Alonso burdick Referred To Contact Radiology Diagnoses Elevated alkaline phosphatase level Procedures US Abdomen Complete Fred Lowery MD [address] [place] [address] Phone: tel: fax: [address] Phone: tel: fax: Referral ID Status Reason Start Date Expiration Date Visits Re quested Visits Authorized [id number] Closed 11/21/2023 11/20/2024 1 1 Encounter Details Date Type Department Care Team (Late st Contact Info) Description 11/21/2023 Orders Only [facility] MED & PEDS [address] [place] [address] Fred Lowery MD [address] [facility] [place] [address] Elevated alkaline phosphatase level (Primary Dx); Abdominal [...] AM EDT Narrative 12/09/2023 9:38 AM EDT [place] [address] Ultrasound Report Signed Patient: Ambika Sweeney MR#: [id number] : 1965 Acct:[id number] Age/Sex: 58 / F ADM Date: 11/30/23 Loc: HO.US Attending Dr: Fred Lowery MD Ordering Physician: Fred Lowery MD Date of Service: 11/30/23 Procedure(s): US abdomen complete Accession Number(s): [id number] cc: Fred Lowery MD EXAMINATION: US ABDOMEN [...] Kirby Duque MD 12/09/2023 09:35 AM EDT Dictated By: Kirby Duque MD Signed By: <Electronically signed by Kirby Duque MD in OV> 12/09/23 0935 DD/ 0812 TD/TT: 11/30/23 0859 Transcribing Machine Operator: SS Procedure Note Donotuseinterpreter, Image - 12/09/[address] [address] Ultrasound Report Signed Patient: Nicci Sweeney#: [id number] : 1965Acct:[id number] Age/Sex: 58 / FADM Date: 11/30/23 Loc: HO.US Attending Dr: Fred Lowery MD Ordering Physician: Fred Lowery MD Date of Service: 11/30/23 Procedure(s): US abdomen complete Accession Number(s): [id number] cc: Fred Lowery MD EXAMINATION: US ABDOMEN [...] Kirby Duque MD 12/09/2023 09:35 AM EDT Dictated By: Kirby Duque MD Signed By: <Electronically signed by Kirby Duque MD in OV> 12/09/23 0935 DD/ TD/TT: 11/30/2359 Transcribing Machine Operator: SS us Thevenin Beauzile MD IMG US PROCEDURES Final Res ult documented in this encounter Visit Diagnoses Diagnosis Elevated alkaline phosphatase level- Primary Abdominal wall pain Abdominal pain, unspecified site documented in this encounter Additional Health Concerns Assessment Noted Time PHQ-9 Depression Total Score: 14 024 9:41 AM EDT documented as of this encounter Care Teams Terminal Gauger Relationship Specialty Start Date End Date Fred Lowery MD [address] [place] [address] PCP - General Internal Medicine 03/20/13 documented as of this encounter
--- OUTSIDE RECORDS SUMMARY | 2024-11-21 10:15 | XMS_ITS | Encounter Summary ---
Author Organization [employer] Address [address] [place] [address] 7 [place] [address] Care Team Providers Care Lung Gun Operator Name Role Phone Fred Lowery MD Primary Care Provider [phone] Reason for Referral * Consultation (Routine) - Closed Specialty Diagnoses / Procedures Referred By Alonso burdick Referred To Contact Pain Medicine Diagnoses Lumbar nerve root compression Fred Lowery MD [address] [place] [address] Phone: tel: fax: Referral ID Status Reason Start Date Expiration Date V isits Requested Visits Authorized [id number] Closed Specialty Services Required 10/13/2024 10/13/2025 1 1 Encounter Details Date Type Department Care Team ([facility] st Contact Info) Description 10/13/2024 Orders Only [facility] CHC MED & PEDS [address] [place] [address] Fred Lowery MD [address] [place] [address] Lumbar nerve root compression (Primary Dx) Social History Tobacco Use Types [...] Referral to Pain Medicine Outpatient Referral Routine Lumbar nerve root compression Expected: 10/13/2024 (Approximate), Expires: 10/13/2025 documented as of this encounter Visit Diagnoses Diagnosis Lumbar nerve root compression- Primary documented in this encounter Additional Health Concerns Assessment Noted Time PHQ-9 Depression Total Score: 14 024 9:41 AM EDT documented as of this encounter Care Teams Lung Gun Operator Relationship Specialty Start Date End Date Fred Lowery MD [address] [place] [address] PCP - General Internal Medicine 03/20/13 documented as of this encounter
--- OUTSIDE RECORDS SUMMARY | 2024-11-21 10:15 | XMS_ITS | Encounter Summary ---
Author Organization [employer] Address [address] [place] [address] [address] [address] Care Team Providers Care Harness And Bag Inspector Name Role Phone Fred Lowery MD Primary Care Provider [phone] Reason for Referral * Imaging (Routine) - Pending Review Specialty Diagnoses / Procedures Referred By Contac t Referred To Contact Radiology Diagnoses Acute midline low back pain with right-sided sciatica Procedures MR Lumbar Spine w/o Contrast Fred Lowery MD [address] [place] [address] Phone: tel: fax: [facility], [address] [address] Phone: tel: fax: Referral ID Status Reason Start Date Expiration Date V isits Requested Visits Authorized [id number] Pending Review 07/03/2024 07/03/2025 1 1 Encounter Details Date Type Department Care Team ([facility] st Contact Info) Description 07/03/2024 Orders Only [facility] CHC MED & PEDS [address] [place], [place] [phone] Fred Lowery MD [address] [place] [address] Acute midline low back pain with right-sided sciatica (Primary Dx) Social History Tobacco Use Types [...] Comments MR LUMBAR SPINE WO CONTRAST Routine 07/22/2024 Acute midline low back pain with right-sided sciatica documented in this encounter Results * MR Lumbar Spine w/o Contrast (07/22/2024) Anatomical Region Laterality Modality Spine, L-spine Magnetic Resonan ce us Fred Lowery MD IMG MRI PROCEDURES Final Re sult documented in this encounter Visit Diagnoses Diagnosis Acute midline low back pain with right-sided sciatica- Primary documented in this encounter Additional Health Concerns Assessment Noted Time PHQ-9 Depression Total Score: 14 024 9:41 AM EDT documented as of this encounter Care Teams Harness And Bag Inspector Relationship Specialty Start Date End Date Fred Lowery MD [address] [place] [address] PCP - General Internal Medicine 03/20/13 documented as of this encounter
--- OUTSIDE RECORDS SUMMARY | 2024-11-21 10:15 | XMS_ITS | Encounter Summary ---
Author Organization [employer] Address [address] [place] [address] 7 [place] [address] Care Team Providers Care Plc Controls Engineer Name Role Phone Fred Lowery MD Primary Care Provider [phone] Reason for Visit * Reason Onset Date Comments Referral 08/30/2022 Encounter Details Date Type Department Care Team ([facility] st Contact Info) Description 08/30/2022 Telephone [facility] CHC MED & PEDS [address] [place], [place] [phone] Fred Lowery MD [address] [place] [address] Referral Social History Tobacco Use Types Packs/Day [...] Tc from pt requesting a referral to [facility] neurology on with Dr. Aburto. States the audiology evaluation advised her that her left ear is declining and not symmetrical to the right. They recommended her to go see a neurologist. documented in this encounter Plan of Treatment Not on file documented as of this encounter Visit Diagnoses Diagnosis Decreased hearing, left- Primary documented in this encounter Care Teams Plc Controls Engineer Relationship Specialty Start Date End Date Fred Lowery MD [address] [place] [address] PCP - General Internal Medicine 03/20/13 documented as of this encounter
--- OUTSIDE RECORDS SUMMARY | 2024-11-21 10:15 | XMS_ITS | Encounter Summary ---
Author Organization [employer] Address [address] [facility] 7t [place] [address] Care Team Providers Care Pickle Maker Name Role Phone Fred Lowery MD Primary Care Provider [phone] Encounter Details Date Type Department Care Team ([facility] Contact Info) Description 05/14/2024 Orders Only [facility] [address] [place], [place] [address] Provider, MD Blair Social History Tobacco Use Types Packs/Day Years [...] Procedure Name Priority Date/Time Associated Diagnosis Comments HM MAMMOGRAPHY Routine 05/13/2024 1:10 PM EDT documented in this encounter Results * Hm Mammography (05/13/2024 1:10 PM EDT) Anatomical Region Laterality Modality Other us Historical Provider HEALTH MAINTENANCE Final Result documented in this encounter Visit Diagnoses Not on filedocumented in this encounter Additional Health Concerns Assessment Noted Time PHQ-9 Depression Total Score: 14 024 9:41 AM EDT documented as of this encounter Care Teams Pickle Maker Relationship Specialty Start Date End Date Fred Lowery MD [address] [place] [address] PCP - General Internal Medicine 03/20/13 documented as of this encounter
--- OUTSIDE RECORDS SUMMARY | 2024-11-21 10:15 | XMS_ITS | Encounter Summary ---
Author Organization [employer] Address [address] [facility] [address]t [place] [address] Care Team Providers Care Dentist Private Practice Name Role Phone Fred Lowery MD Primary Care Provider [phone]- [phone] Reason for Visit * Reason Onset Date Comments triage 06/07/2022 Encounter Details Date Type Department Care Team ([facility] st Contact Info) Description 06/07/2022 Telephone [facility] MEDICINE [address] [place] [address] Fred Lowery MD [address] [place], [place] [phone] triage Social History Tobacco Use Types Packs/Day [...] but, gets chills on occasion. apt at [facility] @ 340pm Protocol Used: Breathing Difficulty [...] on filedocumented in this encounter Care Teams Dentist Private Practice Relationship Specialty Start Date End Date Fred Lowery MD [address] [place] [address] PCP - General Internal Medicine 03/20/13 documented as of this encounter
--- OUTSIDE RECORDS SUMMARY | 2024-11-21 10:15 | XMS_ITS | Encounter Summary ---
Author Organization [facility] Address [address] [place] [address] Phone Care Team Providers Care Ux Design Manager Name Role Phone Fred Lowery MD Primary Care Provider [phone] Encounter Details Date Type Department Care Team (Late st Contact Info) Description 07/21/2021 Documentation Only [facility] [address] [place] [address] Yumiko Daniels PA Social History Tobacco Use [...] Care Team (Late st Contact Info) Description 04/28/2025 9:20 AM EDT Office Visit [facility] [address] [place] [address] Tucker Jensen MD [address] [place] [address] [place] [phone] documented as of this encounter Visit Diagnoses Not on filedocumented in this encounter Care Teams Ux Design Manager Relationship Specialty Start Date End Date Fred Lowery MD [address] [place] [address] PCP - General Internal Medicine 10/16/23 documented as of this encounter
--- OUTSIDE RECORDS SUMMARY | 2024-11-21 10:15 | XMS_ITS | Encounter Summary ---
Author Organization [facility] Address [address] [place] [address] Phone Care Team Providers Care Manager Speech Name Role Phone Fred Lowery MD Primary Care Provider [phone] Encounter Details Date Type Department Care Team (Late Contact Info) Description 12/13/2023 Documentation Only [facility] [address] [place] [address] Tucker Jensen MD [address] [place] [address] [place] [phone] Social History Tobacco Use Types Packs/Day Years [...] Visit [facility] [address] [place] [address] Tucker Jensen MD [address] [place] [address] [place] [address] documented as of this encounter Visit Diagnoses Not on filedocumented in this encounter Care Teams Manager Speech Relationship Specialty Start Date End Date Fred Lowery MD [address] [place] [address] PCP - General Internal Medicine 10/16/23 documented as of this encounter
--- OUTSIDE RECORDS SUMMARY | 2024-11-21 10:15 | XMS_ITS | Encounter Summary ---
Author Organization [employer] Address [address] [facility] 7t [place] [address] Care Team Providers Care Assembly Line Worker Name Role Phone Fred Lowery MD Primary Care Provider [phone]- [phone] Encounter Details Date Type Department Care Team ([facility] st Contact Info) Description 11/14/2022 Orders Only [facility] CHC MED & PEDS [address] [place], [place] [phone] Fred Lowery MD [address] [place], [place] [phone] Encounter for screening colonoscopy Social History Tobacco [...] Name Priority Date/Time Associated Diagnosis Comments LAB COLOGUARD COLON CANCER SCREEN Routine 02/09/2023 8:34 AM EST Encounter for screening colonoscopy documented in this encounter Results * Cologuard?? colon cancer screening (02/09/2023 8:34 AM EST) Cologuard Result Negative Negative 02/17/20 12:58 AM EST [facility] (CLIA #:[id number]) Comment: NEGATIVE TEST RESULT. A negative Cologuard [...] (Aki Kuo al, N Engl J Med 2014;370(14):6197-4124) The normal value (reference range) for this assay is negative. COLOGUARD RE-SCREENING RECOMMENDATION: Periodic colorectal cancer screening is an important part of preventive healthcare for asymptomatic individuals at average risk for colorectal cancer. Following a negative Cologuard result, the [place] Cancer Society and U.S. Multi-Society Task Force screening guidelines recommend a Cologuard re-screening interval of 3 years. References: [employer] Society Guideline for Colorectal Cancer Screening: https://www.cancer.org/cancer/kmsxv-svtcmd-mpbndc/ktgqnvrdf-zoaztuuvp-jnoubld/ac s-rec ommendations.html.; Zoltan DK, Katharine HARRIS, Tuyet GrayK, Colorectal Cancer Screening: Recommendations for Physicians and Patients from the U.S. Multi-Society Task Force on Colorectal Cancer Screening , Am J Gastroenterology 2017; 112:0353-2556. TEST DESCRIPTION: Composite algorithmic analysis of stool [...] Oviedo et al, N Engl J Med 2014;370(14):4592-9361.) Cologuard may produce a false negative or false positive result (no colorectal cancer or precancerous polyp present at colonoscopy follow up). A negative Cologuard test result does not guarantee the absence of CRC or advanced adenoma (pre-cancer). The current Cologuard screening interval is every 3 years. ([employer] Cancer Society and U.S. Multi-Society Task Force). Cologuard performance data in a 10,000 patient pivotal study using colonoscopy as the reference method can be accessed at the following location: www.RJMetrics/results. Additional description of the Cologuard test process, warnings and precautions can be found at www.[employer]ernium[employer]Expert Planetrd.Kaltura. Stool specimen (specimen) 02/09/2023 8:34 AM EST 02/10/2023 12:38 PM EST Fred Lowery MD LAB MOLECULAR DIAGNOSTICS O RDERABLES Final Result [facility] (CLIA #:[id number]) [address] [place] [address], documented in this encounter Visit Diagnoses Diagnosis Encounter for screening colonoscopy documented in this encounter Care Teams Assembly Line Worker Relationship Specialty Start Date End Date Fred Lowery MD [address] [place] [address] PCP - General Internal Medicine 03/20/13 documented as of this encounter
--- OUTSIDE RECORDS SUMMARY | 2024-11-21 10:15 | XMS_ITS | Encounter Summary ---
Author Organization [facility] Address [address] [place] [address] Phone Care Team Providers Care Elder Assistant Name Role Phone Fred Lowery MD Primary Care Provider [phone] Encounter Details Date Type Department Care Team (Late st Contact Info) Description 01/03/2022 Documentation Only [facility] [address] [place] [address] Yumiko Daniels PA Social History [...] Visit [facility] [address] [place] [address] Tucker Jensen MD [address] [place] [address] [place] [phone] documented as of this encounter Visit Diagnoses Not on filedocumented in this encounter Care Teams Elder Assistant Relationship Specialty Start Date End Date Fred Lowery MD [address] [place] [address] PCP - General Internal Medicine 10/16/23 documented as of this encounter
--- OUTSIDE RECORDS SUMMARY | 2024-11-21 10:15 | XMS_ITS | Clinical Summary ---
Author Organization [facility], Address [address] [place] [address] [place] [address] Phone Care Team Providers Care Supervisor Hydrochloric Area Name Role Phone Fred Lowery MD Primary Care Provider [phone] Allergies Active Allergy Reactions Criticality Noted Date [...] 0 Active cholecalciferol (VITAMIN D-3) 50 MCG (1999 UT) tablet Take 2,000 Units by mouth daily [...] mouth 1 (one) time each day Active hydroCHLOROthia zide 25 MG tablet Take 1 tablet (25 mg total) by mouth every morning 30 tablet 11 5 Active spironolactone (ALDACTONE) 50 MG tablet Take 1 tablet (50 mg total) by mouth every morning 60 tablet 3 5 Active propranolol LA (INDERAL LA) 160 MG 24 hr capsule Take 1 capsule (160 mg total) by mouth 1 (one) time each day Do not crush, chew, or split. 30 capsule 11 5 Active losartan (COZAAR) 50 MG tablet Take 1 tablet (50 mg total) by mouth every morning 90 tablet 3 5 Active NIFEdipine XL (PROCARDIA XL) 60 MG 24 hr tablet Take 1 tablet (60 mg total) by mouth in the morning and 1 tablet (60 mg total) before bedtime. Do not crush, chew, or split. 180 tablet 3 5 Active Active Problems Problem Noted Date Diagnosed Date Essential hypertension Cyst of kidney Resolved Problems Problem Noted Date Diagnosed Date Resolved Date Dysuria 03/27/2019 12/14/2020 Vitamin D deficiency 021 Encounters Date Type Department Care Team Description 10/22/2024 4:10 PM EDT Office Visit [facility], [address] [place] [address] Tucker Jensen MD Essential hypertension (Primary Dx); Prediabetes 09/10/2024 Refill [facility], [address] [place] [address] Suma Torrez MA 08/28/2024 Refill [facility], [address] [place] [address] Suma Torrez MA from Last 3 Months Immunizations Immunization Administration Dates Next Due Hepatitis B 08/21/2006,03/21/2006,02/16/2006 [...] Visit [facility], [address] [place] [address] Tucker Jensen MD [address] [place] [id number] Health Maintenance Due Date Last Done Comments Breast Cancer Screening 1965 Hepatitis B Vaccine (1 of 3 - 19+ 3-dose series) 1986 08/14/2016, 08/21/2006, 03/21/2006, Additional history exists Pneumococcal Vaccine: 50+ Ye ars (2 of 2 - PCV) 03/03/2010 03/03/2009 Colorectal Cancer Screening: Annual FOBT 02/26/2016 Colorectal Cancer Screening: Colonoscopy 02/26/2016 Colorectal Cancer Screening: Sigmoidoscopy 02/26/2016 Influenza Vaccine (#1) 2024 9, 12/18/2017, 11/09/2009 Pneumococcal Vaccine: Peds ( 0 to 5 Years) and At-Risk Patients (6 to 49 Years) Discontinued 03/03/2009 Procedures Procedure Name Priority Date/Time Associated Diagnosis Comments REFLEXIVE URINE CULTURE (HC) Routine 10/24/2024 8:59 AM EDT HEPATIC FUNCTION PANEL Routine 10/24/2024 8:59 AM EDT Prediabetes HEMOGLOBIN A1C Routine 10/24/2024 8:59 AM EDT Prediabetes BASIC METABOLIC PANEL Routine 10/24/2024 8:59 AM EDT Prediabetes URINALYSIS, COMPLETE Routine 10/24/2024 8:59 AM EDT Prediabetes URINE ALBUMIN / CREATININE RATIO Routine 10/24/2024 8:59 AM EDT Prediabetes CBC Routine 10/24/2024 8:59 AM EDT Prediabetes LIPID PANEL Routine 10/24/2024 8:59 AM EDT Prediabetes from Last 3 Months Results * Reflexive Urine Culture (10/24/2024 8:59 AM EDT) Culture Result, Urine [facility] Comment:NO CULTURE INDICATED 10/24/2024 8:59 AM EDT 10/24/2024 8:59 AM EDT Narrative [facility] - 10/25/2024 6:26 PM EDT FASTING:YES FASTING: YES Resulting Agency Comment Performing Organization Information: Site ID: [id number] Name: [facility] Address: [address] [place] [phone] Director: Alyson Rivers Tucker Jensen MD LAB [id number] SOLICITED RESULTS Final Result [facility] [place] [facility] [address] [place] [address] * (ABNORMAL) Urinalysis, Complete w/reflex to Culture (10/24/2024 8:59 AM EDT) Color, Urine YELLOW YELLOW [facility] Appearance Urine CLEAR CLEAR [facility] [place] [facility] Specific Adams, UA 1.016 1.001 - 1.035 [facility] pH Urine 7.5 5.0 - 8.0 [facility] Glucose, Ur NEGATIVE NEGATIVE [facility] [place] [facility] Bilirubin, Urine NEGATIVE NEGATIVE [facility] [place] [facility] Ketones, Urine NEGATIVE NEGATIVE [facility] Hemoglobin Ur Ql Strip NEGATIVE NEGATIVE [facility] [facility] [place] [facility] Protein, Ur NEGATIVE NEGATIVE [facility] Nitrite, Urine NEGATIVE NEGATIVE [facility] WBC Esterase Urine NEGATIVE NEGATIVE [facility] [facility] [place] [facility] WBC, Urine NONE SEEN < OR = 5 /HPF [facility] [place] [facility] RBC, Urine 0-2 < OR = 2 /HPF [facility] [place] [facility] Epithelial Cells in Urine 6-10(A) < OR = 5 /HPF [facility] [place] [facility] Trans Epithelial, Urine CANCELED < OR = 5 /HPF [facility] Comment:Result canceled by t he ancillary. Renal Epithelial Cells, Urine CANCELED < OR = 3 /HPF [facility] Comment:Result canceled by t he ancillary. Bacteria FEW(A) NONE SEEN /HPF [facility] [place] [facility] Calcium Oxalate Crystals, Urine CANCELED NONE OR FEW /HPF [facility] Comment:Result canceled by t he ancillary. Triple Phosphate Crystals, Urine CANCELED NONE OR FEW /HPF [facility] Comment:Result canceled by t he ancillary. Uric Acid Crystals, Urine CANCELED NONE OR FEW /HPF [facility] [place] [facility] Comment:Result canceled by t he ancillary. Amorphous Sediments CANCELED NONE OR FEW /HPF [facility] Comment:Result canceled by t he ancillary. Crystals CANCELED NONE SEEN /HPF [facility] Comment:Result canceled by t he ancillary. Hyaline Casts, Urine NONE SEEN NONE SEEN /LPF [facility] Granular Casts, Urine CANCELED NONE SEEN /LPF [facility] [facility] Comment:Result canceled by t he ancillary. Casts CANCELED NONE SEEN /LPF [facility] Comment:Result canceled by t he ancillary. Yeast, UA CANCELED NONE SEEN /HPF [facility] Comment:Result canceled by t he ancillary. Note: [facility] [facility] Comment: This urine was analyzed for the presence of WBC, RBC, bacteria, casts, and other formed elements. Only those elements seen were reported. Urine Urine specimen obtained by clean catch procedure / Unknown 10/24/2024 8:59 AM EDT 10/24/2024 8:59 AM EDT Narrative [facility] 10/25/2024 6:26 PM EDT FASTING:YES FASTING: YES Resulting Agency Comment Performing Organization Information: Site ID: [id number] Name: [facility] Address: [address] [place] [phone] Director: Alyson Rivers Tucker Jensen MD LAB URINE ORDERABLES Final Re sult [facility] [facility] [phone] * Urine Albumin / Creatinine Ratio (10/24/2024 8:59 AM EDT) Creatinine, Ur 109 20 - 275 mg/dL [facility] [facility] Urine Microalbumin 0.6 See Note: mg/dL [facility] [employer] [facility] Comment: Reference Range: Reference Range Not established Microalb/Creat Ratio 6 <30 mg/g creat [employer] [employer] [facility] [place] [facility] Comment: The ADA defines abnormalities in albumin excretion as follows: Albuminuria Category Result (mg/g creatinine) Normal to Mildly increased <30 Moderately increased 30-299 Severely increased > OR = 300 The ADA recommends that at least two of three specimens collected within a 3-6 month period be abnormal before considering a patient to be within a diagnostic category. Urine Urine specimen obtained by clean catch procedure / Unknown 10/24/2024 8:59 AM EDT 10/24/2024 8:59 AM EDT Narrative [facility] - 10/25/2024 6:26 PM EDT FASTING:YES FASTING: YES Resulting Agency Comment Performing Organization Information: Site ID: [id number] Name: [facility] [place] [facility] Address: [address] [place] [phone] Director: Alyson Rivers Tucker Jensen MD LAB URINE ORDERABLES Final Re sult [facility] [place] [facility] [address] [place] [phone] * CBC (10/24/2024 8:59 AM EDT) WBC 5.8 3.8 - 10.8 Thousand/ uL [facility] RBC 4.66 3.80 - 5.10 Million/u L [facility] [facility] [place] [facility] Hemoglobin 13.5 11.7 - 15.5 g/dL [facility] [facility] [place] [facility] Hematocrit 41.1 35.0 - 45.0 % [facility] MCV 88.2 80.0 - 100.0 fL [facility] MCH 29.0 27.0 - 33.0 pg [facility] MCHC 32.8 32.0 - 36.0 g/dL [facility] Comment: For adults, a slight decrease in the calculated MCHC value (in the range of 30 to 32 g/dL) is most likely not clinically significant; however, it should be interpreted with caution in correlation with other red cell parameters and the patient's clinical condition. RDW 13.6 11.0 - 15.0 % [facility] [facility] Platelets 305 140 - 400 Thousand/ uL [facility] [place] [facility] MPV 9.7 7.5 - 12.5 fL [facility] [employer] [facility] [place] [facility] Blood Venous blood / Unknown 10/24/2024 8:59 AM EDT 10/24/2024 8:59 AM EDT Narrative [facility] - 10/25/2024 6:26 PM EDT FASTING:YES FASTING: YES Resulting Agency Comment Performing Organization Information: Site ID: [id number] Name: [facility] [place] [facility] Address: [address] [place] [phone] Director: Alyson Rivers us Tucker Jensen MD LAB BLOOD ORDERABLES Final Re sult [facility] [facility] [place] [facility] [address] [place] [phone] * (ABNORMAL) Hemoglobin A1c (10/24/2024 8:59 AM EDT) Hemoglobin A1C 5.7(H) <5.7 % [facility] [place] [facility] Comment: For someone without known diabetes, a hemoglobin A1c value between 5.7% and 6.4% is consistent with prediabetes and should be confirmed with a follow-up test. For someone with known diabetes, a value <7% indicates that their diabetes is well controlled. A1c targets should be individualized based on duration of diabetes, age, comorbid conditions, and other considerations. This assay result is consistent with an increased risk of diabetes. Currently, no consensus exists regarding use of hemoglobin A1c for diagnosis of diabetes for children. Blood Venous blood / Unknown 10/24/2024 8:59 AM EDT 10/24/2024 8:59 AM EDT Narrative [facility] - 10/25/2024 6:26 PM EDT FASTING:YES FASTING: YES Resulting Agency Comment Performing Organization Information: Site ID: [id number] Name: [facility] [place] [facility] Address: [address] [place] [phone] Director: Alyson Rivers us Tucker Jensen MD LAB BLOOD ORDERABLES Final Re sult Performing Organization Address [facility] Co de Phone Number [facility] [employer] [place] [facility] [address] [place] [address] * Hepatic function panel (10/24/2024 8:59 AM EDT) Pathologist [facility] Total Protein 7.3 6.1 - 8.1 g/dL [facility] Albumin 4.0 3.6 - 5.1 g/dL [facility] Globulin, Total 3.3 1.9 - 3.7 g/dL (calc) [facility] A/G Ratio 1.2 1.0 - 2.5 (calc) [facility] Total Bilirubin 0.4 0.2 - 1.2 mg/dL [facility] [facility] Bilirubin, Direct 0.1 < OR = 0.2 mg/dL [facility] Bilirubin, Indirect 0.3 0.2 - 1.2 mg/dL (calc) [facility] Alkaline Phosphatase 94 37 - 153 U/L [facility] [facility] AST (SGOT) 17 10 - 35 U/L [facility] ALT (SGPT) 18 6 - 29 U/L [facility] [facility] Blood Venous blood / Unknown 10/24/2024 8:59 AM EDT 10/24/2024 8:59 AM EDT Narrative [facility] - 10/25/2024 6:26 PM EDT FASTING:YES FASTING: YES Resulting Agency Comment Performing Organization Information: Site ID: [id number] Name: [facility] [place] [email or web address] Address: [address] [place] [phone] Director: Alyson Rivers Tucker Jensen MD LAB BLOOD ORDERABLES Final Re sult Performing Organization Address [facility] Co de Phone Number [facility] [place] [facility] [address] [place] [phone] * (ABNORMAL) Lipid panel (10/24/2024 8:59 AM EDT) [facility] Cholesterol 185 <200 mg/dL [facility] [facility] [place] [facility] HDL 58 > OR = 50 mg/dL [facility] [place] [facility] Triglycerides 73 <150 mg/dL [facility] [place] [facility] LDL Direct 111(H) mg/dL (calc) [facility] [place] [facility] Comment: Reference range: <100 Desirable range <100 mg/dL for primary prevention; <70 mg/dL for patients with CHD or diabetic patients with > or = 2 CHD risk factors. LDL-C is now calculated using the Savage calculation, which is a validated novel method providing better accuracy than the Friedewald equation in the estimation of LDL-C. Xavier SS et al. ROMINA. 2013;310(19): 0512-9299 (http://education.[employer]/faq/ONH149) Chol/HDL Ratio 3.2 <5.0 (calc) [facility] [place] [facility] Non HDL Cholesterol 127 <130 mg/dL (calc) [facility] [place] [facility] Comment: For patients with diabetes plus 1 major ASCVD risk factor, treating to a non-HDL-C goal of <100 mg/dL (LDL-C of <70 mg/dL) is considered a therapeutic option. Blood Venous blood / Unknown 10/24/2024 8:59 AM EDT 10/24/2024 8:59 AM EDT Narrative [facility] - 10/25/2024 6:26 PM EDT FASTING:YES FASTING: YES Resulting Agency Comment Performing Organization Information: Site ID: [id number] Name: [facility] [place] [facility] Address: [address] [place] [phone] Director: Alyson Rivers us Tucker Jensen MD LAB BLOOD ORDERABLES Final Re sult [facility] [facility] [place] [facility] [address] [place] [phone] * Basic metabolic panel (10/24/2024 8:59 AM EDT) [facility] Glucose 88 65 - 99 mg/dL [facility] [place] [facility] Comment: Fasting reference interval BUN 11 7 - 25 mg/dL [facility] [facility] [place] [facility] Creatinine 0.87 0.50 - 1.03 mg/dL [facility] [facility] [place] [facility] eGFR CKD-EPI CR 2020 78 > OR = 60 mL/min/1. 73m2 [facility] [employer] [facility] [place] [facility] BUN/Creatinine Ratio SEE NOTE: 6 - 22 (calc) [facility] [facility] [place] [facility] Comment: Not Reported: BUN and Creatinine are within reference range. Sodium 138 135 - 146 mmol/L [facility] [facility] [place] [email or web address] Potassium 3.9 3.5 - 5.3 mmol/L [facility] [facility] Chloride 105 98 - 110 mmol/L [facility] [facility] Bicarbonate (CO2) 26 20 - 32 mmol/L [facility] [facility] Calcium 9.2 8.6 - 10.4 mg/dL [facility] [facility] Blood Venous blood / Unknown 10/24/2024 8:59 AM EDT 10/24/2024 8:59 AM EDT Narrative [facility] - 10/25/2024 6:26 PM EDT FASTING:YES FASTING: YES Resulting Agency Comment Performing Organization Information: Site ID: [id number] Name: [facility] [place] [facility] Address: [address] [place] [phone] Director: Alyson Rivers Tucker Jensen MD LAB BLOOD ORDERABLES Final Re sult [facility] [employer] [place] [facility] [address] [place] [phone] from Last 3 Months Insurance [facility] One Care Dual SNP ([id number]) [place] [phone] Care Teams Supervisor Hydrochloric Area Relationship Specialty Start Date End Date Fred Lowery MD [address] [place] [phone] PCP - General Internal Medicine 10/16/23
--- OUTSIDE RECORDS SUMMARY | 2024-11-21 10:15 | XMS_ITS | Encounter Summary ---
Author Organization [facility] Address [address] [place] [address] [address], [place] [address] Care Team Providers Care Tone Regulator Name Role Phone Fred Lowery MD Primary Care Provider [phone] Reason for Referral * Consultation (Routine) - Canceled Specialty Diagnoses / Procedures Referred By Alonso burdick Referred To Contact Physical Therapy Diagnoses Low back pain, unspecified back pain laterality, unspecified chronicity, unspecified whether sciatica present Fred Lowery MD [address] [place] [address] Phone: tel: fax: Referral ID Status Reason Start Date Expiration Date Visits Requested Visits Authorized [id number] Canceled Specialty Services Required 04/02/2024 04/02/2025 1 1 Reason for Visit * Reason Onset Date Comments Nurse Triage 04/02/2024 Encounter Details Date Type Department Care Team ([facility] st Contact Info) Description 04/02/2024 Telephone [facility] [address] [place] [address] Fred Lowery MD [address] [place] [address] Nurse Triage Social History Tobacco Use Types [...] encounter Miscellaneous Notes * Telephone Encounter - Luly Yancey RN - 04/02/2024 12:24 PM EST Please see below :Pt was given a referral to [facility] , first appt not until 04/14/24. Pt on a cancellation list. Pt wants to know if able to be referred to a different facility. Pt advised will forward toPCP and referral team to review request. * Telephone Encounter - Luly Yancey RN - 04/02/2024 12:13 PM EST Call returned to Ambika Sweeney to triage below. Reports having sx of back lower , mid and upper back pain. Per pt discussed on visit of 03/31/24. Pt was given muscle relaxer. Pt using them only at night as causes drowsiness. Per pt pain is cramp like. Pt was given a referral to [facility] , first appt not until 04/14/24. Pt on a cancellation list. Pt wants to know if able to be referred to a different facility. Pt advised will forward to PCP and referral team to review request. Pt advised to also call [facility] to see if they are able to provide a list of covered PT facilities. Pt agrees. Reviewed, rest, alt heat/ice, OTC Tylenol and lidocaine cream Rx. To continue muscle relaxer. To return call to clinic if pain fails to improve after PT or if worse. Pt agrees. Protocol Used: Back Pain (Adult) Protocol-Based Disposition: See in Office or Video Visit within 3 Days Override (Final) Disposition: Discuss with PCP and Callback by Nurse Today Override Reason: Already seen and questions Video visit offer not recorded Positive Triage Question: * Moderate back pain (e.g., interferes with normal activities) and present > 3 days * All higher-acuity triage questions were negative Care Advice Discussed: * Reassurance and Education - Back Pain * Cold or Heat * Sleep * Pain Medicines * Reasons To Call Back - Numbness or weakness occurs - Loss of control of your bladder or bowel - Severe pain not better after taking pain medicines - Pain begins to shoot into the leg - You become worse * Telephone Encounter - Dacia Dominguez - 04/02/2024 12:10 PM EST Symptom: Back Pain - Not From Injury Outcome: Transfer to a nurse or provider NOW! Reason: Age over 30: sudden AND severe upper back pain The caller accepted this outcome. documented in this encounter Plan of Treatment Scheduled Referrals Name Type Priority Associated Diagnoses Orde r Schedule Referral to Physical Therapy Outpatient Referral Routine Low back pain, unspecified back pain laterality, unspecified chronicity, unspecified whether sciatica present Expected: 04/02/2024 (Approximate), Expires: 04/02/2025 documented as of this encounter Visit Diagnoses Diagnosis Low back pain, unspecified back pain laterality, unspecified chronicity, unspecified whether sciatica present- Primary documented in this encounter Additional Health Concerns Assessment Noted Time PHQ-9 Depression Total Score: 14 024 9:41 AM EDT documented as of this encounter Care Teams Tone Regulator Relationship Specialty Start Date End Date Fred Lowery MD [address] [place] [phone] PCP - General Internal Medicine 03/20/13 documented as of this encounter
== END 2024-11-21 10:55 | disposition home or self-care (01) ==
LOC: HO.PMC 09:40
PROVIDERS: PCP Internal Medicine; Visit Provider Internal Medicine
DX: M54.42 Lumbago with sciatica, left side (principal)
CPT/HCPCS: 99214

== ENCOUNTER → 2024-11-21 09:40 | Outpatient (BNVA) | payer OTHER, SELFPAY | PROVIDERS: PCP Internal Medicine; Visit Provider Internal Medicine | DX: M54.42 Lumbago with sciatica, left side (principal) | CPT/HCPCS: 99212 ==